=== PATIENT | male | born 1965 | race Caucasian/White ===

== ENCOUNTER 2016-12-03 12:11 | Emergency (ER) | payer OTHER ==
[2016-12-03 12:19] VITALS: BMI 34.5
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
[2016-12-03] MEDS ORDERED: OXYCODONE/APAP 5/325MG COMBO TABLET PO ONE (13:00)
[2016-12-03] MEDS ORDERED: DIPHTH,PERTUSS(ACELL),TET 0.5 ML DISP.SYRIN IM ONE (13:00)
[2016-12-03] MEDS ORDERED: METOCLOPRAMIDE HCL 10 MG TABLET (FP) PO ONE ×2 (13:00→13:34)
[2016-12-03] MEDS ORDERED: OXYCODONE/APAP 5/325MG COMBO TABLET ONE (13:35)
[2016-12-03 16:15] VITALS: BP 142/79; PULSE 65; TEMP 97.3
== END 2016-12-03 16:15 | disposition home or self-care (01) ==
LOC: JER 12:11
PROC: 3E0234Z Introduction of Serum, Toxoid and Vaccine into Muscle, Percutaneous Approach (ICD-10-PCS; principal; 2016-12-03)
DX: S06.0X9A Concussion with loss of consciousness of unspecified duration, initial encounter (principal); M79.1 Myalgia; I10 Essential (primary) hypertension; R00.0 Tachycardia, unspecified; F31.9 Bipolar disorder, unspecified; W18.39XA Other fall on same level, initial encounter; Y93.89 Activity, other specified; Y92.481 Parking lot as the place of occurrence of the external cause
CPT/HCPCS: 70450-TC; 71111-TC; 72125-TC; 73130-TC-RT; 73560-TC-RT; 90471; 90715; 99282-25

== ENCOUNTER 2017-08-10 22:03 | Emergency (ER) | payer OTHER ==
[2017-08-10 22:29] VITALS: BP 141/93; PULSE 73; TEMP 98; BMI 39.0
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
[2017-08-11] MEDS ORDERED: LOPERAMIDE HCL 2 MG CAPSULE ONE (01:58)
[2017-08-11] MEDS ORDERED: LOPERAMIDE HCL 2 MG CAPSULE PO ONE (02:17)
== END 2017-08-11 02:33 | disposition home or self-care (01) ==
LOC: JER 22:03
DX: R51 Headache (principal); G43.909 Migraine, unspecified, not intractable, without status migrainosus; F31.9 Bipolar disorder, unspecified; I10 Essential (primary) hypertension; M48.00 Spinal stenosis, site unspecified
CPT/HCPCS: 70450-TC; 99281-25; 99282-25

== ENCOUNTER 2018-03-17 19:49 | Inpatient (IN) | payer OTHER ==
[2018-03-17] MEDS ORDERED: ASPIRIN 81 MG CHEWABLE TABLETS PO ONE (19:55)
--- NOTE | 2018-03-17 19:56 | PDOC ---
Rapid Medical Evaluation Time Seen by Provider: 03/17/18 19:51 Medical Evaluation: Allergies Allergy/AdvReac Type Severity Reaction Status Date / Time morphine Allergy Rash Verified 08/10/17 22:25 meperidine HCl [From Demerol] AdvReac Verified 08/10/17 22:25 03/17/18 19:51 I have performed a brief in-person evaluation of this patient. The patient presents with a chief complaint of: SOB Pertinent physical exam findings: crackles to b/l bases, 3+ pedal edema I have ordered the following: CBC, CMP, BNP, UA, CXR, Cardiac profile, EKG, coags The patient will proceed to the ED for further evaluation. Discharge Disposition - Diagnosis SOB (shortness of breath) - Referrals - Patient Instructions - Post Discharge Activity
[2018-03-17 20:05] VITALS: BMI 36.9
[2018-03-17] MEDS ORDERED: ASPIRIN 81 MG CHEWABLE TABLETS ONE (20:14)
[2018-03-17 20:44] LABS: BASO % 0.3 % (0-2.0); EOS % 5.1 % (0-4.5); HEMATOCRIT 40.9 % (35.4-49); HEMOGLOBIN 13.8 GM/dL (11.7-16.9); LYMPH % 36.4 % (8-40); MCH 29.9 pg (25.7-33.7); MCHC 33.7 g/dl (32.0-35.9); MEAN CELL VOLUME 88.7 fl (80-96); MEAN PLT VOLUME 8.7 fl (7.5-11.1); MONO % 10.5 % (3.8-10.2); NEUT % 47.7 % (42.8-82.8); PLATELET COUNT 237 K/MM3 (134-434); RBC 4.61 M/mm3 (4.00-5.60); RDW 15.6 % (11.9-15.9); WHITE BLOOD COUNT 7.2 K/mm3 (4.0-10.0)
[2018-03-17 21:27] LABS: ALBUMIN 3.8 g/dl (3.4-5.0); ANION GAP 7 (8-16); BILIRUBIN,TOTAL 0.3 mg/dL (0.2-1.0); BLOOD UREA NITROGEN 22 mg/dL (7-18); CALCIUM 8.6 mg/dL (8.5-10.1); CHLORIDE 99 mmol/L (98-107); CO2 35 mmol/L (21-32); CREATININE 1.3 mg/dL (0.7-1.3); GLUCOSE,RANDOM 120 mg/dL (74-106); SGPT/ALT 39 U/L (12-78); SODIUM 141 mmol/L (136-145); TOT PROT 6.9 g/dl (6.4-8.2)
[2018-03-17 21:30] LABS: ALK PHOS 123 U/L (45-117); N-TERMINAL BNP 455.64 pg/ml (5-125)
[2018-03-17 21:55] LABS: POTASSIUM 4.4 mmol/L (3.5-5.1); SGOT/AST 42 U/L (15-37)
--- NOTE | 2018-03-17 22:56 | PDOC ---
Attending Attestation - HPI HPI: 03/17/18 23:01 The patient is a 53 year old male with a significant PMH of DVT (2008), CAD (s/ p catheterization), recent left knee surgery, HTN, and GERD who presents to the emergency department with left leg pain, bilateral leg swelling, and chest pain. He describes his chest pain as a pressure-like sensation localized on the left side, which is aggravated by exercise and alleviated by rest. THe patient denies fever or chills. He denies weakness or numbness. Allergies: Morphine, Meperidine HCl. <Zeke Sunshine - Last Filed: 03/17/18 23:01> - Resident Resident Name: Patel Hood - ED Attending Attestation I have performed the following: I have examined & evaluated the patient, The case was reviewed & discussed with the resident, I agree w/resident's findings & plan, Exceptions are as noted - Physicial Exam PE: 03/18/18 19:27 *Physical Exam General Appearance: Yes: Appropriately Dressed. No: Apparent Distress, Intoxicated HEENT: positive: EOMI, SIVAN, Normal ENT Inspection, Normal Voice, TMs Normal, Pharynx Normal. negative: Pale Conjunctivae, Photophobia, Scleral Icterus (R), Scleral Icterus (L) Neck: positive: Trachea midline, Normal Thyroid, Supple. negative: Tender, Rigid, Carotid bruit, Stridor, Lymphadenopathy (R), Lymphadenopathy (L), Thyromegaly Respiratory/Chest: positive: Lungs Clear, Normal Breath Sounds. negative: Chest Tender, Respiratory Distress, Accessory Muscle Use, Labored Respiration, RES, Crackles, Rales, Rhonchi, Stridor, Wheezing, Dullness Cardiovascular: positive: Regular Rhythm, Regular Rate, S1, S2. negative: Edema , JVD, Murmur, Bradycardia, Tachycardia Vascular Pulses: Dorsalis-Pedis (R): 2+, Doralis-Pedis (L): 2+ Gastrointestinal/Abdominal: positive: Normal Bowel Sounds, Flat, Soft. negative : Tender, Organomegaly, Pulsatile Mass, Increased Bowel Sounds, Decreased BS, Distended, Guarding, Rebound, Hernia, Hepatomegaly, Spleenomegaly Lymphatic: negative: Adenopathy, Tenderness Musculoskeletal: positive: Normal Inspection. negative: CVA Tenderness, Decreased Range of Motion Extremity: positive: Normal Capillary Refill, Normal Inspection, Normal Range of Motion, Pelvis Stable. negative: Tender, Pedal Edema, Swelling, Erythema Integumentary: positive: Normal Color, Dry, Warm. negative: Cyanotic, Erythema , Jaundice, Rash Neurologic: positive: production lead II-XII NML intact, Fully Oriented, Alert, Normal Mood/ Affect, Motor Strength 5/5. negative: EOM Palsy, Facial Droop, Sensory Deficit - Medical Decision Making 03/18/18 19:31 Pt admitted for further treatment <Sami Penn - Last Filed: 03/18/18 19:32> Heart Score/ECG Review #1 03/17/18 23:01 EKG done at 20:33 Vent rate 71 bpm Normal sinus rhythm Normal ECG <Zeke Sunshine - Last Filed: 03/17/18 23:01>
--- NOTE | 2018-03-17 23:02 | PDOC ---
History of Present Illness - General Chief Complaint: Pain Stated Complaint: PAIN Time Seen by Provider: 03/17/18 19:51 History Source: Patient Exam Limitations: No Limitations - History of Present Illness Initial Comments: 03/17/18 22:32 Patient is a 53M with history of blood clot in 2007 (not on blood thinners), CAD s/p cath showing unknown abnormality in LAD, ?CHF (on lasix), bipolar disease and migraines coming in today complaining of chest pain and lower extremity swelling/pain for the past week. He describes the chest pain as a pressure on the left side of his chest that worsens with exercise and improves with rest. Patient states that he had surgery on his left knee in mid-January that was unsuccessful. He endorses headache. He denies fevers, chills, nausea, vomiting. He states that he has increased his lasix recently to 80mg. Past History - Past Medical History Allergies/Adverse Reactions: Allergies Allergy/AdvReac Type Severity Reaction Status Date / Time morphine Allergy Rash Verified 03/17/18 19:56 meperidine HCl [From Demerol] AdvReac Verified 03/17/18 19:56 Home Medications: Ambulatory Orders Atenolol [Tenormin] 50 mg PO DAILY 05/19/13 Diazepam [Valium] 10 mg PO TID PRN 05/19/13 Sumatriptan [Imitrex] 100 mg PO DAILY PRN 05/19/13 Amlodipine Besylate [Norvasc -] 5 mg PO DAILY 08/14/17 Atorvastatin Ca [Lipitor] 80 mg PO DAILY 08/14/17 Benazepril HCl [Lotensin (Nf)] 10 mg PO DAILY 08/14/17 Ergocalciferol [Vitamin D2] 50,000 unit PO Q7D 08/14/17 Fluticasone Prop 0.05% Nasal [Flonase -] 3 spray NS DAILY 08/14/17 Ketotifen Fumarate [Allergy Eye Drops] 5 ml OU BID 08/14/17 Metoclopramide HCl [Reglan] 5 mg PO TID 08/14/17 Omeprazole 40 mg PO DAILY 08/14/17 Oxycodone HCl/Acetaminophen [Percocet 10-325 mg Tablet] 1 each PO BID PRN Quetiapine Fumarate [Seroquel] 100 mg PO TID 08/14/17 Zolpidem Tartrate [Ambien] 10 mg PO HS PRN 08/14/17 Cardiac Disorders: Yes (RAPID HEARTBEAT) COPD: No GI Disorders: Yes (GERD) HTN: Yes Seizures: Yes (BIPOLAR) Other medical history: DVT @ 2008 - Surgical History Abdominal Surgery: Yes (bilat hernia) Appendectomy: Yes - Suicide/Smoking/Psychosocial Hx Smoking Status: No Smoking History: Never smoked Have you smoked in the past 12 months: No Number of Cigarettes Smoked Daily: 0 Hx Alcohol Use: No Drug/Substance Use Hx: No Substance Use Type: None Review of Systems - Review of Systems Able to Perform ROS?: Yes Comments:: 03/17/18 23:03 GENERAL/CONSTITUTIONAL: No fever or chills. No weakness. HEAD, EYES, EARS, NOSE AND THROAT: No change in vision. No sore throat. CARDIOVASCULAR: No chest pain or shortness of breath RESPIRATORY: No cough, wheezing, or hemoptysis. GASTROINTESTINAL: No nausea, vomiting, diarrhea or constipation. GENITOURINARY: No dysuria, frequency, or change in urination. MUSCULOSKELETAL: Positive for left knee pain.. No neck or back pain. SKIN: No rash NEUROLOGIC: Positive for headache. Negative for vertigo, loss of consciousness, or change in strength/sensation. ENDOCRINE: No increased thirst. No abnormal weight change HEMATOLOGIC/LYMPHATIC: No anemia. Positive for history of blood clots. ALLERGIC/IMMUNOLOGIC: No hives or skin allergy. *Physical Exam - Vital Signs Last Vital Signs Temp Pulse Resp BP Pulse Ox 98.6 F 81 18 107/60 97 03/17/18 19:57 03/17/18 19:57 03/17/18 19:57 03/17/18 19:57 03/17/18 19:57 - Physical Exam Comments: 03/17/18 23:04 GENERAL: Awake, alert, and fully oriented, in no acute distress HEAD: No signs of trauma, normocephalic, atraumatic EYES: PERRLA, EOMI, sclera anicteric, conjunctiva clear ENT: Auricles normal inspection, hearing grossly normal, nares patent, oropharynx clear without exudates. Moist mucosa NECK: Normal ROM, supple, no lymphadenopathy, JVD, or masses LUNGS: No distress, speaks full sentences, clear to auscultation bilaterally HEART: Regular rate and rhythm, normal S1 and S2, no murmurs, rubs or gallops, peripheral pulses normal and equal bilaterally. ABDOMEN: Soft, nontender, normoactive bowel sounds. No guarding, no rebound. No masses EXTREMITIES: Normal inspection, Normal range of motion, no pitting edema, left leg slightly bigger than right. NEUROLOGICAL: Cranial nerves II through XII grossly intact. Normal speech, normal gait, no focal sensorimotor deficits SKIN: Warm, Dry, normal turgor, no rashes or lesions noted. Heart Score/ECG Review - History History: Moderately suspicious - Electrocardiogram EKG: Normal - Age Age: 45-65 - Risk Factors Risk Factors Heart Score: Yes Hx Obesity Based on the list above the patient has:: 1-2 risk factors - Troponin Troponin: </= normal limit - Score Heart Score - Total: 3 ED Treatment Course - LABORATORY CBC & Chemistry Diagram: 03/17/18 20:34 03/17/18 20:34 - ADDITIONAL ORDERS Additional order review: Laboratory Results 03/17/18 03/17/18 20:34 20:34 PT with INR Cancelled INR Cancelled Sodium 141 Potassium 4.4 Chloride 99 Carbon Dioxide 35 H D Anion Gap 7 L BUN 22 H D Creatinine 1.3 D Creat Clearance w eGFR 57.53 Random Glucose 120 H D Calcium 8.6 Magnesium 2.0 Total Bilirubin 0.3 D AST 42 H D ALT 39 Alkaline Phosphatase 123 H Troponin I < 0.02 B-Natriuretic Peptide 455.64 H Total Protein 6.9 Albumin 3.8 03/17/18 20:34 RBC 4.61 MCV 88.7 MCHC 33.7 RDW 15.6 D MPV 8.7 Neutrophils % 47.7 D Lymphocytes % 36.4 D Monocytes % 10.5 H Eosinophils % 5.1 H D Basophils % 0.3 - RADIOLOGY Radiology Studies Ordered: Category Date Time Status CHEST CTA [CT] Stat CT Scan 03/17/18 22:17 Ordered CXRPORT [CHEST X-RAY PORTABLE*] [RAD] Stat Radiology 03/17/18 22:19 Ordered - Medications Given in the ED: ED Medications Discontinued Medications Generic Name Dose Route Start Last Admin Trade Name Freq PRN Reason Stop Dose Admin Aspirin 162 mg 03/17/18 19:55 03/17/18 20:35 Asa - PO 03/17/18 19:56 162 mg ONCE ONE Administration Medical Decision Making - Medical Decision Making 03/17/18 23:04 Patient is a 53M with history of bipolar, ?CHF, DVT, CAD here today complaining of chest pain. Vital signs stable and normal. Patient does not seem to be a reliable historian. States that his blood pressure was 190/110 before coming home, is unsure of what medications he takes, and is difficult to redirect to questioned ask. Chest pain not very typical. Patient has multiple risk factors for DVT and PE with suspicious history. DDx includes, but is not limited to: CHF exacerbation, ACS, PE, DVT. EKG shows normal sinus rhythm with rate of 71. No st elevations/depressions. No significant t wave inversions. Normal QRS/AL/QTc intervals. Labs show: Laboratory Tests 03/17/18 20:34 Troponin I < 0.02 B-Natriuretic Peptide 455.64 H CBC reassuring. Trop undetectable, BNP mildly elevated. CXR pending. Will evaluate further with CTA and DVT US. HEART score 3. Will do second trop and discharge if negative. 03/18/18 03:14 DVT negative. CTA positive for LLL clot. INR cancelled earlier, redrawn before starting anticoagulation. Patient started on 120mg enoxaparin. Will admit to tele via hospitalist. 03/18/18 03:19 Dr Baig accepted admission. *DC/Admit/Observation/Transfer Diagnosis at time of Disposition: Pulmonary embolism - Discharge Dispostion Condition at time of disposition: Stable Decision to Admit order: Yes - Referrals - Patient Instructions - Post Discharge Activity
[2018-03-18] MEDS ORDERED: diazePAM 5 MG TABLET PO ONE (00:15)
[2018-03-18] MEDS ORDERED: diazePAM 5 MG TABLET ONE (00:31)
[2018-03-18] MEDS ORDERED: ENOXAPARIN NA (PORCINE) 120 MG/0.8 ML DISP.SYRIN SQ ONE (03:15)
[2018-03-18] MEDS ORDERED: ENOXAPARIN NA (PORCINE) 120 MG/0.8 ML DISP.SYRIN SQ SCH (03:15)
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
[2018-03-18] MEDS ORDERED: ENOXAPARIN NA (PORCINE) 60 MG/0.6 ML DISP.SYRIN SQ ONE (03:26)
[2018-03-18 03:52] LABS: INR 1.11 (0.82-1.09); PROTHROMBIN TIME (PATIENT) 12.5 SEC (9.7-13.0)
--- NOTE | 2018-03-18 06:02 | PN ---
Teaching Attending Note Name of Resident: Eliecer Fernandez ATTENDING PHYSICIAN STATEMENT I saw and evaluated the patient. Chart, data, imaging reviewed. I reviewed the resident's note and discussed the case with the resident. I agree with the resident's findings and plan as documented. SUBJECTIVE: 53 year old male with a significant PMH of DVT (2007), CAD (s/p catheterization) , recent left knee surgery, HTN, and GERD who presents to the emergency department with left knee pain, bilateral leg swelling, and sharp left sided lower chest pain since 03/17. Worsened with breathing. No recent trauma. CTA of chest showed small left lung PE. Saturating well on room air. No tachycardia. OBJECTIVE: Last Vital Signs Temp Pulse Resp BP Pulse Ox 98.2 F 68 20 110/68 99 03/18/18 01:27 03/18/18 01:27 03/18/18 01:27 03/18/18 01:27 03/18/18 01:27 general -nad, comfortable, obese heent- at, nc, no sinus tenderness cv-s1+s2+rrr chest clear to ausculation abdomen- obese, nontender ext- trace pedal edema, no cynaosis skin- no rashes Abnormal Lab Results 03/17/18 03/17/18 20:34 20:34 Monocytes % 10.5 H Eosinophils % 5.1 H D Carbon Dioxide 35 H D Anion Gap 7 L BUN 22 H D Random Glucose 120 H D AST 42 H D Alkaline Phosphatase 123 H B-Natriuretic Peptide 455.64 H ASSESSMENT AND PLAN: #Pulm embolism, unprovoked - LLL perfusion defect, likely cause of the chest pain, hemodynamicaly stable. (ACS unlikely as trop x2 negative and no acute ischemic changes on EKG) -lovenox 120mg sc q12hrs -consider to switch to oral anticoagulant for discharge -heme/onc eval for unprovoked pe for duration of anticoagulation #LE swelling, might be due to CHF or venous stasis, dvt was r/o -transthoracic echo #HTN - continue atenolol 50mg po daily - lasix 40mg po daily, norvasc 5, atenolol 50mg po dialy #DVT- on lovenox -see resident note for details
[2018-03-18] MEDS ORDERED: QUEtiapine FUMARATE 100 MG TABLET (FP) ONE (06:14)
[2018-03-18] MEDS: QUEtiapine FUMARATE 100 MG TABLET (FP) PO SCH ×3 (06:32→21:56)
--- NOTE | 2018-03-18 10:02 | PN ---
Teaching Attending Note Name of Resident: Ariadne Patricia ATTENDING PHYSICIAN STATEMENT I saw and evaluated the patient. I reviewed the resident's note and discussed the case with the resident. I agree with the resident's findings and plan as documented. SUBJECTIVE: Patient is concerned about swelling of his feet. He denies SOB but still reports discomfort in his lower left anterior chest. OBJECTIVE: Vital Signs Period Temp Pulse Resp BP Sys/[place]illo Pulse Ox Last 24 Hr 98.2 F-98.6 F 68-81 18-20 107-122/60-75 95-99 HEART: S1S2, RRR LUNGS: Clear ABDOMEN: Obese, soft, non-tender, non-distended, normal BS EXTREMITIES: Trace bilateral pedal edema Laboratory Results - last 24 hr 03/17/18 03/17/18 03/17/18 20:34 20:34 20:34 WBC 7.2 RBC 4.61 Hgb 13.8 Hct 40.9 MCV 88.7 MCH 29.9 MCHC 33.7 RDW 15.6 D Plt Count 237 MPV 8.7 Neutrophils % 47.7 D Lymphocytes % 36.4 D Monocytes % 10.5 H Eosinophils % 5.1 H D Basophils % 0.3 PT with INR Cancelled INR Cancelled Sodium 141 Potassium 4.4 Chloride 99 Carbon Dioxide 35 H D Anion Gap 7 L BUN 22 H D Creatinine 1.3 D Creat Clearance w eGFR 57.53 Random Glucose 120 H D Calcium 8.6 Magnesium 2.0 Total Bilirubin 0.3 D AST 42 H D ALT 39 Alkaline Phosphatase 123 H Creatine Kinase 274 Creatine Kinase Index 0.6 CK-MB (CK-2) 1.77 Troponin I < 0.02 B-Natriuretic Peptide 455.64 H Total Protein 6.9 Albumin 3.8 03/18/18 03/18/18 00:37 03:35 WBC RBC Hgb Hct MCV MCH MCHC RDW Plt Count MPV Neutrophils % Lymphocytes % Monocytes % Eosinophils % Basophils % PT with INR 12.50 INR 1.11 Sodium Potassium Chloride Carbon Dioxide Anion Gap BUN Creatinine Creat Clearance w eGFR Random Glucose Calcium Magnesium Total Bilirubin AST ALT Alkaline Phosphatase Creatine Kinase 284 Creatine Kinase Index 0.6 CK-MB (CK-2) 1.857 Troponin I < 0.02 B-Natriuretic Peptide Total Protein Albumin Current Medications Generic Name Dose Route Start Last Admin Trade Name Freq PRN Reason Stop Dose Admin Amlodipine Besylate 5 mg 03/18/18 10:00 Norvasc - PO DAILY [facility] Atenolol 50 mg 03/18/18 10:00 Tenormin - PO DAILY [facility] Furosemide 40 mg 03/18/18 10:00 Lasix - PO DAILY [facility] Quetiapine Fumarate 100 mg 03/18/18 06:00 03/18/18 06:32 Seroquel - PO 100 mg TID [facility] Administration ASSESSMENT AND PLAN: This is a 53 year old man with a history of HTN, CAD, DVT, bipolar disorder, migraines, chronic pain who presented to the ED with chest pain and SOB. 1. Acute pulmonary embolus - Continue Lovenox - Hematology, pulmonary consults 2. Bilateral leg edema - Clinically, no evidence of CHF - Venous dopplers negative for DVT - Echo ordered - Continue Lasix 3. CAD 4. HTN - Continue atenolol, Lasix, Norvasc 5. Bipolar disorder - Continue Seroquel 6. Migraine headaches 7. Chronic pain
[2018-03-18] MEDS: FUROSEMIDE 40 MG TABLET (FP) PO SCH (10:08)
[2018-03-18] MEDS: amLODIPine BESYLATE 5 MG TABLET (FP) PO SCH (10:08)
[2018-03-18] MEDS: ATENOLOL 50 MG TABLET (FP) PO SCH (10:09)
[2018-03-18] MEDS ORDERED: ENOXAPARIN NA (PORCINE) 100 MG/1 ML DISP.SYRIN SQ ONE (10:14)
[2018-03-18] MEDS ORDERED: PNEUMOC 13-VAL CONJ-DIP CRM/PF 0.5 ML DISP.SYRIN IM ONE (10:56)
[2018-03-18] MEDS ORDERED: PNEUMOCOCCAL 23 VACCINE 0.5 ML VIAL IM ONE (11:15)
[2018-03-18] MEDS ORDERED: QUEtiapine FUMARATE 50 MG TABLET ONE ×2 (11:31→21:32)
--- NOTE | 2018-03-18 11:44 | EKG ---
Test Reason : Blood Pressure : / mmHG Vent. Rate : 071 BPM Atrial Rate : 071 BPM P-R Int : 172 ms QRS Dur : 086 ms QT Int : 380 ms P-R-T Axes : 016 -16 029 degrees QTc Int : 412 ms NORMAL SINUS RHYTHM NORMAL ECG WHEN COMPARED WITH ECG OF 19-MAY-2013 15:58, NO SIGNIFICANT CHANGE WAS FOUND Confirmed by OLIVIER WOOD MD ([id number]) on 03/18/2018 11:44:20 AM Referred By: Confirmed By:OLIVIER WOOD MD
--- NOTE | 2018-03-18 13:04 | PN ---
Physical Exam: SUBJECTIVE: Patient seen and examined. The patient is complaining of pain on left side of his chest and fatigue. He denies SOB, palpitations, OBJECTIVE: Vital Signs Period Temp Pulse Resp BP Sys/Portillo Pulse Ox Last 24 Hr 98.2 F-98.6 F 68-81 18-20 107-122/60-75 95-99 GENERAL: The patient is awake, alert, and fully oriented, in no acute distress. HEAD: Normal with no signs of trauma. EYES: PERRL, extraocular movements intact, sclera anicteric, conjunctiva clear. No ptosis. ENT: Ears normal, nares patent, oropharynx clear without exudates, moist mucous membranes. NECK: Trachea midline, full range of motion, supple. LUNGS: Breath sounds equal, clear to auscultation bilaterally, no wheezes, no crackles, no accessory muscle use. HEART: Regular rate and rhythm, S1, S2 without murmur, rub or gallop. ABDOMEN: Soft, nontender, nondistended, normoactive bowel sounds, no guarding, no rebound, no hepatosplenomegaly, no masses. EXTREMITIES: 2+ pulses, warm, well-perfused, no edema. NEUROLOGICAL: Cranial nerves II through XII grossly intact. Normal speech, gait not observed. PSYCH: Normal mood, normal affect. SKIN: Warm, dry, normal turgor, no rashes or lesions noted Laboratory Results - last 24 hr 03/17/18 03/17/18 03/17/18 20:34 20:34 20:34 WBC 7.2 RBC 4.61 Hgb 13.8 Hct 40.9 MCV 88.7 MCH 29.9 MCHC 33.7 RDW 15.6 D Plt Count 237 MPV 8.7 Neutrophils % 47.7 D Lymphocytes % 36.4 D Monocytes % 10.5 H Eosinophils % 5.1 H D Basophils % 0.3 PT with INR Cancelled INR Cancelled Sodium 141 Potassium 4.4 Chloride 99 Carbon Dioxide 35 H D Anion Gap 7 L BUN 22 H D Creatinine 1.3 D Creat Clearance w eGFR 57.53 Random Glucose 120 H D Calcium 8.6 Magnesium 2.0 Total Bilirubin 0.3 D AST 42 H D ALT 39 Alkaline Phosphatase 123 H Creatine Kinase 274 Creatine Kinase Index 0.6 CK-MB (CK-2) 1.77 Troponin I < 0.02 B-Natriuretic Peptide 455.64 H Total Protein 6.9 Albumin 3.8 03/18/18 03/18/18 00:37 03:35 WBC RBC Hgb Hct MCV MCH MCHC RDW Plt Count MPV Neutrophils % Lymphocytes % Monocytes % Eosinophils % Basophils % PT with INR 12.50 INR 1.11 Sodium Potassium Chloride Carbon Dioxide Anion Gap BUN Creatinine Creat Clearance w eGFR Random Glucose Calcium Magnesium Total Bilirubin AST ALT Alkaline Phosphatase Creatine Kinase 284 Creatine Kinase Index 0.6 CK-MB (CK-2) 1.857 Troponin I < 0.02 B-Natriuretic Peptide Total Protein Albumin Active Medications Generic Name Dose Route Start Last Admin Trade Name Freq PRN Reason Stop Dose Admin Amlodipine Besylate 5 mg 03/18/18 10:00 03/18/18 10:08 Norvasc - PO 5 mg DAILY CHELSEY Administration Atenolol 50 mg 03/18/18 10:00 03/18/18 10:09 Tenormin - PO 50 mg DAILY CHELSEY Administration Enoxaparin Sodium 120 mg 03/18/18 22:00 Lovenox - SQ BID CHELSEY Furosemide 40 mg 03/18/18 10:00 03/18/18 10:08 Lasix - PO 40 mg DAILY CHELSEY Administration Quetiapine Fumarate 100 mg 03/18/18 06:00 03/18/18 06:32 Seroquel - PO 100 mg TID CHELSEY Administration ASSESSMENT/PLAN: 53 year r old man with HTN, hx of DVT, presents with left lower chest pain and SOB found to have left lung pe. Pulmonary embolism: -LLL, hemodynamically stable, no tachycardia, BP controlled, likely cause of the chest pain -continue Lovenox 120 mg IV BID -hematology consulted for duration of AC -Pulmonary consulted LE swelling, -might be due to CHF -echo ordered for evaluation, r/o right heart strain from PE -continue lasix 40mg po daily -Dupplex of lower extremities no acute pathology HTN: - continue atenolol 50mg po daily - cont lasix 40mg po daily, - cont norvasc 5 daily Chronic migranes: -continue Sumatriptan Hyperlipidemia: -continue Atorvastatin GERD: -cont Omeprazole Bipolar disorder: -cont Seroquel DVT: on lovenox F/E/N:no/no changes/low sodium Disposition: telemetry monitoring Problem List - Problems (1) Pulmonary embolism Code(s): I26.99 - OTHER PULMONARY EMBOLISM WITHOUT ACUTE COR PULMONALE (2) Hyperlipidemia Code(s): E78.5 - HYPERLIPIDEMIA, UNSPECIFIED (3) Hypertension Code(s): I10 - ESSENTIAL (PRIMARY) HYPERTENSION Visit type - Emergency Visit Emergency Visit: Yes ED Registration Date: 03/18/18 Care time: The patient presented to the Emergency Department on the above date and was hospitalized for further evaluation of their emergent condition. - New Patient This patient is new to me today: Yes Date on this admission: 03/18/18 - Critical Care Critical Care patient: No
--- NOTE | 2018-03-18 15:48 | CONSULT ---
Consult Consult Specialty:: Hematology - History of Present Illness History of Present Illness: 53 yr old man with hx of CAD(s/p cath), HTN, bipolar d.o with depression, migraines, chronic pain, s/p multiple joint surgeries presented to ED c/o left lower chest, nonradiating, intermittent, nonpositional, non-reproducible, a/w exertional dyspnea for one day. a/w with left hand tingling and swelling. No family hx of blood clots No family hx of cancer Hematology consulted for diagnosis of PE - History Source History Provided By: Patient, Medical Record - Alcohol/Substance Use Hx Alcohol Use: No - Smoking History Smoking history: Never smoked Have you smoked in the past 12 months: No Aproximately how many cigarettes per day: 0 Home Medications - Allergies Allergies/Adverse Reactions: Allergies Allergy/AdvReac Type Severity Reaction Status Date / Time morphine Allergy Rash Verified 03/17/18 19:56 meperidine HCl [From Demerol] AdvReac Verified 03/17/18 19:56 - Home Medications Home Medications: Ambulatory Orders Atenolol [Tenormin] 50 mg PO DAILY 05/19/13 Diazepam [Valium] 10 mg PO TID PRN 05/19/13 Sumatriptan [Imitrex] 100 mg PO DAILY PRN 05/19/13 Amlodipine Besylate [Norvasc -] 5 mg PO DAILY 08/14/17 Atorvastatin Ca [Lipitor] 80 mg PO DAILY 08/14/17 Benazepril HCl [Lotensin (Nf)] 10 mg PO DAILY 08/14/17 Ergocalciferol [Vitamin D2] 50,000 unit PO Q7D 08/14/17 Fluticasone Prop 0.05% Nasal [Flonase -] 3 spray NS DAILY 08/14/17 Ketotifen Fumarate [Allergy Eye Drops] 5 ml OU BID 08/14/17 Metoclopramide HCl [Reglan] 5 mg PO TID 08/14/17 Omeprazole 40 mg PO DAILY 08/14/17 Oxycodone HCl/Acetaminophen [Percocet 10-325 mg Tablet] 1 each PO BID PRN Quetiapine Fumarate [Seroquel] 100 mg PO TID 08/14/17 Zolpidem Tartrate [Ambien] 10 mg PO HS PRN 08/14/17 Physical Exam Vital Signs: Vital Signs Temperature 98.2 F 03/18/18 01:27 Pulse Rate 74 03/18/18 06:55 Respiratory Rate 18 03/18/18 10:00 Blood Pressure 122/75 03/18/18 06:55 O2 Sat by Pulse Oximetry (%) 95 03/18/18 06:55 Constitutional: Yes: No Distress, Calm Eyes: Yes: Conjunctiva Clear HENT: Yes: Atraumatic, Normocephalic Neck: Yes: Supple, Trachea Midline Cardiovascular: Yes: Regular Rate and Rhythm Respiratory: Yes: Regular, CTA Bilaterally Gastrointestinal: Yes: Normal Bowel Sounds, Abdomen, Obese, Other (mass-like soft tissue present below the left nipple). No: Ascites Musculoskeletal: Yes: WNL Edema: No Wound/Incision: Yes: Clean/Dry Labs: CBC, BMP 03/17/18 20:34 03/17/18 20:34 Imaging - Results Cat Scan: Report Reviewed, Image Reviewed Problem List - Problems (1) Pulmonary embolism Code(s): I26.99 - OTHER PULMONARY EMBOLISM WITHOUT ACUTE COR PULMONALE (2) Musculoskeletal pain Code(s): M79.1 - MYALGIA (3) Accidental fall Code(s): W19.XXXA - UNSPECIFIED FALL, INITIAL ENCOUNTER Qualifiers: Encounter type: initial encounter Qualified Code(s): W19.XXXA - Unspecified fall, initial encounter (4) Chest pain Code(s): R07.9 - CHEST PAIN, UNSPECIFIED Assessment/Plan New PE: Etiology: Likely multi-factorial- obesity, recent surgery, immobilization, but strongly advised the pt that he needs age appropriate cancer screening, he never had colonoscopy. May have had a DVT progressed. Alk phos slightly elevated--monitor , for US liver/spleen On physical exam: has a palpable soft tissue mass-like below his left nipple area, will order soft tissue US , to characterize further. treatment: presently lovenox, can start NOACs ( either xarelto 15 mg twice daily with food for 21 days followed by 20 mg once daily with food. or eliquis 10 mg twice daily for 7 days followed by 5 mg twice daily ). dw with him about NOACs. Please ensure insurance coverage. duration:for at least a period of 3-6m for now. for OP f/u
[2018-03-18] MEDS: ENOXAPARIN NA (PORCINE) 120 MG/0.8 ML DISP.SYRIN SQ SCH (21:55)
[2018-03-18] MEDS: diazePAM 5 MG TABLET PO PRN (21:56)
[2018-03-18] MEDS: ZOLPIDEM TARTRATE 5 MG TABLET PO PRN (21:56)
[2018-03-18] MEDS: GABAPENTIN 300 MG CAPSULE (FP) PO SCH (21:56)
[2018-03-18] MEDS: oxyCODONE HCL 5 MG TABLET PO PRN (21:56)
[2018-03-18] MEDS: ACETAMINOPHEN 325 MG TABLET (FP) PO PRN (21:57)
[2018-03-19] MEDS ORDERED: QUEtiapine FUMARATE 50 MG TABLET ONE ×2 (05:23→13:02)
[2018-03-19] MEDS: GABAPENTIN 300 MG CAPSULE (FP) PO SCH ×3 (06:08→21:55)
[2018-03-19] MEDS: QUEtiapine FUMARATE 100 MG TABLET (FP) PO SCH ×3 (06:08→21:55)
[2018-03-19] MEDS ORDERED: PT OWN MED DRAWER 7, Y5N ONE ×2 (06:17→16:15)
[2018-03-19 08:00] LABS: CHLORIDE 103 mmol/L (98-107); POTASSIUM 4.2 mmol/L (3.5-5.1); SODIUM 140 mmol/L (136-145)
[2018-03-19 08:27] LABS: ALBUMIN 3.6 g/dl (3.4-5.0); ALK PHOS 99 U/L (45-117); ANION GAP 6 (8-16); BILIRUBIN,TOTAL 0.4 mg/dL (0.2-1.0); BLOOD UREA NITROGEN 13 mg/dL (7-18); CALCIUM 8.8 mg/dL (8.5-10.1); CO2 31 mmol/L (21-32); CREATININE 0.9 mg/dL (0.7-1.3); GLUCOSE,RANDOM 100 mg/dL (74-106); SGOT/AST 28 U/L (15-37); SGPT/ALT 33 U/L (12-78); TOT PROT 6.5 g/dl (6.4-8.2)
[2018-03-19] MEDS: FLUTICASONE PROP 0.05% 16 GM NASAL SPRAY NS SCH ×2 (09:53→23:00)
[2018-03-19] MEDS: oxyCODONE HCL 5 MG TABLET PO PRN ×2 (09:54→17:28)
[2018-03-19] MEDS: ENOXAPARIN NA (PORCINE) 120 MG/0.8 ML DISP.SYRIN SQ SCH ×2 (09:55→21:55)
[2018-03-19] MEDS: ACETAMINOPHEN 325 MG TABLET (FP) PO PRN ×2 (09:55→17:27)
[2018-03-19] MEDS ORDERED: SUMAtriptan SUCCINATE 50 MG TABLET PO PRN (10:00)
--- NOTE | 2018-03-19 11:33 | PN ---
Progress Note (short form) - Note Progress Note: PULMONARY CONSULTATION DICTATED 03/19/18 IMP LLL PULMONARY EMBOLISM ? UNPROVOKED LLL NODULAR OPACITIES ?INFECTIOUS,? INFLAMMATORY? MALIGNANT CHEST PAIN ? H/O DVT 2007 HTN BIPOLAR OBESITY PLAN AC W/U FOR HYPERCOAGULABLE STATE ABX F/U CHEST CT 4-6 WKS TO DOCUMENT RESOLUTION OF LLL NODULAR OPACITIES,IF NO CHANGE PET AND POSSIBLE TISSUE DX DR SHAFER Problem List - Problems (1) Pulmonary nodule, left Code(s): R91.1 - SOLITARY PULMONARY NODULE (2) Chest pain Code(s): R07.9 - CHEST PAIN, UNSPECIFIED (3) Pulmonary embolism Code(s): I26.99 - OTHER PULMONARY EMBOLISM WITHOUT ACUTE COR PULMONALE (4) Hypertension Code(s): I10 - ESSENTIAL (PRIMARY) HYPERTENSION
[2018-03-19] MEDS: ATORVASTATIN CA 80 MG TABLET (FP) PO SCH (11:40)
[2018-03-19] MEDS: FUROSEMIDE 40 MG TABLET (FP) PO SCH (11:40)
[2018-03-19] MEDS: amLODIPine BESYLATE 5 MG TABLET (FP) PO SCH (11:40)
[2018-03-19] MEDS: PANTOPRAZOLE 40 MG TABLET (FP) PO SCH (11:40)
[2018-03-19] MEDS: ATENOLOL 50 MG TABLET (FP) PO SCH (11:40)
--- NOTE | 2018-03-19 12:03 | CONS ---
DATE OF CONSULTATION: 03/19/2018 REFERRING PHYSICIAN: Konrad Alicea MD The patient is a 53-year-old white male with a past medical history of ASHD status post CAB, hypertension, bipolar disorder, depression, migraines, chronic pain, status post multiple joint surgeries, last shoulder surgery 6 months ago, admitted to [facility] with complaint of 3- to 4-day history of increasing shortness of breath, dyspnea on exertion, left lower chest pain, nonradiating, intermittent. Patient states that about a week or so prior to admission he started noticing increasing shortness of breath on dyspnea on exertion which he normally does not have. Of note is he presented to the emergency room with the above. In the ER he underwent a CTA of the chest which revealed a left lower lobe pulmonary embolism and also small patchy nodular infiltrate in the left mid lung field. He was admitted to the floor. He was started on anticoagulation. Of note is also the patient states approximately 2 weeks prior to admission he started developing a cough productive of yellow sputum. He denied any fevers, chills, nausea, vomiting, diaphoresis at the time. He did not take any medication. He also states that approximately 4 days prior to admission he was spitting up some blood. He states that he thought it may be he cut his tongue, but he denied any pain in the tongue or recalled biting his tongue or any injury to his tongue. Patient is a nonsmoker. 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 There is no history of recent travel. He denies any history of DVT or PE in the past. He states that his mother of a stroke. Denies any other family history of DVT or PE in the past. PAST MEDICAL HISTORY: Includes ASHD status post CAB, hypertension, bipolar disorder with depression, migraines, chronic pain, status post multiple joint surgeries. Questionable DVT in the past in 2007 status post left knee surgery. This is from the chart. Patient did not discuss this with me when I asked him if he had a prior. REVIEW OF SYSTEMS: No orthopnea, no PND. Positive mild chest discomfort. No cough, no shortness of breath, no abdominal pain, no lower extremity edema. CURRENT MEDICATIONS: Include Tylenol, Lovenox, Neurontin, Seroquel, Ambien, Valium, Tenormin, Flonase, Norvasc, Lipitor, Lasix, Roxicodone, Protonix, and Imitrex. PHYSICAL EXAMINATION: General: The patient is a well-developed, obese male but awake, alert, in no acute distress. Vital Signs: He is afebrile. Blood pressure 102/56. Respiratory rate is 20. O2 saturation is 98% on room air. HEENT: His head is normocephalic, atraumatic. Neck: Supple. Heart: Regular. S1, S2. Chest: Clear. Abdomen: Soft. Bowel sounds are positive. Extremities: No cyanosis or edema. LABORATORY: WBC is 7.2, hemoglobin 13.8, hematocrit 40.9, with a platelet count of 237,000. INR is 1.11. BUN 22, creatinine 1.3. BNP is 455. Duplex lower extremities no DVT or PE. Chest CT is a left lower lobe pulmonary artery defect. There are patchy nodular opacities in the left lower lobe. IMPRESSION: 1. Left lower lobe pulmonary emboli, question provoked versus unprovoked. 2. Patchy nodular opacities in the left lower lobe, possibly inflammatory, possibly infection. Patient gives a history of cough and sputum production 2 weeks ago. Cannot exclude possible other etiology, possible malignant etiologies. 3. Bipolar. 4. Hypertension. PLAN: Continue anticoagulation. Workup for hypercoagulable state as outpatient. Antibiotic therapy. Obtain followup chest CT in approximately 4-6 weeks to document resolution of left lower lobe nodular opacities. If no change, pursue further workup, possible PET scan as well as possible biopsy to rule out possible malignant etiology. SAUL SHAFER M.D. PERFECTO/[id number]
--- NOTE | 2018-03-19 12:34 | PN ---
Physical Exam: SUBJECTIVE: Patient seen and examined OBJECTIVE: Vital Signs Period Temp Pulse Resp BP Sys/Portillo Pulse Ox Last 24 Hr 97.6 F-98.0 F 64-79 20-20 99-112/56-70 98-98 GENERAL: The patient is awake, alert, and fully oriented, in no acute distress. HEAD: Normal with no signs of trauma. EYES: PERRL, extraocular movements intact, sclera anicteric, conjunctiva clear. No ptosis. ENT: Ears normal, nares patent, oropharynx clear without exudates, moist mucous membranes. NECK: Trachea midline, full range of motion, supple. LUNGS: Breath sounds equal, clear to auscultation bilaterally, no wheezes, no crackles, no accessory muscle use. HEART: Regular rate and rhythm, S1, S2 without murmur, rub or gallop. ABDOMEN: Soft, nontender, nondistended, normoactive bowel sounds, no guarding, no rebound, no hepatosplenomegaly, no masses. EXTREMITIES: 2+ pulses, warm, well-perfused, no edema. NEUROLOGICAL: Cranial nerves II through XII grossly intact. Normal speech, gait not observed. PSYCH: Normal mood, normal affect. SKIN: Warm, dry, normal turgor, no rashes or lesions noted Laboratory Results - last 24 hr 03/19/18 07:40 Sodium 140 Potassium 4.2 Chloride 103 Carbon Dioxide 31 Anion Gap 6 L BUN 13 D Creatinine 0.9 D Creat Clearance w eGFR > 60 Random Glucose 100 Calcium 8.8 Total Bilirubin 0.4 D AST 28 D ALT 33 Alkaline Phosphatase 99 Total Protein 6.5 Albumin 3.6 Active Medications Generic Name Dose Route Start Last Admin Trade Name Freq PRN Reason Stop Dose Admin Acetaminophen 325 mg 03/18/18 20:16 03/19/18 09:55 Tylenol - PO 325 mg Q8H PRN Administration PAIN 7-10 Amlodipine Besylate 5 mg 03/18/18 10:00 03/19/18 11:40 Norvasc - PO Not Given DAILY [facility] Amoxicillin/Clavulanate Potassium 1 tab 03/19/18 17:30 Augmentin - 875mg Tablet PO BID@0800,1730 [facility] Atenolol 50 mg 03/18/18 10:00 03/19/18 11:40 Tenormin - PO Not Given DAILY [facility] Atorvastatin Calcium 80 mg 03/19/18 10:00 03/19/18 11:40 Lipitor - PO Not Given DAILY CHELSEY Diazepam 10 mg 03/18/18 20:48 03/18/18 21:56 Valium - PO 10 mg TID PRN Administration MUSCLE SPASMS Enoxaparin Sodium 120 mg 03/18/18 22:00 03/19/18 09:55 Lovenox - SQ 120 mg BID CHELSEY Administration Fluticasone Propionate 2 spray 03/19/18 10:00 03/19/18 09:53 Flonase - NS 2 sprays DAILY CHELSEY Administration Furosemide 40 mg 03/18/18 10:00 03/19/18 11:40 Lasix - PO Not Given DAILY CHELSEY Gabapentin 600 mg 03/18/18 22:00 03/19/18 06:08 Neurontin - PO 600 mg TID CHELSEY Administration Oxycodone HCl 10 mg 03/18/18 20:16 03/19/18 09:54 Roxicodone - PO 10 mg Q8H PRN Administration PAIN 7-10 Pantoprazole Sodium 40 mg 03/19/18 10:00 03/19/18 11:40 Protonix - PO Not Given DAILY CHELSEY Quetiapine Fumarate 100 mg 03/18/18 06:00 03/19/18 06:08 Seroquel - PO 100 mg TID CHELSEY Administration Sumatriptan Succinate 100 mg 03/19/18 10:00 Imitrex - PO DAILY PRN HEADACHE Zolpidem Tartrate 10 mg 03/18/18 20:10 03/18/18 21:56 Ambien - PO 10 mg HS PRN Administration INSOMNIA ASSESSMENT/PLAN: 53 year r old man with HTN, hx of DVT, presents with left lower chest pain and SOB found to have left lung pe. Pulmonary embolism: -LLL, stable, no tachycardia, BP controlled, likely cause of the chest pain -started complaining of more pain today. We will obtain EKG, troponins to r/o ACS. -continue Lovenox 120 mg IV BID -We will follow up Hematology recommendations. The patient has a history of DVT in 2007. At that time he was hospitalized in [facility]. He will need indefinite AC after the discharge from the hospital. -Pulmonary consulted. The patient was found to have left sided nodules, possibly infectious, but need to r/o malignancy. Recommendation is to start antibiotics ( Augumentin) and follow up with CT chest in 4-6 weeks as outpatient. LE swelling: -might be due to CHF -echo: normal LV function, RV function, trace pulm regurg. -continue lasix 40mg po daily -Dupplex of lower extremities no acute pathology HTN: - continue atenolol 50mg po daily - cont lasix 40mg po daily, - cont norvasc 5 daily Chronic migranes: -continue Sumatriptan Hyperlipidemia: -continue Atorvastatin GERD: -cont Omeprazole Bipolar disorder: -cont Seroquel DVT: on lovenox BID F/E/N:no/no changes/low sodium Disposition: telemetry monitoring Problem List - Problems (1) Pulmonary embolism Code(s): I26.99 - OTHER PULMONARY EMBOLISM WITHOUT ACUTE COR PULMONALE (2) Hyperlipidemia Code(s): E78.5 - HYPERLIPIDEMIA, UNSPECIFIED (3) Hypertension Code(s): I10 - ESSENTIAL (PRIMARY) HYPERTENSION Visit type - Emergency Visit Emergency Visit: Yes ED Registration Date: 03/18/18 Care time: The patient presented to the Emergency Department on the above date and was hospitalized for further evaluation of their emergent condition. - New Patient This patient is new to me today: No - Critical Care Critical Care patient: No - Discharge Referral Referred to [facility] No
[2018-03-19] MEDS: diazePAM 5 MG TABLET PO PRN ×2 (13:03→21:55)
--- NOTE | 2018-03-19 15:54 | PN ---
Teaching Attending Note Name of Resident: Ariadne Patricia ATTENDING PHYSICIAN STATEMENT I saw and evaluated the patient. I reviewed the resident's note and discussed the case with the resident. I agree with the resident's findings and plan as documented. SUBJECTIVE: Patient continues to have left-sided chest pain. OBJECTIVE: Vital Signs Period Temp Pulse Resp BP Sys/Portillo Pulse Ox Last 24 Hr 97.6 F-98.0 F 64-82 20-22 99-127/56-74 96-98 HEART: S1S2, RRR LUNGS: Clear ABDOMEN: Obese, soft, non-tender, non-distended, normal BS EXTREMITIES: Trace bilateral pedal edema Laboratory Results - last 24 hr 03/19/18 03/19/18 07:40 12:53 Sodium 140 Potassium 4.2 Chloride 103 Carbon Dioxide 31 Anion Gap 6 L BUN 13 D Creatinine 0.9 D Creat Clearance w eGFR > 60 Random Glucose 100 Calcium 8.8 Total Bilirubin 0.4 D AST 28 D ALT 33 Alkaline Phosphatase 99 Troponin I < 0.02 Total Protein 6.5 Albumin 3.6 Current Medications Generic Name Dose Route Start Last Admin Trade Name Freq PRN Reason Stop Dose Admin Acetaminophen 325 mg 03/18/18 20:16 03/19/18 09:55 Tylenol - PO 325 mg Q8H PRN Administration PAIN 7-10 Amlodipine Besylate 5 mg 03/18/18 10:00 03/19/18 11:40 Norvasc - PO Not Given DAILY [facility] Amoxicillin/Clavulanate Potassium 1 tab 03/19/18 17:30 Augmentin - 875mg Tablet PO BID@0800,1730 [facility] Atenolol 50 mg 03/18/18 10:00 03/19/18 11:40 Tenormin - PO Not Given DAILY CHELSEY Atorvastatin Calcium 80 mg 03/19/18 10:00 03/19/18 11:40 Lipitor - PO Not Given DAILY CHELSEY Diazepam 10 mg 03/18/18 20:48 03/19/18 13:03 Valium - PO 10 mg TID PRN Administration MUSCLE SPASMS Enoxaparin Sodium 120 mg 03/18/18 22:00 03/19/18 09:55 Lovenox - SQ 120 mg BID CHELSEY Administration Fluticasone Propionate 2 spray 03/19/18 10:00 03/19/18 09:53 Flonase - NS 2 sprays DAILY CHELSEY Administration Furosemide 40 mg 03/18/18 10:00 03/19/18 11:40 Lasix - PO Not Given DAILY CHELSEY Gabapentin 600 mg 03/18/18 22:00 03/19/18 14:23 Neurontin - PO 600 mg TID CHELSEY Administration Oxycodone HCl 10 mg 03/18/18 20:16 03/19/18 09:54 Roxicodone - PO 10 mg Q8H PRN Administration PAIN 7-10 Pantoprazole Sodium 40 mg 03/19/18 10:00 03/19/18 11:40 Protonix - PO Not Given DAILY CHELSEY Quetiapine Fumarate 100 mg 03/18/18 06:00 03/19/18 13:02 Seroquel - PO 100 mg TID CHELSEY Administration Sumatriptan Succinate 100 mg 03/19/18 10:00 Imitrex - PO DAILY PRN HEADACHE Zolpidem Tartrate 10 mg 03/18/18 20:10 03/18/18 21:56 Ambien - PO 10 mg HS PRN Administration INSOMNIA ASSESSMENT AND PLAN: This is a 53 year old man with a history of HTN, CAD, DVT, bipolar disorder, migraines, chronic pain who presented to the ED with chest pain and SOB. 1. Acute pulmonary embolus - Continue Lovenox - plan for discharge on Eliquis or Xarelto 2. LLL lung nodues - Pulmonary consult appreciated - Augmentin started, and plan for repeat CT in 4-6 weeks 3. Bilateral leg edema - Clinically, no evidence of CHF - Venous dopplers negative for DVT - Echo shows normal LV, normal LVEF, normal LV filling, normal RV, trace NV - Continue Lasix 3. CAD - Continue atenolol, Lipitor 4. HTN - Continue atenolol, Lasix, Norvasc 5. Bipolar disorder - Continue Seroquel 6. Migraine headaches - Continue Imitrex as needed 7. Chronic pain - Continue Neurontin, oxycodone as needed
[2018-03-19] MEDS: AMOX TR/POT CLAV 875MG/125MG TABLETS (FP) PO SCH (16:57)
[2018-03-19] MEDS: ZOLPIDEM TARTRATE 5 MG TABLET PO PRN (23:00)
--- NOTE | 2018-03-19 23:19 | PN ---
Progress Note (short form) - Note Progress Note: PAtient seen and examined Still with some left chest pain Last Vital Signs Temp Pulse Resp BP Pulse Ox 97.4 F L 77 18 123/50 98 03/20/18 06:00 03/20/18 06:00 03/20/18 06:00 03/20/18 06:00 03/19/18 21:00 Cor: RSR, No murmurs, No gallops Lungs: Clear to P&A Abd: Soft, Normal bowel sounds, No organomegaly Ext:No significant edema Labs/Meds reviewed A/P 53 y/o patient with new PE: Etiology: Likely multi-factorial- obesity, recent surgery, immobilization, but strongly advised the pt that he needs age appropriate cancer screening, he never had colonoscopy. Alk phos slightly elevated--monitor , u/s liver/spleen --fatty liver. chest u/s --no discrete mass treatment: presently lovenox, can start NOACs ( either xarelto 15 mg twice daily with food for 21 days followed by 20 mg once daily with food. or eliquis 10 mg twice daily for 7 days followed by 5 mg twice daily ). dw with him about NOACs. Please ensure insurance coverage.
[2018-03-20] MEDS: ACETAMINOPHEN 325 MG TABLET (FP) PO PRN (06:33)
[2018-03-20] MEDS: GABAPENTIN 300 MG CAPSULE (FP) PO SCH (06:33)
[2018-03-20] MEDS: QUEtiapine FUMARATE 100 MG TABLET (FP) PO SCH ×2 (06:33→08:56)
[2018-03-20] MEDS: oxyCODONE HCL 5 MG TABLET PO PRN (06:35)
[2018-03-20 07:47] LABS: CHLORIDE 105 mmol/L (98-107); POTASSIUM 4.3 mmol/L (3.5-5.1); SODIUM 141 mmol/L (136-145)
[2018-03-20 07:55] LABS: ALBUMIN 3.6 g/dl (3.4-5.0); ALK PHOS 93 U/L (45-117); ANION GAP 7 (8-16); BILIRUBIN,TOTAL 0.7 mg/dL (0.2-1.0); BLOOD UREA NITROGEN 12 mg/dL (7-18); CALCIUM 9.1 mg/dL (8.5-10.1); CO2 29 mmol/L (21-32); CREATININE 0.9 mg/dL (0.7-1.3); GLUCOSE,RANDOM 112 mg/dL (74-106); SGOT/AST 35 U/L (15-37); SGPT/ALT 37 U/L (12-78); TOT PROT 6.6 g/dl (6.4-8.2)
[2018-03-20] MEDS: AMOX TR/POT CLAV 875MG/125MG TABLETS (FP) PO SCH (08:15)
--- NOTE | 2018-03-20 08:21 | EKG ---
Test Reason : Blood Pressure : / mmHG Vent. Rate : 064 BPM Atrial Rate : 064 BPM P-R Int : 180 ms QRS Dur : 084 ms QT Int : 402 ms P-R-T Axes : 025 -03 021 degrees QTc Int : 414 ms NORMAL SINUS RHYTHM NORMAL ECG WHEN COMPARED WITH ECG OF 17-MAR-2018 20:33, NO SIGNIFICANT CHANGE WAS FOUND Confirmed by JOE ELLSWORTH MD ([id number]) on 03/20/2018 8:21:04 AM Referred By: Confirmed By:JOE ELLSWORTH MD
[2018-03-20 08:48] VITALS: BP 122/74; PULSE 75; TEMP 98
--- NOTE | 2018-03-20 08:54 | DS ---
Physical Exam: SUBJECTIVE: Patient seen and examined. having pin point L sided chest pain. states has persisted since yesterday and is worse when he rubs the area. denies SOB, fever, chills, cough, hemoptysis, N/V/C/D OBJECTIVE: Vital Signs Period Temp Pulse Resp BP Sys/Portillo Pulse Ox Last 24 Hr 97.4 F-98.0 F 64-84 18-22 98-127/48-74 96-99 PHYSICAL EXAM GENERAL: The patient is awake, alert, and fully oriented,mildly anxious HEAD: Normal with no signs of trauma. EYES: PERRL, extraocular movements intact, sclera anicteric, conjunctiva clear. ENT: Ears normal, nares patent, oropharynx clear without exudates, moist mucous membranes. NECK: Trachea midline, full range of motion, supple. LUNGS: Breath sounds equal, clear to auscultation bilaterally, no wheezes, no crackles, no accessory muscle use. HEART: Regular rate and rhythm, S1, S2 without murmur, rub or gallop. point tenderness L of sternal border ABDOMEN: Soft, nontender, nondistended, normoactive bowel sounds, no guarding, no rebound, no hepatosplenomegaly, no masses. EXTREMITIES: 2+ pulses, warm, well-perfused, no edema. NEUROLOGICAL: Cranial nerves II through XII grossly intact. Normal speech, gait not observed. PSYCH: Normal mood, normal affect. SKIN: Warm, dry, normal turgor, no rashes or lesions noted. LABS Laboratory Results - last 24 hr 03/19/18 03/19/18 03/20/18 12:53 19:00 06:33 Sodium 141 Potassium 4.3 Chloride 105 Carbon Dioxide 29 Anion Gap 7 L BUN 12 Creatinine 0.9 Creat Clearance w eGFR > 60 Random Glucose 112 H Calcium 9.1 Total Bilirubin 0.7 D AST 35 D ALT 37 Alkaline Phosphatase 93 Troponin I < 0.02 < 0.02 Total Protein 6.6 Albumin 3.6 HOSPITAL COURSE: Date of Admission:03/18/18 Date of Discharge: 03/20/18 ADmitting diagnosis: PE, LLL nodule Pre hospital course 53 yr old man with hx of CAD(s/p cath), HTN, bipolar d.o with depression, migraines, chronic pain, s/p multiple joint surgeries presented to ED c/o left lower chest, nonradiating, intermittent, nonpositional, non-reproducible, a/w exertional dyspnea for one day. a/w with left hand tingling and swelling. Chest pain improved with rest and hand swelling and tingling improves with massage. Also a/w increased lower extremity swelling, worse on the left leg for the past 7 days. He self increased his lasix to 40mg po BID for past few days, even though his PCP did not think he needed it, he felt he did but the swelling did not improve with the increased dose. says an echo about [address] Mcfarlane's office was normal. stress test about 4 yrs ago was normal. denies prolonged immobility in the last week. Subsequent hospital course Admitted to tele. CTA showed PE and LLL nodules. echo done not showing any heart strain. started on lovenox. seen by hematology and pulmonary. switched to Xarelto. continued to c/o of CP. cardiac enzymes neg x2 with no events noted on the monitor. area was tender and slightly red from patient constantly rubbing the area. pt appeared anxious given his PE and further workup. educated him on diagnosis and further workup. pt appeared more relax with counselling. stressed importance of compliance and follow up. verbalized understanding. d/c home. ( confirmed with pharmacy that Xarelto was covered) Minutes to complete discharge: 40 Discharge Summary Reason For Visit: PULMONARY EMBOLISM Current Active Problems Chest pain (Acute) Pulmonary embolism (Acute) Pulmonary nodule, left (Acute) Hypertension (Chronic) Condition: Good - Instructions Diet, Activity, Other Instructions: You were admitted to the hospital for pulmonary embolism and treated with Lovenox. After consulting with chopping machine operator, we would like you to continue taking Xarelto for 6 months. You took your first dose this AM. you will need to picker/puller the prescription (which is ready for pickup already) for your dose tonight. Start with 15 mg twice a day for 21 days. Then Continue 20 mg for 5 months and 1 week to complete full course. Please take your medications with food. Please follow up with your primary care physician in a week. You should have a repeat CT scan of your lungs in 6 weeks to follow up nodules seen here in the hospital. Follow up with the chopping machine operator in 1 month. You will need to be evaluated to see why you developed a clot. Continue taking all other medications that you were taking before coming to the hospital. For the swelling in your legs, elevate your feet after standing for long periods of time. If you experience severe chest pain, shortness of breath, palpitations, dizziness, leg swelling, pain, or worsening of any of your symptoms, come back to emergency room as soon as possible. Referrals: Amy Martinez MD [Staff Physician] - Max Mcfarlane [Non Staff, Medical] - Disposition: HOME - Home Medications Comprehensive Discharge Medication List: Ambulatory Orders Atenolol [Tenormin -] 25 mg PO BID 05/19/13 Diazepam [Valium -] 10 mg PO TID PRN 05/19/13 Sumatriptan [Imitrex] 100 mg PO DAILY PRN 05/19/13 Amlodipine Besylate [Norvasc -] 5 mg PO DAILY 08/14/17 Atorvastatin Ca [Lipitor] 80 mg PO DAILY 08/14/17 Fluticasone Prop 0.05% Nasal [Flonase -] 3 spray NS DAILY 08/14/17 Omeprazole 40 mg PO DAILY 08/14/17 Oxycodone HCl/Acetaminophen [Percocet 10-325 mg Tablet] 1 each PO TID PRN Quetiapine Fumarate [Seroquel] 100 mg PO TID 08/14/17 Zolpidem Tartrate [Ambien] 10 mg PO HS PRN 08/14/17 Gabapentin 600 mg PO TID 03/18/18 Furosemide [Lasix -] 40 mg PO DAILY tablet 03/19/18 Rivaroxaban [Xarelto -] 15 mg PO BID 21 Days #42 tab 03/19/18 Rivaroxaban [Xarelto -] 20 mg PO DAILY 157 Days #157 tablet 03/19/18 This patient is new to me today: Yes Date on this admission: 03/20/18 Emergency Visit: Yes ED Registration Date: 03/18/18 Care time: The patient presented to the Emergency Department on the above date and was hospitalized for further evaluation of their emergent condition. Critical Care patient: No - Discharge Referral Referred to [facility] No
[2018-03-20] MEDS: FLUTICASONE PROP 0.05% 16 GM NASAL SPRAY NS SCH (08:59)
[2018-03-20] MEDS: FUROSEMIDE 40 MG TABLET (FP) PO SCH (08:59)
[2018-03-20] MEDS: amLODIPine BESYLATE 5 MG TABLET (FP) PO SCH (09:00)
[2018-03-20] MEDS: ATORVASTATIN CA 80 MG TABLET (FP) PO SCH (09:00)
[2018-03-20] MEDS: ATENOLOL 50 MG TABLET (FP) PO SCH (09:00)
[2018-03-20] MEDS: PANTOPRAZOLE 40 MG TABLET (FP) PO SCH (09:00)
[2018-03-20] MEDS ORDERED: RIVAROXABAN 15 MG TABLET PO SCH (10:00)
== END 2018-03-20 13:01 | disposition home or self-care (01) | DRG 176 ==
LOC: JER 19:49 → JERBED 03-18 03:19 → UNDOADMIN 03-18 03:22 → JERBED 03-18 03:22 → J4W 03-18 08:46
PROVIDERS: ADMIT Internal Medicine; ATTEND Internal Medicine
DX: I26.99 Other pulmonary embolism without acute cor pulmonale (principal); I25.10 Atherosclerotic heart disease of native coronary artery without angina pectoris; F31.9 Bipolar disorder, unspecified; G43.909 Migraine, unspecified, not intractable, without status migrainosus; K21.9 Gastro-esophageal reflux disease without esophagitis; Z86.718 Personal history of other venous thrombosis and embolism; E66.9 Obesity, unspecified; Z68.37 Body mass index [BMI] 37.0-37.9, adult; I10 Essential (primary) hypertension; R60.9 Edema, unspecified; R74.8 Abnormal levels of other serum enzymes; R91.1 Solitary pulmonary nodule
CPT/HCPCS: 36415; 71045-TC-FY; 71275-TC; 76604; 76700-TC; 80053; 82550; 82553; 83735; 83880; 84484; 85025; 85610; 90732; 93005; 93010; 93306-TC; 93970-TC; 99283-25; G0009

== ENCOUNTER 2018-03-23 03:27 | Emergency (ER) | payer OTHER ==
[2018-03-23 04:22] VITALS: BMI 36.2
[2018-03-23] MEDS ORDERED: ASPIRIN 81 MG CHEWABLE TABLETS PO ONE (04:40)
[2018-03-23] MEDS ORDERED: ACETAMINOPHEN 1000 MG/100 ML VIAL (NON FORMULARY) IVPB ONE (04:41)
--- NOTE | 2018-03-23 04:51 | PDOC ---
History of Present Illness - General Chief Complaint: Shortness of Breath Stated Complaint: SHORTNESS OF BREATH Time Seen by Provider: 03/23/18 04:11 History Source: Patient Exam Limitations: No Limitations - History of Present Illness Initial Comments: This is a 53 YOM with h/o recently diagnosed PE, CAD (s/p cath), HTN, bipolar disorder, depression, chronic pain, multiple joint injuries and surgeries, and migraines, who p/w worsened left lower chest pain, nausea, NBNB vomiting, and inability to sleep for the past several days since recent discharge from [facility]. He was admitted to [facility] from our ED from 03/18/18-03/20/18 for acute PE without right heart strain on echo, and LLL pulmonary nodule. He was started on Lovenox and then switched to longer-term Xarelto at that time. Since discharge home he has had worsening and migrating sharp 10/10 left lower chest pain radiating to his left shoulder. He has not taken any medications for the pain. He additionally notes generalized malaise, nausea, several episodes of NBNB vomiting, inability to sleep, bilateral hand and feet cramping and tingling, and burning on urination. He additionally notes worsened anxiety. His discharge medication list from 03/20/18 discharge is below and he notes adherence to this. Atenolol [Tenormin -] 25 mg PO BID 05/19/13 Diazepam [Valium -] 10 mg PO TID PRN 05/19/13 Sumatriptan [Imitrex] 100 mg PO DAILY PRN 05/19/13 Amlodipine Besylate [Norvasc -] 5 mg PO DAILY 08/14/17 Atorvastatin Ca [Lipitor] 80 mg PO DAILY 08/14/17 Fluticasone Prop 0.05% Nasal [Flonase -] 3 spray NS DAILY 08/14/17 Omeprazole 40 mg PO DAILY 08/14/17 Oxycodone HCl/Acetaminophen [Percocet 10-325 mg Tablet] 1 each PO TID PRN Quetiapine Fumarate [Seroquel] 100 mg PO TID 08/14/17 Zolpidem Tartrate [Ambien] 10 mg PO HS PRN 08/14/17 Gabapentin 600 mg PO TID 03/18/18 Furosemide [Lasix -] 40 mg PO DAILY tablet 03/19/18 Rivaroxaban [Xarelto -] 15 mg PO BID 21 Days #42 tab 03/19/18 Rivaroxaban [Xarelto -] 20 mg PO DAILY 157 Days #157 tablet 03/19/18 Past History - Past Medical History Allergies/Adverse Reactions: Allergies Allergy/AdvReac Type Severity Reaction Status Date / Time morphine Allergy Rash Verified 03/23/18 04:10 meperidine HCl [From Demerol] AdvReac Verified 03/23/18 04:10 Home Medications: Ambulatory Orders Atenolol [Tenormin -] 25 mg PO BID 05/19/13 Diazepam [Valium -] 10 mg PO TID PRN 05/19/13 Sumatriptan [Imitrex] 100 mg PO DAILY PRN 05/19/13 Amlodipine Besylate [Norvasc -] 5 mg PO DAILY 08/14/17 Atorvastatin Ca [Lipitor] 80 mg PO DAILY 08/14/17 Fluticasone Prop 0.05% Nasal [Flonase -] 3 spray NS DAILY 08/14/17 Omeprazole 40 mg PO DAILY 08/14/17 Oxycodone HCl/Acetaminophen [Percocet 10-325 mg Tablet] 1 each PO TID PRN Quetiapine Fumarate [Seroquel] 100 mg PO TID 08/14/17 Zolpidem Tartrate [Ambien] 10 mg PO HS PRN 08/14/17 Gabapentin 600 mg PO TID 03/18/18 Furosemide [Lasix -] 40 mg PO DAILY tablet 03/19/18 Rivaroxaban [Xarelto -] 15 mg PO BID 21 Days #42 tab 03/19/18 Rivaroxaban [Xarelto -] 20 mg PO DAILY 157 Days #157 tablet 03/19/18 Cardiac Disorders: Yes (RAPID HEARTBEAT) COPD: No GI Disorders: Yes (GERD) HTN: Yes Hypercholesterolemia: Yes Seizures: Yes (BIPOLAR) Other medical history: Sleep apnea - Surgical History Abdominal Surgery: Yes (bilat hernia) Appendectomy: Yes - Suicide/Smoking/Psychosocial Hx Smoking Status: No Smoking History: Never smoked Have you smoked in the past 12 months: No Number of Cigarettes Smoked Daily: 0 Information on smoking cessation initiated: No Hx Alcohol Use: No Drug/Substance Use Hx: No Substance Use Type: None Review of Systems - Review of Systems Able to Perform ROS?: Yes Constitutional: Yes: Chills, Malaise. No: Unexplained wgt Loss HEENTM: No: Nose Congestion, Throat Pain Respiratory: Yes: Shortness of Breath (BARRIENTOS). No: Cough Cardiac (ROS): Yes: Chest Pain, Palpitations (resolved) ABD/GI: Yes: Nausea, Vomiting. No: Constipated, Diarrhea : Yes: Dysuria. No: Discharge, Hematuria Musculoskeletal: No: Back Pain, Neck Pain Integumentary: No: Bruising, Rash Neurological: Yes: Tingling. No: Headache, Numbness, Weakness, Dizziness Endocrine: No: Unexplained Weight Gain, Unexplained Weight Loss *Physical Exam - Vital Signs Last Vital Signs Temp Pulse Resp BP Pulse Ox 98.0 F 91 H 19 114/70 100 03/23/18 04:05 03/23/18 04:05 03/23/18 04:05 03/23/18 04:05 03/23/18 04:05 - Physical Exam General Appearance: Yes: Nourished, Obese, Other (pleasant adult male who appears anxious, very conversive, answering questions appropriately). No: Apparent Distress HEENT: positive: EOMI, SIVAN, Normal ENT Inspection, Normal Voice, Hearing Grossly Normal. negative: Scleral Icterus (R), Scleral Icterus (L), Nasal Congestion Neck: positive: Trachea midline, Supple. negative: Tender, Rigid Respiratory/Chest: positive: Lungs Clear, Normal Breath Sounds. negative: Respiratory Distress, Crackles, Rhonchi, Stridor, Wheezing Cardiovascular: positive: Regular Rhythm, Regular Rate, S1, S2. negative: Edema , JVD, Murmur Gastrointestinal/Abdominal: positive: Normal Bowel Sounds, Soft, Protuberent. negative: Tender, Organomegaly, Pulsatile Mass, Guarding Musculoskeletal: positive: Normal Inspection. negative: Decreased Range of Motion, Vertebral Tenderness Extremity: positive: Normal Capillary Refill, Normal Inspection, Normal Range of Motion. negative: Tender, Cyanosis Integumentary: positive: Normal Color, Dry, Warm. negative: Erythema, Rash, Bruising Neurologic: positive: demurrage man II-XII NML intact (grossly), Fully Oriented, Alert, Normal Mood/Affect, Normal Response, Motor Strength 5/5 Heart Score/ECG Review - History History: Slightly suspicious - Age Age: 45-65 - Risk Factors Risk Factors Heart Score: Yes Hx Hypercholesterolemia, Yes Hx Hypertension, Yes Smoking History, Yes Hx Obesity Based on the list above the patient has:: >/=3 risk factors or Hx atherosclerotic disease - Troponin Troponin: </= normal limit ED Treatment Course - LABORATORY CBC & Chemistry Diagram: 03/23/18 05:09 03/23/18 05:09 - ADDITIONAL ORDERS Additional order review: Laboratory Results 03/23/18 03/23/18 05:09 05:09 PT with INR 21.50 H INR 1.90 H D Sodium 139 Potassium 3.8 Chloride 102 Carbon Dioxide 31 Anion Gap 6 L BUN 14 Creatinine 1.1 D Creat Clearance w eGFR > 60 Random Glucose 92 Calcium 8.8 Magnesium 2.1 Total Bilirubin 0.4 D AST 46 H D ALT 81 H D Alkaline Phosphatase 103 Creatine Kinase 170 Troponin I < 0.02 Total Protein 7.6 Albumin 4.1 03/23/18 05:09 RBC 5.34 MCV 89.1 MCHC 32.2 RDW 15.4 MPV 8.6 Neutrophils % 64.0 D Lymphocytes % 26.4 D Monocytes % 8.0 Eosinophils % 0.7 D Basophils % 0.9 - RADIOLOGY Radiology Studies Ordered: Category Date Time Status CHEST X-RAY PORTABLE* [RAD] Stat Radiology 03/23/18 04:41 Taken - Medications Given in the ED: ED Medications Discontinued Medications Generic Name Dose Route Start Last Admin Trade Name Freq PRN Reason Stop Dose Admin Acetaminophen 1,000 mg 03/23/18 04:41 03/23/18 05:24 Ofirmev Injection - IVPB 03/23/18 04:42 1,000 mg ONCE ONE Administration Aspirin 162 mg 03/23/18 04:40 03/23/18 05:24 Asa - PO 03/23/18 04:41 Not Given ONCE ONE Quetiapine Fumarate 100 mg 03/23/18 05:32 03/23/18 05:40 Seroquel - PO 03/23/18 05:33 100 mg ONCE ONE Administration Medical Decision Making - Medical Decision Making Adult patient p/w left lower chest pain several days after diagnosis of PE and starting on Xarelto. Also with nausea, vomiting, dysuria, chills, muscle cramps, difficulty sleeping , anxiety. Initial Vital Signs Temp Pulse Resp BP Pulse Ox 98.0 F 91 H 19 114/70 100 03/23/18 04:05 03/23/18 04:05 03/23/18 04:05 03/23/18 04:05 03/23/18 04:05 Exam: Anxious, A/Ox4, DDX IBNLT: ACS, pericarditis, tamponade, aortic dissection, AAA, PTX, PE, esophageal tear, esophagitis (e.g. pill, infectious), esophageal stricture, esophageal FB, gastritis, PUD, pancreatitis, cholecystitis, cholangitis, colitis , bowel perforation, PNA/bronchitis, musculoskeletal, etc. W/U ordered: CBCD CMP Mg Phos Lipase Troponin CK CKMB Coags T&S UA UCx EKG CXR. TX ordered: monitor, ASA 324, NTG, Morphine, O2 via NC. Unlikely ACS as patient has few risk factors, no associated SOB or typical arm/ neck radiation. Unlikely pericarditis as pain is not relieved sitting forward, patient afebrile , no friction rub. Unlikely tamponade as patient has no triad of hypotension/JVD/muffled heart sounds. Unlikely AD as no ripping/tearing sensation, BP not concerningly elevated, radial pulses equal bilaterally. Unlikely AAA as pt has no midline pulsatile mass or h/o AAA/AD, denies HTN or connective tissue d/o. Unlikely pneumothorax as VS are wnl, patient has no recent h/o trauma or falls, not SOB. Unlikely PE as patient is low-risk according to Wells and Perc tools, no hypoxia or tachycardia or SOB. Unlikely esophageal tear (Lisbeth-Linares/Boerhaave) as pt denies recent EtOH or heavy vomiting/wretching. Unlikely esophagitis as pt denies heavy NSAIDs or pills soon before onset, no immunocompromise/steroids. Unlikely esophageal stricture as the patient is still able to keep down solids per usual, no prior hx. Unlikely esophageal FB as patient denies having eaten just prior to onset, no stuck sensation. Unlikely gastritis as pt denies h/o significant GERD, no overuse of EtOH. Unlikely PUD as pt does not report relief of pain ~2 hours postprandially or with antacids. Unlikely pancreatitis as pt denies EtOH use, h/o gallstones, no known hypercalcemia. Unlikely cholecystitis as no postprandial worsening. Unlikely cholangitis as pt has no fever, clinical jaundice, RUQ pain; also no hypotension or AMS. Unlikely colitis as clinically pts abdomen is not distended/no ascites, no fever, other VS wnl. Unlikely bowel perforation as patient does not appear to have acute abdomen, no peritoneal signs. Unlikely PNA/bronchitis as patient has no SOB, cough, fever, known exposures, h/ o recurrent PNA, etc. EKG: CXR: Labs: HEART score: Repeat VS: Reassessment: ADMIT Repeat cardiac enzymes ordered. HEART score indicated patient is higher risk and should be managed in hospital with cardiology consult. The patient is unsafe for discharge at this time. They require further hospital observation, workup, and treatment. Microblog sent to [facility] for admission. Spoke with [facility], in agreement patient to be admitted to: Telemetry, XXXX Decision to Admit order placed to [facility] covering attending. Consult order placed to cardiology on-call provider. DISCHARGE Repeat cardiac enzymes are negative. No new abnormal rhythms have been observed on the museum informatics specialist. On last reassessment VS are stable, patients pain is resolved, and exam is benign. The patients HEART score indicates they are low risk and do not require admission currently. The patient is appropriate for discharge with close outpatient follow up. They are comfortable with this plan and will follow up with their PCP in 1-3 days. They will follow up with their regular doctor in the next 1-3 days. Return precautions are discussed and they will come back to the ER if necessary. *DC/Admit/Observation/Transfer - Discharge Dispostion Condition at time of disposition: Fair - Referrals Referrals: ON STAFF,NOT [Primary Care Provider] - - Patient Instructions - Post Discharge Activity
--- NOTE | 2018-03-23 04:53 | PDOC ---
Attending Attestation - Resident Resident Name: Katelyn Henriquez - ED Attending Attestation I have performed the following: I have examined & evaluated the patient, The case was reviewed & discussed with the resident, I agree w/resident's findings & plan, Exceptions are as noted - HPI HPI: 03/23/18 04:51 53y M hx of PE dx on 03/18, w/o signs of heart strain, on xeralto, anxiety, bipolar dissorder was dc 3 days ago and has been having increased anxiety, palipitations and pain associated with nausea and a few episodes nbnb vomiting. pt has been having palpitations, lightheadedness, and mild L sided cp that is worse when he pushes onhis chest - these symptoms have been going on since prior to discharge. pt notes that the symptoms come and go and can occur when he is in bed and also when he is ambulating. pt notes that he feels beter after taking his anxiety meds typically. he has largely spent his time in his small room thinking about his disease and worried about what could happen. dnies any leg swleling, hemoptysis, consistent BARRIENTOS or CP on exertion. GENERAL: The patient is awake, alert, and fully oriented, Nontoxic - in no acute distress. HEAD: Normocephalic, atraumatic. EYES: extraocular movements intact, sclera anicteric, conjunctiva clear. ENT: Normal voice, Moist mucous membranes. NECK: Normal range of motion, supple LUNGS: Breath sounds equal, clear to auscultation bilaterally. No wheezes, no rhonchi, no rales. HEART: Regular rate and rhythm, normal S1 and S2 without murmur, rub or gallop. ABDOMEN: Soft, nontender, normoactive bowel sounds. No guarding, no rebound. . No CVA tenderness EXTREMITIES: Normal range of motion, no edema. No clubbing or cyanosis. No cords, erythema, or tenderness. NEUROLOGICAL: No facial assymetry, Normal speech, PSYCH: Normal mood, normal affect. SKIN: Warm, Dry, normal turgor, focal reducible tenderness to the left chest approx 4th ICS Suspect that the patient's symptoms is secondary to anxiety, will obtain troponin x 2, BMP to r/o heart strain Will obtain EKG to screen for changes - Physicial Exam PE: 03/27/18 20:07 see above - Medical Decision Making 03/23/18 07:21 pt feeling improved after quetiapine trop neg x 1 bnp pending will ck repeat trop at 9am if neg will dc with pmd fu no ekg changes suggestive of right heart strain Heart Score/ECG Review - ECG Impressions Comment:: 03/23/18 07:01 Twelve-lead EKG was performed and reviewed by me. There is normal sinus rhythm with a rate of 57 The axis is normal. The intervals are normal. There is normal R wave progression There are no ST or T wave abnormalities. Impression: Sinus bradycardia
[2018-03-23] MEDS ORDERED: ACETAMINOPHEN INJECTION 100 ML IVPB ONE (05:16)
[2018-03-23 05:26] LABS: BASO % 0.9 % (0-2.0); EOS % 0.7 % (0-4.5); HEMATOCRIT 47.6 % (35.4-49); HEMOGLOBIN 15.3 GM/dL (11.7-16.9); LYMPH % 26.4 % (8-40); MCH 28.7 pg (25.7-33.7); MCHC 32.2 g/dl (32.0-35.9); MEAN CELL VOLUME 89.1 fl (80-96); MEAN PLT VOLUME 8.6 fl (7.5-11.1); PLATELET COUNT 272 K/MM3 (134-434); RBC 5.34 M/mm3 (4.00-5.60); RDW 15.4 % (11.9-15.9); WHITE BLOOD COUNT 13.8 K/mm3 (4.0-10.0)
[2018-03-23] MEDS ORDERED: QUEtiapine FUMARATE 100 MG TABLET (FP) PO ONE (05:32)
[2018-03-23] MEDS ORDERED: QUEtiapine FUMARATE 100 MG TABLET (FP) ONE (05:37)
[2018-03-23 05:43] LABS: INR 1.9 (0.82-1.09); PROTHROMBIN TIME (PATIENT) 21.5 SEC (9.7-13.0)
[2018-03-23 05:55] LABS: ALBUMIN 4.1 g/dl (3.4-5.0); ANION GAP 6 (8-16); BILIRUBIN,TOTAL 0.4 mg/dL (0.2-1.0); BLOOD UREA NITROGEN 14 mg/dL (7-18); CALCIUM 8.8 mg/dL (8.5-10.1); CHLORIDE 102 mmol/L (98-107); CO2 31 mmol/L (21-32); CREATININE 1.1 mg/dL (0.7-1.3); GLUCOSE,RANDOM 92 mg/dL (74-106); MAGNESIUM 2.1 mg/dL (1.8-2.4); POTASSIUM 3.8 mmol/L (3.5-5.1); SGOT/AST 46 U/L (15-37); SGPT/ALT 81 U/L (12-78); SODIUM 139 mmol/L (136-145); TOT PROT 7.6 g/dl (6.4-8.2)
[2018-03-23 05:58] LABS: ALK PHOS 103 U/L (45-117)
[2018-03-23 06:42] LABS: URINE APPEARANCE CLEAR; URINE BILIRUBIN NEGATIVE (<2.0 mg/dL); URINE COLOR YELLOW; URINE GLUCOSE (UA) NEGATIVE (NEGATIVE); URINE KETONE NEGATIVE (NEGATIVE); URINE LEUK ESTERASE NEGATIVE (NEGATIVE); URINE NITRITE NEGATIVE (NEGATIVE); URINE PROTEIN NEGATIVE (NEGATIVE); URINE UROBILINOGEN NEGATIVE mg/dL (0.2-1.0)
--- NOTE | 2018-03-23 07:23 | PDOC ---
*Physical Exam - Vital Signs Last Vital Signs Temp Pulse Resp BP Pulse Ox 98.0 F 91 H 19 114/70 100 03/23/18 04:05 03/23/18 04:05 03/23/18 04:05 03/23/18 04:05 03/23/18 04:05 ED Treatment Course - LABORATORY CBC & Chemistry Diagram: 03/23/18 05:09 03/23/18 05:09 - ADDITIONAL ORDERS Additional order review: Laboratory Results 03/23/18 03/23/18 03/23/18 06:10 05:09 05:09 PT with INR 21.50 H INR 1.90 H D Sodium 139 Potassium 3.8 Chloride 102 Carbon Dioxide 31 Anion Gap 6 L BUN 14 Creatinine 1.1 D Creat Clearance w eGFR > 60 Random Glucose 92 Calcium 8.8 Magnesium 2.1 Total Bilirubin 0.4 D AST 46 H D ALT 81 H D Alkaline Phosphatase 103 Creatine Kinase 170 Troponin I < 0.02 Total Protein 7.6 Albumin 4.1 Urine Color Yellow Urine Appearance Clear Urine pH 6.0 Ur Specific [place] 1.025 Urine Protein Negative Urine Glucose (UA) Negative Urine Ketones Negative Urine Blood Negative Urine Nitrite Negative Urine Bilirubin Negative Urine Urobilinogen Negative Ur Leukocyte Esterase Negative 03/23/18 05:09 RBC 5.34 MCV 89.1 MCHC 32.2 RDW 15.4 MPV 8.6 Neutrophils % 64.0 D Lymphocytes % 26.4 D Monocytes % 8.0 Eosinophils % 0.7 D Basophils % 0.9 - Medications Given in the ED: ED Medications Discontinued Medications Generic Name Dose Route Start Last Admin Trade Name Freq PRN Reason Stop Dose Admin Acetaminophen 1,000 mg 03/23/18 04:41 03/23/18 05:24 Ofirmev Injection - IVPB 03/23/18 04:42 1,000 mg ONCE ONE Administration Aspirin 162 mg 03/23/18 04:40 03/23/18 05:24 Asa - PO 03/23/18 04:41 Not Given ONCE ONE Quetiapine Fumarate 100 mg 03/23/18 05:32 03/23/18 05:40 Seroquel - PO 03/23/18 05:33 100 mg ONCE ONE Administration Medical Decision Making - Medical Decision Making 53 yo man recently admitted for LLL subsegmental PE presenting with L lower chest pain. Sign out provided by Dr. Henriquez. Will follow-up 2nd trop, with likely d/c home. 03/23/18 07:22 *DC/Admit/Observation/Transfer Diagnosis at time of Disposition: Pleuritic pain - Discharge Dispostion Disposition: HOME Condition at time of disposition: Fair Decision to Admit order: No - Prescriptions Prescriptions: Amlodipine Besylate [Norvasc -] 5 mg PO DAILY #30 tablet Atenolol [Tenormin -] 25 mg PO BID #60 tablet Furosemide [Lasix -] 40 mg PO DAILY #30 tablet Gabapentin 600 mg PO TID #90 tablet Oxycodone HCl/Acetaminophen [Percocet 10-325 mg Tablet] 1 each PO TID #21 tablet MDD 3 tabs Rivaroxaban [Xarelto -] 15 mg PO BID 21 Days #42 tab - Referrals Referrals: ON STAFF,NOT [Non Staff, Medical] - - Patient Instructions Printed Discharge Instructions: DI for Pleurisy Additional Instructions: During your visit to the [facility] ED, you were evaluated for pain in your chest. You received an EKG and standard lab tests, which were all unremarkable. Your pain is likely secondary to the natural resolution of your prior pulmonary embolism. As the clot in your lungs breaks up, it disperses into the periphery of your lungs, causing irritation to the lining of your lung and resulting in chest pain. You are being discharged home with outpatient follow-up with your primary care provider. Please follow-up with your cereal supervisor, Dr Lee, at your earliest convenience regarding the pulmonary nodules that were noted on your xray. Please take tylenol 650mg every four hours if you experience pain/aches until your symptoms resolve. If you experience any of the following symptoms, please return to the ED: - Persistent, worsening chest pain - Pain in your neck, back, left arm or jaw - Worsening shortness of breath, abdominal pain or swelling in your legs - persistent palpitations or sensation of irregular heart beat - Any new or concerning symptoms - Post Discharge Activity
[2018-03-23 08:51] VITALS: TEMP 98.1
[2018-03-23 09:38] LABS: N-TERMINAL BNP 46.78 pg/ml (5-125)
[2018-03-23 10:35] VITALS: BP 128/83; PULSE 79
--- NOTE | 2018-03-23 11:52 | EKG ---
Test Reason : Blood Pressure : / mmHG Vent. Rate : 057 BPM Atrial Rate : 057 BPM P-R Int : 178 ms QRS Dur : 088 ms QT Int : 426 ms P-R-T Axes : 016 -10 034 degrees QTc Int : 414 ms POOR DATA QUALITY, INTERPRETATION MAY BE ADVERSELY AFFECTED SINUS BRADYCARDIA OTHERWISE NORMAL ECG WHEN COMPARED WITH ECG OF 19-MAR-2018 12:39, NO SIGNIFICANT CHANGE WAS FOUND Confirmed by MD THAD, RADHA ([id number]) on 03/23/2018 11:52:03 AM Referred By: Confirmed By:RADHA ONEIL MD
== END 2018-03-23 11:38 | disposition home or self-care (01) ==
LOC: SUPCPDRO 03:27 → JER 03:27
PROC: 3E033NZ Introduction of Analgesics, Hypnotics, Sedatives into Peripheral Vein, Percutaneous Approach (ICD-10-PCS; principal; 2018-03-23)
DX: R07.89 Other chest pain (principal); I25.10 Atherosclerotic heart disease of native coronary artery without angina pectoris; I10 Essential (primary) hypertension; Z95.5 Presence of coronary angioplasty implant and graft; F31.9 Bipolar disorder, unspecified; K21.9 Gastro-esophageal reflux disease without esophagitis; G89.29 Other chronic pain; Z86.711 Personal history of pulmonary embolism; Z79.01 Long term (current) use of anticoagulants
CPT/HCPCS: 36415; 71045-TC-FY; 80053; 81003; 82550; 82553; 83690; 83735; 83880; 84484; 85025; 85610; 87086; 93005; 93010; 96374; 99284-25; J0131

== ENCOUNTER 2018-03-31 10:51 | Observation (INO) | payer OTHER ==
[2018-03-31 10:57] VITALS: BMI 36.9
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
[2018-03-31] MEDS ORDERED: SODIUM CHLORIDE 1,000 ML IV STA ×2 (12:06→16:38)
[2018-03-31 12:39] LABS: BASO % 0.8 % (0-2.0); EOS % 1.4 % (0-4.5); HEMATOCRIT 42.4 % (35.4-49); LYMPH % 24.9 % (8-40); MCH 29.2 pg (25.7-33.7); MEAN CELL VOLUME 88.4 fl (80-96); MEAN PLT VOLUME 8.9 fl (7.5-11.1); MONO % 7.4 % (3.8-10.2); NEUT % 65.5 % (42.8-82.8); PLATELET COUNT 277 K/MM3 (134-434); RDW 15.5 % (11.9-15.9); WHITE BLOOD COUNT 11.3 K/mm3 (4.0-10.0)
[2018-03-31 12:44] LABS: INR 2.12 (0.82-1.09); PROTHROMBIN TIME (PATIENT) 23.9 SEC (9.7-13.0)
[2018-03-31 12:47] LABS: ACTIVATED PTT 34.8 SECONDS (26.9-34.4)
[2018-03-31 12:56] LABS: ALBUMIN 3.7 g/dl (3.4-5.0); ANION GAP 9 (8-16); BLOOD UREA NITROGEN 17 mg/dL (7-18); CALCIUM 8.5 mg/dL (8.5-10.1); CHLORIDE 107 mmol/L (98-107); CO2 28 mmol/L (21-32); GLUCOSE,RANDOM 113 mg/dL (74-106); POTASSIUM 3.9 mmol/L (3.5-5.1); SGOT/AST 23 U/L (15-37); SGPT/ALT 37 U/L (12-78); SODIUM 144 mmol/L (136-145)
[2018-03-31 13:01] LABS: ALK PHOS 115 U/L (45-117); BILIRUBIN,TOTAL 0.4 mg/dL (0.2-1.0); TOT PROT 6.9 g/dl (6.4-8.2)
--- NOTE | 2018-03-31 16:31 | EKG ---
Test Reason : Blood Pressure : / mmHG Vent. Rate : 069 BPM Atrial Rate : 069 BPM P-R Int : 158 ms QRS Dur : 084 ms QT Int : 394 ms P-R-T Axes : 012 -11 023 degrees QTc Int : 422 ms NORMAL SINUS RHYTHM NORMAL ECG WHEN COMPARED WITH ECG OF 31-MAR-2018 11:02, NO SIGNIFICANT CHANGE WAS FOUND Confirmed by JOE ELLSWORTH MD ([id number]) on 03/31/2018 4:31:17 PM Referred By: Confirmed By:JOE ELLSWORTH MD
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
[2018-03-31] MEDS ORDERED: ATENOLOL 50 MG TABLET (FP) PO SCH (22:00)
[2018-03-31] MEDS: ATORVASTATIN CA 80 MG TABLET (FP) PO SCH (22:53)
[2018-03-31] MEDS: diazePAM 5 MG TABLET PO PRN (22:53)
[2018-03-31] MEDS: GABAPENTIN 300 MG CAPSULE (FP) PO SCH (22:53)
[2018-03-31] MEDS: QUEtiapine FUMARATE 100 MG TABLET (FP) PO SCH (22:53)
[2018-04-01] MEDS: GABAPENTIN 300 MG CAPSULE (FP) PO SCH ×3 (06:49→21:12)
[2018-04-01] MEDS: QUEtiapine FUMARATE 100 MG TABLET (FP) PO SCH ×3 (06:49→21:13)
[2018-04-01 08:04] LABS: BASO % 0.6 % (0-2.0); EOS % 2.2 % (0-4.5); HEMATOCRIT 41.7 % (35.4-49); HEMOGLOBIN 13.8 GM/dL (11.7-16.9); LYMPH % 34.1 % (8-40); MCH 29.3 pg (25.7-33.7); MCHC 33.1 g/dl (32.0-35.9); MEAN CELL VOLUME 88.5 fl (80-96); MEAN PLT VOLUME 8.7 fl (7.5-11.1); NEUT % 55.1 % (42.8-82.8); PLATELET COUNT 257 K/MM3 (134-434); RBC 4.71 M/mm3 (4.00-5.60); RDW 15.8 % (11.9-15.9); WHITE BLOOD COUNT 9.5 K/mm3 (4.0-10.0)
[2018-04-01 08:30] LABS: CHLORIDE 106 mmol/L (98-107); POTASSIUM 3.8 mmol/L (3.5-5.1); SODIUM 142 mmol/L (136-145)
[2018-04-01 08:54] LABS: ALBUMIN 3.4 g/dl (3.4-5.0); ALK PHOS 124 U/L (45-117); ANION GAP 9 (8-16); BILIRUBIN,TOTAL 0.3 mg/dL (0.2-1.0); BLOOD UREA NITROGEN 17 mg/dL (7-18); CALCIUM 8.4 mg/dL (8.5-10.1); CO2 27 mmol/L (21-32); CREATININE 0.9 mg/dL (0.7-1.3); GLUCOSE,RANDOM 102 mg/dL (74-106); SGOT/AST 19 U/L (15-37); SGPT/ALT 35 U/L (12-78); TOT PROT 6.3 g/dl (6.4-8.2)
[2018-04-01] MEDS: RIVAROXABAN 15 MG TABLET PO SCH ×3 (09:10→21:14)
[2018-04-01] MEDS: FUROSEMIDE 40 MG TABLET (FP) PO SCH (09:11)
[2018-04-01] MEDS: PANTOPRAZOLE 40 MG TABLET (FP) PO SCH (09:11)
[2018-04-01] MEDS: amLODIPine BESYLATE 5 MG TABLET (FP) PO SCH (09:11)
[2018-04-01] MEDS: ATENOLOL 25 MG TABLET (FP) PO SCH ×2 (09:11→21:13)
[2018-04-01] MEDS ORDERED: oxyCODONE HCL 5 MG TABLET ONE (12:53)
[2018-04-01] MEDS ORDERED: ACETAMINOPHEN 325 MG TABLET (FP) ONE (12:53)
[2018-04-01] MEDS: oxyCODONE HCL 5 MG TABLET PO PRN ×2 (12:56→21:15)
[2018-04-01] MEDS: ACETAMINOPHEN 325 MG TABLET (FP) PO PRN ×2 (13:01→21:16)
--- NOTE | 2018-04-01 16:20 | PN ---
Progress Note, Physician - Current Medication List Current Medications: Active Medications Acetaminophen (Tylenol -) 325 mg PO Q6H PRN PRN Reason: PAIN LEVEL (5-10) Last Admin: 04/01/18 13:01 Dose: 325 mg Amlodipine Besylate (Norvasc -) 5 mg PO DAILY [facility] Last Admin: 04/01/18 09:11 Dose: 5 mg Atenolol (Tenormin -) 25 mg PO BID [facility] Last Admin: 04/01/18 09:11 Dose: 25 mg Atorvastatin Calcium (Lipitor -) 80 mg PO HS [facility] Last Admin: 03/31/18 22:53 Dose: 80 mg Diazepam (Valium -) 10 mg PO Q8H PRN PRN Reason: MUSCLE SPASMS Last Admin: 03/31/18 22:53 Dose: 10 mg Furosemide (Lasix -) 40 mg PO DAILY [facility] Last Admin: 04/01/18 09:11 Dose: 40 mg Gabapentin (Neurontin -) 600 mg PO TID [facility] Last Admin: 04/01/18 14:27 Dose: 600 mg Oxycodone HCl (Roxicodone -) 10 mg PO Q6H PRN PRN Reason: PAIN LEVEL (5-10) Last Admin: 04/01/18 12:56 Dose: 10 mg Pantoprazole Sodium (Protonix -) 40 mg PO DAILY [facility] Last Admin: 04/01/18 09:11 Dose: 40 mg Quetiapine Fumarate (Seroquel -) 100 mg PO TID [facility] Last Admin: 04/01/18 14:27 Dose: 100 mg Rivaroxaban (Xarelto -) 15 mg PO BIDWM [facility] Last Admin: 04/01/18 09:10 Dose: Not Given - Objective Vital Signs: Vital Signs Temperature 98.1 F 04/01/18 08:45 Pulse Rate 66 04/01/18 08:45 Respiratory Rate 18 04/01/18 08:45 Blood Pressure 133/87 04/01/18 08:45 O2 Sat by Pulse Oximetry (%) 97 04/01/18 09:10 Labs: CBC, BMP 04/01/18 07:08 04/01/18 07:08 INR, PTT INR 2.12 (0.82-1.09) H 03/31/18 12:08 Problem List - Problems (1) Near syncope Code(s): R55 - SYNCOPE AND COLLAPSE (2) Pulmonary nodule, left Code(s): R91.1 - SOLITARY PULMONARY NODULE (3) Musculoskeletal pain Code(s): M79.1 - MYALGIA (4) Chest pain Code(s): R07.9 - CHEST PAIN, UNSPECIFIED (5) Pulmonary embolism Code(s): I26.99 - OTHER PULMONARY EMBOLISM WITHOUT ACUTE COR PULMONALE (6) Hyperlipidemia Code(s): E78.5 - HYPERLIPIDEMIA, UNSPECIFIED (7) Hypertension Code(s): I10 - ESSENTIAL (PRIMARY) HYPERTENSION
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
--- NOTE | 2018-04-01 17:34 | DS ---
Physical Examination Vital Signs: Vital Signs Temperature 98.1 F 04/01/18 08:45 Pulse Rate 66 04/01/18 08:45 Respiratory Rate 18 04/01/18 08:45 Blood Pressure 133/87 04/01/18 08:45 O2 Sat by Pulse Oximetry (%) 97 04/01/18 09:10 Constitutional: Yes: No Distress HENT: Yes: Atraumatic Neck: Yes: Supple Cardiovascular: Yes: Regular Rate and Rhythm Respiratory: Yes: CTA Bilaterally Gastrointestinal: Yes: Normal Bowel Sounds Extremities: Yes: WNL Edema: No Peripheral Pulses WNL: Yes Neurological: Yes: Alert, Oriented Labs: CBC, BMP 04/01/18 07:08 04/01/18 07:08 Discharge Summary Reason For Visit: CHEST PAIN Current Active Problems Near syncope (Acute) Pulmonary nodule, left (Acute) Musculoskeletal pain (Chronic) Condition: Stable - Instructions Referrals: ON STAFF,NOT [Primary Care Provider] - - Home Medications Comprehensive Discharge Medication List: Ambulatory Orders Diazepam [Valium -] 10 mg PO TID PRN 05/19/13 Sumatriptan [Imitrex] 100 mg PO DAILY PRN 05/19/13 Atorvastatin Ca [Lipitor] 80 mg PO DAILY 08/14/17 Fluticasone Prop 0.05% Nasal [Flonase -] 3 spray NS DAILY 08/14/17 Omeprazole 40 mg PO DAILY 08/14/17 Quetiapine Fumarate [Seroquel] 100 mg PO TID 08/14/17 Zolpidem Tartrate [Ambien] 10 mg PO HS PRN 08/14/17 Amlodipine Besylate [Norvasc -] 5 mg PO DAILY #30 tablet 03/23/18 Atenolol [Tenormin -] 25 mg PO BID #60 tablet 03/23/18 Furosemide [Lasix -] 40 mg PO DAILY #30 tablet 03/23/18 Gabapentin 600 mg PO TID #90 tablet 03/23/18 Oxycodone HCl/Acetaminophen [Percocet 10-325 mg Tablet] 1 each PO TID #21 tablet MDD 3 tabs 03/23/18 Rivaroxaban [Xarelto -] 15 mg PO BID 21 Days #42 tab 03/23/18 dc home if cleared by cardiology
--- NOTE | 2018-04-01 17:53 | CON.CARD ---
Consult Consult Specialty:: Cardiology Referred by:: Dr. Barraza Reason for Consultation:: Cardiac evaluation - History of Present Illness Chief Complaint: Chest pain History of Present Illness: Patient is a 53 year old male with underlying history of CAD (previous cardiac catheterization and followed by Max Mcfarlane MD at [facility]), hypertension, bipolar disorder, depression, multiple joint injuries and surgeries, migraines and recent diagnosis of PTE now on Xarelto who presents with left sided substernal chest pain. He has been compliant with Xarelto twice a day and had seen Dr. Mcfarlane recently. He was hospitalized a week and a half ago. He denies shortness of breath or palpitations. He denies paroxysmal nocturnal dyspnea or orthopnea. He denies fever or chills. He denies nausea, vomiting, diarrhea or abdominal pain. He denies headache or lightheadedness. He also has pulmonary nodules. 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 Cardio/Vascular: Yes: CAD, HTN Pulmonary: Yes: Pulmonary Embolus Musculoskeletal: Yes: Chronic low back pain - Past Surgical History Additional Surgical History: Knee surgery, shoulder surgery - Alcohol/Substance Use Hx Alcohol Use: No - Smoking History Smoking history: Never smoked Have you smoked in the past 12 months: No Aproximately how many cigarettes per day: 0 Home Medications - Allergies Allergies/Adverse Reactions: Allergies Allergy/AdvReac Type Severity Reaction Status Date / Time morphine Allergy Rash Verified 03/31/18 10:57 meperidine HCl [From Demerol] AdvReac Verified 03/31/18 10:57 - Home Medications Home Medications: Ambulatory Orders Diazepam [Valium -] 10 mg PO TID PRN 05/19/13 Sumatriptan [Imitrex] 100 mg PO DAILY PRN 05/19/13 Atorvastatin Ca [Lipitor] 80 mg PO DAILY 08/14/17 Fluticasone Prop 0.05% Nasal [Flonase -] 3 spray NS DAILY 08/14/17 Omeprazole 40 mg PO DAILY 08/14/17 Quetiapine Fumarate [Seroquel] 100 mg PO TID 08/14/17 Zolpidem Tartrate [Ambien] 10 mg PO HS PRN 08/14/17 Amlodipine Besylate [Norvasc -] 5 mg PO DAILY #30 tablet 03/23/18 Atenolol [Tenormin -] 25 mg PO BID #60 tablet 03/23/18 Furosemide [Lasix -] 40 mg PO DAILY #30 tablet 03/23/18 Gabapentin 600 mg PO TID #90 tablet 03/23/18 Oxycodone HCl/Acetaminophen [Percocet 10-325 mg Tablet] 1 each PO TID #21 tablet MDD 3 tabs 03/23/18 Rivaroxaban [Xarelto -] 15 mg PO BID 21 Days #42 tab 03/23/18 Family Disease History - Family Disease History Other Family History: Family history of malignancy Review of Systems - Review of Systems Constitutional: denies: Chills, Fever Cardiovascular: reports: Chest Pain. denies: Palpitations, Shortness of Breath Respiratory: denies: Cough, Hemoptysis, PND, SOB, SOB on Exertion Gastrointestinal: denies: Abdominal Pain, Constipation, Diarrhea, Melena, Nausea , Rectal Bleeding, Vomiting Musculoskeletal: reports: Extremity Pain, Joint Pain Neurological: denies: Dizziness, Headache, Seizure, Syncope Psychiatric: reports: Depression Vital Signs: Vital Signs Temperature 98.1 F 04/01/18 08:45 Pulse Rate 66 04/01/18 08:45 Respiratory Rate 18 04/01/18 08:45 Blood Pressure 133/87 04/01/18 08:45 O2 Sat by Pulse Oximetry (%) 97 04/01/18 09:10 Eyes: Yes: PERRL HENT: Yes: Atraumatic Neck: Yes: Supple Respiratory: Yes: CTA Bilaterally Gastrointestinal: Yes: Normal Bowel Sounds, Soft. No: Tenderness Cardiovascular: Yes: Regular Rate and Rhythm JVD: No Carotid Bruit: No PMI: Non-Displaced Heart Sounds: Yes: S1, S2. No: Gallop Edema: No - Other Data Labs, Other Data: CBC, BMP 04/01/18 07:08 04/01/18 07:08 INR, PTT INR 2.12 (0.82-1.09) H 03/31/18 12:08 Sinus rhythm Imaging - Results Chest X-ray: Report Reviewed (Unremarkable) Cat Scan: Report Reviewed (Chest CT: Resolution of PE) EKG: Report Reviewed Problem List - Problems (1) Pulmonary nodule, left Code(s): R91.1 - SOLITARY PULMONARY NODULE (2) Chest pain Code(s): R07.9 - CHEST PAIN, UNSPECIFIED (3) Pleuritic pain Code(s): R07.81 - PLEURODYNIA (4) Pulmonary embolism Code(s): I26.99 - OTHER PULMONARY EMBOLISM WITHOUT ACUTE COR PULMONALE (5) Hyperlipidemia Code(s): E78.5 - HYPERLIPIDEMIA, UNSPECIFIED (6) Hypertension Code(s): I10 - ESSENTIAL (PRIMARY) HYPERTENSION Assessment/Plan 1. Pulmonary embolism on NOAC 2. CAD, angina pectoris 3. Hypertension 4. Hypercholesterolemia 5. Bipolar/depression 6. Degenerative joint disease and injuries PLAN: 1. Continue with NOAC as he is taking it 2. Follow up with Pulmonary (Dr. Lee) as outpatient for further work up of pulmonary nodule 3. Malignancy screening 4. Follow with Dr. Mcfarlane (window maker) as outpatient 5. Continue current cardiac medications including Atenolol, Amlodipine, Atorvastatin and Furosemide Darren Pfeiffer MD
[2018-04-01] MEDS ORDERED: QUEtiapine FUMARATE 50 MG TABLET ONE (21:08)
[2018-04-01] MEDS: ATORVASTATIN CA 80 MG TABLET (FP) PO SCH (21:12)
[2018-04-01] MEDS: diazePAM 5 MG TABLET PO PRN (21:15)
[2018-04-02] MEDS ORDERED: QUEtiapine FUMARATE 50 MG TABLET ONE (06:19)
[2018-04-02] MEDS: GABAPENTIN 300 MG CAPSULE (FP) PO SCH (06:21)
[2018-04-02] MEDS: QUEtiapine FUMARATE 100 MG TABLET (FP) PO SCH (06:22)
[2018-04-02] MEDS: oxyCODONE HCL 5 MG TABLET PO PRN (06:43)
[2018-04-02] MEDS: ACETAMINOPHEN 325 MG TABLET (FP) PO PRN (06:44)
--- NOTE | 2018-04-02 08:16 | PN ---
Progress Note (short form) - Note Progress Note: Chief Complaint: Events noted, notes reviewed, denies any chest discomfort, reports dyspnea with moderate physical exertion History of Present Illness: Seen and examined on telemetry. Events noted, notes reviewed, denies any chest discomfort, reports dyspnea with moderate physical exertion Medications: Current Medications Acetaminophen (Tylenol -) 325 mg PO Q6H PRN PRN Reason: PAIN LEVEL (5-10) Last Admin: 04/02/18 06:44 Dose: 325 mg Amlodipine Besylate (Norvasc -) 5 mg PO DAILY [facility] Last Admin: 04/01/18 09:11 Dose: 5 mg Atenolol (Tenormin -) 25 mg PO BID [facility] Last Admin: 04/01/18 21:13 Dose: 25 mg Atorvastatin Calcium (Lipitor -) 80 mg PO HS [facility] Last Admin: 04/01/18 21:12 Dose: 80 mg Diazepam (Valium -) 10 mg PO Q8H PRN PRN Reason: MUSCLE SPASMS Last Admin: 04/01/18 21:15 Dose: 10 mg Furosemide (Lasix -) 40 mg PO DAILY [facility] Last Admin: 04/01/18 09:11 Dose: 40 mg Gabapentin (Neurontin -) 600 mg PO TID [facility] Last Admin: 04/02/18 06:21 Dose: 600 mg Oxycodone HCl (Roxicodone -) 10 mg PO Q6H PRN PRN Reason: PAIN LEVEL (5-10) Last Admin: 04/02/18 06:43 Dose: 10 mg Pantoprazole Sodium (Protonix -) 40 mg PO DAILY [facility] Last Admin: 04/01/18 09:11 Dose: 40 mg Quetiapine Fumarate (Seroquel -) 100 mg PO TID [facility] Last Admin: 04/02/18 06:22 Dose: 100 mg Rivaroxaban (Xarelto -) 15 mg PO BIDWM [facility] Last Admin: 04/01/18 21:14 Dose: 15 mg Review of Systems - Review of Systems Constitutional: denies: Chills or Fever Cardiovascular: As noted above Respiratory: denies: Cough or Sputum Production Gastrointestinal: denies: Abdominal Pain, Constipation, Diarrhea, Nausea or Vomiting Musculoskeletal: reports: Joint Pain Neurological: denies: Dizziness or Headache Psychiatric: reports: Depression Vital Signs: Last Vital Signs Temp Pulse Resp BP Pulse Ox 98.3 F 62 20 103/62 98 05/25/18 06:00 04/02/18 06:00 04/02/18 06:00 04/02/18 06:00 04/02/18 01:15 Intake & Output 03/30/18 03/31/18 04/01/18 04/02/18 23:59 23:59 23:59 23:59 Intake Total 500 500 Balance 500 500 Weight 265 lb Eyes: SHASHI HEENT: Atraumatic Neck: Supple Negative JVD Cardiovascular: S1 and S2 Regular Rate and Rhythm Respiratory: CTA Bilaterally Gastrointestinal: Soft Benign Normal Bowel Sounds Ext: No Edema Labs: CBC, BMP 04/01/18 07:08 04/01/18 07:08 Hepatic Panel Total Bilirubin 0.3 mg/dL (0.2-1.0) D 04/01/18 07:08 AST 19 U/L (15-37) 04/01/18 07:08 ALT 35 U/L (12-78) 04/01/18 07:08 Alkaline Phosphatase 124 U/L (45-117) H 04/01/18 07:08 Albumin 3.4 g/dl (3.4-5.0) 04/01/18 07:08 INR, PTT INR 2.12 (0.82-1.09) H 03/31/18 12:08 Assessment/Plan ASSESSMENT: 1. Pulmonary embolism on DOAC's/Xarelto, appropriate dosage 2. CAD angina pectoris, stable 3. Hypertension 4. Hypercholesterolemia 5. Bipolar disorder/depression 6. Degenerative joint disease PLAN: 1. Continue DOAC's/Xarelto with close monitoring of CBC 2. Continue Atenolol 3. Continue Amlodipine 4. Continue Atorvastatin 5. 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 Ivette Mcfarlane upon discharge Amanda Zambrano MD
[2018-04-02] MEDS: amLODIPine BESYLATE 5 MG TABLET (FP) PO SCH (10:43)
[2018-04-02] MEDS: RIVAROXABAN 15 MG TABLET PO SCH (10:43)
[2018-04-02] MEDS: ATENOLOL 25 MG TABLET (FP) PO SCH (10:43)
[2018-04-02] MEDS: FUROSEMIDE 40 MG TABLET (FP) PO SCH (10:43)
[2018-04-02 11:38] VITALS: BP 122/66; PULSE 84; TEMP 98.1
[2018-04-02] MEDS: PANTOPRAZOLE 40 MG TABLET (FP) PO SCH (12:31)
--- NOTE | 2018-04-02 12:54 | DS ---
Physical Examination Vital Signs: Vital Signs Temperature 98.1 F 04/02/18 10:00 Pulse Rate 84 04/02/18 10:00 Respiratory Rate 22 04/02/18 10:00 Blood Pressure 122/66 04/02/18 10:00 O2 Sat by Pulse Oximetry (%) 96 04/02/18 10:00 Constitutional: Yes: No Distress HENT: Yes: Atraumatic Neck: Yes: Supple Cardiovascular: Yes: Regular Rate and Rhythm Respiratory: Yes: CTA Bilaterally Gastrointestinal: Yes: Normal Bowel Sounds Extremities: Yes: WNL Edema: No Neurological: Yes: Alert, Oriented Labs: CBC, BMP 04/01/18 07:08 04/01/18 07:08 Discharge Summary Reason For Visit: CHEST PAIN Current Active Problems Near syncope (Acute) Pulmonary nodule, left (Acute) Musculoskeletal pain (Chronic) Condition: Stable - Instructions Referrals: ON STAFF,NOT [Primary Care Provider] - - Home Medications Comprehensive Discharge Medication List: Ambulatory Orders Diazepam [Valium -] 10 mg PO TID PRN 05/19/13 Sumatriptan [Imitrex] 100 mg PO DAILY PRN 05/19/13 Atorvastatin Ca [Lipitor] 80 mg PO DAILY 08/14/17 Fluticasone Prop 0.05% Nasal [Flonase -] 3 spray NS DAILY 08/14/17 Omeprazole 40 mg PO DAILY 08/14/17 Quetiapine Fumarate [Seroquel] 100 mg PO TID 08/14/17 Zolpidem Tartrate [Ambien] 10 mg PO HS PRN 08/14/17 Amlodipine Besylate [Norvasc -] 5 mg PO DAILY #30 tablet 03/23/18 Atenolol [Tenormin -] 25 mg PO BID #60 tablet 03/23/18 Furosemide [Lasix -] 40 mg PO DAILY #30 tablet 03/23/18 Gabapentin 600 mg PO TID #90 tablet 03/23/18 Oxycodone HCl/Acetaminophen [Percocet 10-325 mg Tablet] 1 each PO TID #21 tablet MDD 3 tabs 03/23/18 Rivaroxaban [Xarelto -] 15 mg PO BID 21 Days #42 tab 03/23/18 co home
== END 2018-04-02 13:35 | disposition home or self-care (01) ==
LOC: JER 10:51 → JERBED 19:47 → J4W 04-01 20:46
PROVIDERS: ADMIT Internal Medicine; ATTEND Internal Medicine
PROC: 3E0337Z Introduction of Electrolytic and Water Balance Substance into Peripheral Vein, Percutaneous Approach (ICD-10-PCS; principal; 2018-03-31)
DX: R07.9 Chest pain, unspecified (principal); R55 Syncope and collapse; R91.1 Solitary pulmonary nodule; M79.1 Myalgia; I10 Essential (primary) hypertension; I26.99 Other pulmonary embolism without acute cor pulmonale; I25.10 Atherosclerotic heart disease of native coronary artery without angina pectoris; E78.5 Hyperlipidemia, unspecified; F31.9 Bipolar disorder, unspecified; M54.5 Low back pain; G89.29 Other chronic pain; Z88.6 Allergy status to analgesic agent; Z79.01 Long term (current) use of anticoagulants; Z95.5 Presence of coronary angioplasty implant and graft
CPT/HCPCS: 36415; 71046-TC-FY; 71275-TC; 80053; 82550; 84484; 85025; 85610; 85730; 93005; 93010; 96360; 96361; 99285-25; G0378; J7030

== ENCOUNTER 2018-08-02 15:00 | Emergency (ER) | payer OTHER ==
[2018-08-02 15:07] VITALS: BP 142/82; PULSE 81; TEMP 98.9
== END 2018-08-02 16:46 | disposition left against medical advice (07) ==
LOC: JER 15:00
DX: Z53.21 Procedure and treatment not carried out due to patient leaving prior to being seen by health care provider (principal)
CPT/HCPCS: 99281-25

== ENCOUNTER 2018-08-08 20:12 | Emergency (ER) | payer OTHER ==
[2018-08-08 20:24] VITALS: BP 117/83; PULSE 77; TEMP 98.3; BMI 37.4
--- NOTE | 2018-08-08 21:57 | PDOC ---
History of Present Illness - General Chief Complaint: Edema Stated Complaint: CHEST PAIN Time Seen by Provider: 08/08/18 21:52 - History of Present Illness Initial Comments: 08/08/18 21:55 53 yo M with h/o HTN, CAD, PE (03/2018), DVT, HLD, Bipolar disorder, Depression , chronic pain who p/w diffuse chest tightness. Patient reports waking up this AM with diffuse, non radiating, non pleuritic, chest tightness, SOB, BL LE swelling, and pressure. SOB, and chest tightness worse with ambulation. Patient in normal state of health yesterday. Also, endorses nausea without vomiting, and lightheadedness this AM. Patient takes daily Fureosomide 40 mg, but took 80 mg today. Patient denies F/C, cough, wheezing, palpitations, urinary complaints, hematuria, abdominal pain, diarrhea, constipation, BPR, weakness, sensory changes. PMHx: as noted above. Denies h/o CO, stent placement, CABG ROS: as noted SHx: Denies Etoh, tobacco use, IVDA Past History - Past Medical History Allergies/Adverse Reactions: Allergies Allergy/AdvReac Type Severity Reaction Status Date / Time ketorolac [From Toradol] Allergy Severe Difficulty Verified 05/31/18 18:19 Breathing tramadol Allergy Severe Difficulty Verified 05/31/18 18:20 Breathing trazodone Allergy Severe Difficulty Verified 05/31/18 18:20 Breathing morphine Allergy Rash Verified 05/31/18 17:46 meperidine HCl [From Demerol] AdvReac Verified 05/31/18 17:46 Home Medications: Ambulatory Orders Diazepam [Valium -] 10 mg PO TID PRN 05/19/13 Sumatriptan [Imitrex] 100 mg PO DAILY PRN 05/19/13 Atorvastatin Ca [Lipitor] 80 mg PO DAILY 08/14/17 Omeprazole 40 mg PO DAILY 08/14/17 Quetiapine Fumarate [Seroquel] 100 mg PO TID 08/14/17 Zolpidem Tartrate [Ambien] 10 mg PO HS PRN 08/14/17 Amlodipine Besylate [Norvasc -] 5 mg PO DAILY #30 tablet 03/23/18 Atenolol [Tenormin -] 25 mg PO BID #60 tablet 05/15/18 Furosemide [Lasix -] 40 mg PO DAILY #30 tablet 03/23/18 Gabapentin 600 mg PO TID #90 tablet 03/23/18 Oxycodone HCl/Acetaminophen [Percocet 10-325 mg Tablet] 1 each PO TID #21 tablet MDD 3 tabs 03/23/18 Rivaroxaban [Xarelto -] 15 mg PO BID 21 Days #42 tab 03/23/18 Ergocalciferol (Vitamin D2) [Vitamin D2] 50,000 unit PO DAILY 05/31/18 Orphenadrine Citrate 100 mg PO BID 05/31/18 Oxycodone HCl/Acetaminophen [Percocet 10-325 mg Tablet] 1 each PO BID #10 tablet MDD 2 05/31/18 Topiramate [Topiramate ER] 50 mg PO BID 05/31/18 Topiramate [Trokendi Xr] 50 mg PO BID 05/31/18 Cardiac Disorders: Yes (RAPID HEARTBEAT) COPD: No GI Disorders: Yes (GERD) HTN: Yes Hypercholesterolemia: Yes Seizures: Yes (BIPOLAR) - Surgical History Abdominal Surgery: Yes (bilat hernia) Appendectomy: Yes - Immunization History Immunization Up to Date: No - Suicide/Smoking/Psychosocial Hx Smoking Status: No Smoking History: Never smoked Have you smoked in the past 12 months: No Number of Cigarettes Smoked Daily: 0 Hx Alcohol Use: No Drug/Substance Use Hx: No Substance Use Type: None Review of Systems - Review of Systems Comments:: 08/08/18 21:56 GENERAL/CONSTITUTIONAL: No fever or chills. No weakness. HEAD, EYES, EARS, NOSE AND THROAT: No change in vision. No ear pain or discharge. No sore throat. CARDIOVASCULAR: + chest pain and shortness of breath. RESPIRATORY: No cough, wheezing, or hemoptysis. GASTROINTESTINAL: No nausea, vomiting, diarrhea or constipation. GENITOURINARY: No dysuria, frequency, or change in urination. MUSCULOSKELETAL: No joint or muscle swelling or pain. No neck or back pain. SKIN: No rash NEUROLOGIC: No headache, vertigo, loss of consciousness, or change in strength/ sensation. ENDOCRINE: No increased thirst. No abnormal weight change HEMATOLOGIC/LYMPHATIC: No anemia, easy bleeding, or history of blood clots. ALLERGIC/IMMUNOLOGIC: No hives or skin allergy. *Physical Exam - Vital Signs Last Vital Signs Temp Pulse Resp BP Pulse Ox 98.3 F 77 18 117/83 96 08/08/18 20:22 08/08/18 20:22 08/08/18 20:22 08/08/18 20:22 08/08/18 20:22 - Physical Exam Comments: 08/08/18 21:56 GENERAL: Awake, alert, and fully oriented, in no acute distress HEAD: No signs of trauma, normocephalic, atraumatic EYES: PERRLA, EOMI, sclera anicteric, conjunctiva clear ENT: Hearing grossly normal, nares patent, oropharynx clear without exudates. Moist mucosa NECK: Normal ROM, supple, no lymphadenopathy, JVD, or masses LUNGS: No distress, speaks full sentences, clear to auscultation bilaterally HEART: Regular rate and rhythm, normal S1 and S2, no murmurs, rubs or gallops, peripheral pulses normal and equal bilaterally. EXTREMITIES : BL 1+ pitting edema. Normal inspection, Normal range of motion. No clubbing or cyanosis. NEUROLOGICAL: Cranial nerves II through XII grossly intact. Normal speech, no focal sensorimotor deficits SKIN: Warm, Dry, normal turgor, no rashes or lesions noted ED Treatment Course - LABORATORY CBC & Chemistry Diagram: 08/08/18 22:22 08/08/18 22:22 Medical Decision Making - Medical Decision Making 08/08/18 22:35 53 yo M with h/o HTN, CAD, PE (03/2018), DVT, HLD, Bipolar disorder, Depression , chronic pain who p/w diffuse chest tightness. VSS, AF. ACS/CO r/o. R/o PNA. PERC +. Low risk PE based on Weils Criteria. + BL LE 1 + edema. R/o DVT. Will evaluate for acute CHF. Low suspicion AAA, Ao dissection, asthma, COPD. ED Course: CBC,CMP, Cardiac Pr. BNP, UA EKG, CXR 08/08/18 22:41 EKG: NSR with absent FRANCES, STD, Q waves. Normal interval duration and axis. 08/09/18 01:01 Trop: Neg BNP: 219 CBC: Unremarkable 08/09/18 01:02 CXR: No acute change on initial preliminary read in ED. 08/09/18 01:33 DUPLEX LE: No DVT Patient stable for d/c with return precautions. Advised to f/u with PMD, and cardiology. *DC/Admit/Observation/Transfer Diagnosis at time of Disposition: Chest pain Qualifiers: Chest pain type: unspecified Qualified Code(s): R07.9 - Chest pain, unspecified - Discharge Dispostion Condition at time of disposition: Stable Decision to Admit order: No - Referrals - Patient Instructions Printed Discharge Instructions: DI for Atypical Chest Pain Additional Instructions: Please return to the emergency department with any new or worsening symptoms or concerns. Please follow up with your primary care physician within 72 hours. - Post Discharge Activity - Attestations Physician Attestion: 08/08/18 21:57 I attest to the information provided in this note.
--- NOTE | 2018-08-08 23:00 | PDOC ---
Attending Attestation - HPI HPI: 08/08/18 23:05 The patient is a 53 year old male with significant past medical history of HTN, CAD, PE (03/2018), DVT, HLD, Bipolar disorder, Depression, chronic pain who presents to the ED with complaint of diffuse chest tightness since the morning. He also reports associated SOB and swelling to his lower extremities. He reports his chest tightness and SOB is exacerbated with walking. Patient reportedly takes daily Furosemide 40 mg, but took 80 mg today. The patient denies headache and dizziness. The patient denies fever, chills, vomit, diarrhea and constipation. The patient denies dysuria, frequency, urgency and hematuria. Social Hx: Denies Etoh, tobacco use, IVDA Allergies: ketorolac, tramadol, trazadone, morphine, meperidine. - Physicial Exam PE: 08/08/18 23:06 GENERAL: Well-appearing, well-nourished. No apparent distress. HEENT: Normocephalic, atraumatic. PERRL, EOM intact. CARDIOVASCULAR: Normal S1, S2. Regular rate and rhythm. PULMONARY: Clear to auscultation bilaterally. ABDOMEN: Soft, non-distended, non-tender. EXTREMITIES: (+) bilateral 1+ pitting Edema to lower extremities. The right LE is larger than the left LE. Normal ROM in all four extremities. SKIN: (+) scattered areas of excoriation to the bilateral LE. No weeping or ulcerations. Warm, dry. No rash NEUROLOGICAL: No focal neurological deficits. - Medical Decision Making 08/08/18 23:06 Documentation prepared by Alap Wang, acting as medical staff director for Arlen Sweeney MD 08/08/18 23:07 I agree with Resident note and plan. 08/09/2018 01:07 EST EXAM: Ultrasound DUPLEX VASCULAR US-2 LEGS HISTORY: Concern for deep vein thrombosis COMPARISON: None. FINDINGS: Ultrasound of the left and right lower extremity veins demonstrates normal compression flow and augmentation IMPRESSION: No deep vein thrombosis THIS DOCUMENT HAS BEEN ELECTRONICALLY SIGNED Archie Rodriguez MD <Alpa Wang - Last Filed: 08/09/18 01:20> - Resident Resident Name: Louis Dixonson - ED Attending Attestation I have performed the following: I have examined & evaluated the patient, The case was reviewed & discussed with the resident, I agree w/resident's findings & plan, Exceptions are as noted - HPI HPI: 08/08/18 22:56 53 yo male presents with concern of left leg swelling. HE had been on lasix in the past. Roberto Carlos any trauma - Medical Decision Making labs reviewed duplex doppler 08/09/18 00:03 08/09/18 01:26 The duplex doppler is NEGATIVE for dvt in his lowr extremities lqabs reviews imp edema plan continue his regular medications and follow up with his PCP <Arlen Sweeney - Last Filed: 08/09/18 01:27>
[2018-08-08 23:05] LABS: BASO % 1.3 % (0-2.0); EOS % 2.9 % (0-4.5); HEMATOCRIT 42.9 % (35.4-49); HEMOGLOBIN 14.3 GM/dL (11.7-16.9); LYMPH % 33.6 % (8-40); MCH 30.3 pg (25.7-33.7); MCHC 33.4 g/dl (32.0-35.9); MEAN CELL VOLUME 90.7 fl (80-96); MEAN PLT VOLUME 8.7 fl (7.5-11.1); NEUT % 54.2 % (42.8-82.8); PLATELET COUNT 190 K/MM3 (134-434); RBC 4.73 M/mm3 (4.00-5.60); RDW 14.7 % (11.9-15.9); WHITE BLOOD COUNT 9.5 K/mm3 (4.0-10.0)
[2018-08-08 23:17] LABS: INR 1.07 (0.83-1.09); PROTHROMBIN TIME (PATIENT) 12.6 SEC (9.7-13.0)
[2018-08-08 23:46] LABS: ALBUMIN 3.9 g/dl (3.4-5.0); ALK PHOS 160 U/L (45-117); ANION GAP 10 MMOL/L (8-16); BILIRUBIN,TOTAL 0.3 mg/dL (0.2-1); BLOOD UREA NITROGEN 23 mg/dL (7-18); CALCIUM 8.4 mg/dL (8.5-10.1); CHLORIDE 102 mmol/L (98-107); CO2 29 mmol/L (21-32); CREATININE 1.2 mg/dL (0.55-1.3); GLUCOSE,RANDOM 120 mg/dL (74-106); POTASSIUM 3.7 mmol/L (3.5-5.1); SGOT/AST 41 U/L (15-37); SGPT/ALT 48 U/L (13-61); SODIUM 140 mmol/L (136-145); TOT PROT 7.2 g/dl (6.4-8.2)
--- NOTE | 2018-08-10 10:47 | EKG ---
Test Reason : Blood Pressure : / mmHG Vent. Rate : 073 BPM Atrial Rate : 073 BPM P-R Int : 164 ms QRS Dur : 082 ms QT Int : 398 ms P-R-T Axes : 028 -22 039 degrees QTc Int : 438 ms POOR DATA QUALITY, INTERPRETATION MAY BE ADVERSELY AFFECTED NORMAL SINUS RHYTHM NORMAL ECG WHEN COMPARED WITH ECG OF 02-AUG-2018 15:03, NO SIGNIFICANT CHANGE WAS FOUND Confirmed by Martin Huffman MD ([id number]) on 08/10/2018 10:46:39 AM Referred By: Confirmed By:Martin Huffman MD
== END 2018-08-09 01:30 | disposition home or self-care (01) ==
LOC: JER 20:12
DX: R07.9 Chest pain, unspecified (principal); I25.10 Atherosclerotic heart disease of native coronary artery without angina pectoris; I10 Essential (primary) hypertension; E78.5 Hyperlipidemia, unspecified; F31.9 Bipolar disorder, unspecified; F32.9 Major depressive disorder, single episode, unspecified; G89.29 Other chronic pain; Z86.711 Personal history of pulmonary embolism; Z86.718 Personal history of other venous thrombosis and embolism; Z79.01 Long term (current) use of anticoagulants; Z88.8 Allergy status to other drugs, medicaments and biological substances
CPT/HCPCS: 36415; 71045-TC-FY; 80053; 82550; 82553; 83880; 84484; 85025; 85610; 93005; 93010; 93970-TC; 99282-25

== ENCOUNTER 2018-08-10 04:57 | Emergency (ER) | payer OTHER ==
--- NOTE | 2018-08-10 05:28 | PDOC ---
History of Present Illness - General Chief Complaint: Shortness of Breath Stated Complaint: DIFFICULTY BREATHING Time Seen by Provider: 08/10/18 05:28 History Source: Patient Exam Limitations: No Limitations - History of Present Illness Initial Comments: 08/10/18 06:13 53 year old male with PMH PE (03/2018), DVT, HTN, HLD, CAD, bipolar disorder, chronic pain BIBA for SOB x4 days. He states that he has been feeling SOB when he walks up 10 steps, usually he would be able to walk further. He admits to left sided chest pain, described as chest tightness and heavy, 7/10, constant but waxing and waning, nonradiating, aggravated by exertion, relieved by rest and muscle relaxer. Pt admits to LUQ pain, bilateral lower extremity swelling. Denies fever, chills, nausea, vomiting, diarrhea, headache, weakness. He states he doubled his dose of Lasix yesterday to try to reduce his feet swelling, total of 80 mg, without relief of his symptoms. He states that last night he took an ambien and diazepam to go to sleep, had a dream that he was drowning, woke up and had a "panic attack". Pt states he is concerned that he has another PE. Pt was seen in ED for similar symptoms 08/08 - /L duplex of lower extremity was negative for DVT. PCP - Dr. Deanna Lee Allergies - ketorolac, tramadol, trazodone, morphine, meperidine Past History - Past Medical History Allergies/Adverse Reactions: Allergies Allergy/AdvReac Type Severity Reaction Status Date / Time ketorolac [From Toradol] Allergy Severe Difficulty Verified 08/10/18 06:22 Breathing tramadol Allergy Severe Difficulty Verified 08/10/18 06:22 Breathing trazodone Allergy Severe Difficulty Verified 08/10/18 06:22 Breathing morphine Allergy Rash Verified 08/10/18 06:22 meperidine HCl [From Demerol] AdvReac Verified 08/10/18 06:22 Home Medications: Ambulatory Orders Diazepam [Valium -] 10 mg PO TID PRN 05/19/13 Sumatriptan [Imitrex] 100 mg PO DAILY PRN 05/19/13 Atorvastatin Ca [Lipitor] 80 mg PO DAILY 08/14/17 Omeprazole 40 mg PO DAILY 08/14/17 Quetiapine Fumarate [Seroquel] 100 mg PO TID 08/14/17 Zolpidem Tartrate [Ambien] 10 mg PO HS PRN 08/14/17 Amlodipine Besylate [Norvasc -] 5 mg PO DAILY #30 tablet 03/23/18 Atenolol [Tenormin -] 25 mg PO BID #60 tablet 03/23/18 Furosemide [Lasix -] 40 mg PO DAILY #30 tablet 03/23/18 Gabapentin 600 mg PO TID #90 tablet 03/23/18 Rivaroxaban [Xarelto -] 15 mg PO BID 21 Days #42 tab 03/23/18 Orphenadrine Citrate 100 mg PO BID 05/31/18 Oxycodone HCl/Acetaminophen [Percocet 10-325 mg Tablet] 1 each PO BID #10 tablet MDD 2 05/31/18 Topiramate [Topiramate ER] 50 mg PO BID 05/31/18 Topiramate [Trokendi Xr] 50 mg PO BID 05/31/18 Cardiac Disorders: Yes (RAPID HEARTBEAT) COPD: No GI Disorders: Yes (GERD) HTN: Yes Hypercholesterolemia: Yes Seizures: Yes (BIPOLAR) - Surgical History Abdominal Surgery: Yes (bilat hernia) Appendectomy: Yes - Immunization History Immunization Up to Date: No - Suicide/Smoking/Psychosocial Hx Smoking Status: No Smoking History: Never smoked Have you smoked in the past 12 months: No Number of Cigarettes Smoked Daily: 0 Hx Alcohol Use: No Drug/Substance Use Hx: No Substance Use Type: None Review of Systems - Review of Systems Able to Perform ROS?: Yes Comments:: 08/10/18 06:22 General: denies fever, chills, night sweats, generalized weakness. HEENT: denies sore throat, rhinorrhea, ear pain. Heart: admits to chest tightness, chest pain, lower extremity swelling. denies palpitations, syncope, diaphoresis. Respiratory: admits to shortness of breath. denies cough, sputum production, hemoptysis. Abdomen: admits to abdominal pain. denies nausea, vomiting, diarrhea, constipation, blood in stool. : denies dysuria, increased urinary frequency, hematuria, urinary incontinence , flank pain. Back: denies back pain. Musculoskeletal: denies joint pain, muscle pain, joint swelling. Neurological: denies headache, dizziness, numbness, tingling, weakness. Skin: denies rash, laceration, abrasion. *Physical Exam - Physical Exam Comments: 08/10/18 06:23 Constitutional: Well-nourished, Well-developed, appearing stated age. morbidly obese. HEENT: head is normocephalic, atraumatic. EOMI. PERRLA. Neck: supple. Full ROM. Heart: regular rhythm. no murmurs, rubs or gallops. Lungs: clear to auscultation bilaterally. no crackles, rhonchi or wheezing. no stridor. Abdomen: soft. protuberant. mild tenderness to palpation of LUQ. normal bowel sounds. no rebound, guarding, masses. Extremities: Peripheral pulses intact and equal. No lower extremity edema. Neurological: CN 2-12 grossly intact. Moves all four extremities. Psych: awake, alert, oriented x3. Follows commands. Answers questions appropriately. Skin: linear healed surgical scar to left knee. ED Treatment Course - LABORATORY CBC & Chemistry Diagram: 08/10/18 05:59 08/10/18 05:59 Medical Decision Making - Medical Decision Making 08/10/18 06:24 53 year old male with PMH PE (03/2018), DVT, HTN, HLD, CAD, bipolar disorder, chronic pain BIBA for SOB x4 days. Last dose of Xarelto x4 days ago. Initial Vital Signs Temp Pulse Resp BP Pulse Ox 99.2 F 85 19 142/67 97 08/10/18 05:00 08/10/18 05:00 08/10/18 05:00 08/10/18 05:00 08/10/18 05:00 Afebrile. No tachycardia. No hypoxia on room air. Hypertension. Concern for CHF, lower extremity swelling, SOB. - Pending CXR - Pending BNP Concern for ACS/arrythmia - Pending EKG, cardiac enzymes Low concern for Pneumonia, afebrile, no cough - Pending CXR, CBC Low concern for PE, SOB but no hypoxia, no tachycardia, B/L LE US Duplex 08/08 negative for DVT - Pending d-dimer 08/10/18 06:39 Pt reassessed, sleeping. 08/10/18 07:17 CBC WBC 7.7 K/mm3 (4.0-10.0) 10/02/18 05:59 RBC 4.66 M/mm3 (4.00-5.60) 08/10/18 05:59 Hgb 13.8 GM/dL (11.7-16.9) 08/10/18 05:59 Hct 42.3 % (35.4-49) 08/10/18 05:59 MCV 90.9 fl (80-96) 08/10/18 05:59 MCH 29.7 pg (25.7-33.7) 08/10/18 05:59 MCHC 32.7 g/dl (32.0-35.9) 08/10/18 05:59 RDW 15.0 % (11.9-15.9) 08/10/18 05:59 Plt Count 195 K/MM3 (134-434) 08/10/18 05:59 MPV 8.6 fl (7.5-11.1) 08/10/18 05:59 Absolute Neuts (auto) 3.7 K/mm3 (1.5-8.0) 08/10/18 05:59 Neutrophils % 47.3 % (42.8-82.8) 08/10/18 05:59 Lymphocytes % 38.0 % (8-40) 08/10/18 05:59 Monocytes % 9.3 % (3.8-10.2) 08/10/18 05:59 Eosinophils % 4.1 % (0-4.5) 08/10/18 05:59 Basophils % 1.3 % (0-2.0) 08/10/18 05:59 Nucleated RBC % 0 % (0-0) 08/10/18 05:59 No leukocytosis. No anemia. CMP Sodium 139 mmol/L (136-145) 08/10/18 05:59 Potassium 3.9 mmol/L (3.5-5.1) 08/10/18 05:59 Chloride 103 mmol/L (98-107) 08/10/18 05:59 Carbon Dioxide 29 mmol/L (21-32) 08/10/18 05:59 Anion Gap 7 MMOL/L (8-16) L 08/10/18 05:59 BUN 20 mg/dL (7-18) H 08/10/18 05:59 Creatinine 1.0 mg/dL (0.55-1.3) 08/10/18 05:59 Creat Clearance w eGFR > 60 (>60) 08/10/18 05:59 Random Glucose 117 mg/dL (74-106) H 08/10/18 05:59 Calcium 8.3 mg/dL (8.5-10.1) L 08/10/18 05:59 Total Bilirubin 0.2 mg/dL (0.2-1) 08/10/18 05:59 AST 36 U/L (15-37) 08/10/18 05:59 ALT 44 U/L (13-61) 08/10/18 05:59 Alkaline Phosphatase 149 U/L (45-117) H 08/10/18 05:59 Creatine Kinase 432 IU/L (26-308) H 08/10/18 05:59 Troponin I < 0.02 ng/ml (0.00-0.05) 08/10/18 05:59 Total Protein 6.8 g/dl (6.4-8.2) 08/10/18 05:59 Albumin 3.7 g/dl (3.4-5.0) 08/10/18 05:59 No electrolyte abnormalities. No acute kidney injury. Elevated CK, similar to prior. Normal Troponin. D-dimer <200. PE unlikely. I signed the patient out to Dr. Lloyd, who will be assuming care for the patient while he is in the Emergency Department. *DC/Admit/Observation/Transfer Diagnosis at time of Disposition: Shortness of breath - Discharge Dispostion Disposition: HOME Condition at time of disposition: Good - Referrals Referrals: Jacqueline Sylvester MD [Primary Care Provider] - - Patient Instructions Printed Discharge Instructions: DI for Shortness of Breath Additional Instructions: Your blood work and EKG were normal today. It is unlikely that you have another P.E. As you mentioned, your story is suggestive for physical deconditioning. Please follow up with your primary care doctor within the next 2-3 days. You will need to call to make an appointment. I have attached the test results from today's visit to this packet. Take it with you to your appointment so your doctor can review them. Go to the nearest emergency department if your symptoms worsen or you feel as though you need an additional emergency evaluation. Print Language: GEORGIAN - Post Discharge Activity
[2018-08-10 05:31] VITALS: TEMP 99.2; BMI 40.6
[2018-08-10 06:39] LABS: BASO % 1.3 % (0-2.0); EOS % 4.1 % (0-4.5); HEMATOCRIT 42.3 % (35.4-49); HEMOGLOBIN 13.8 GM/dL (11.7-16.9); MCH 29.7 pg (25.7-33.7); MCHC 32.7 g/dl (32.0-35.9); MEAN CELL VOLUME 90.9 fl (80-96); MEAN PLT VOLUME 8.6 fl (7.5-11.1); MONO % 9.3 % (3.8-10.2); NEUT % 47.3 % (42.8-82.8); PLATELET COUNT 195 K/MM3 (134-434); RBC 4.66 M/mm3 (4.00-5.60); WHITE BLOOD COUNT 7.7 K/mm3 (4.0-10.0)
[2018-08-10 07:13] LABS: ALBUMIN 3.7 g/dl (3.4-5.0); ALK PHOS 149 U/L (45-117); ANION GAP 7 MMOL/L (8-16); BILIRUBIN,TOTAL 0.2 mg/dL (0.2-1); BLOOD UREA NITROGEN 20 mg/dL (7-18); CALCIUM 8.3 mg/dL (8.5-10.1); CHLORIDE 103 mmol/L (98-107); CO2 29 mmol/L (21-32); GLUCOSE,RANDOM 117 mg/dL (74-106); POTASSIUM 3.9 mmol/L (3.5-5.1); SGOT/AST 36 U/L (15-37); SGPT/ALT 44 U/L (13-61); SODIUM 139 mmol/L (136-145); TOT PROT 6.8 g/dl (6.4-8.2)
--- NOTE | 2018-08-10 07:18 | PDOC ---
Attending Attestation - Resident Resident Name: Sondra Segura - ED Attending Attestation I have performed the following: I have examined & evaluated the patient, The case was reviewed & discussed with the resident, I agree w/resident's findings & plan, Exceptions are as noted - HPI HPI: 53 yo M history PE (resolved on f/u CTA), bipolar, CAD, HL, HTN presents with SOB x4 days. Associated with dec exercise tolerance. +Chest tightness and heaviness. Also notes B/L leg swelling. - Physicial Exam PE: GENERAL: Awake, alert, and fully oriented, in no acute distress. Anxious. HEAD: No signs of trauma EYES: PERRLA, EOMI, sclera anicteric, conjunctiva clear ENT: Auricles normal inspection, hearing grossly normal, nares patent, oropharynx clear without exudates. Moist mucosa NECK: Normal ROM, supple, no lymphadenopathy, JVD, or masses LUNGS: Breath sounds equal, clear to auscultation bilaterally. No wheezes, and no crackles HEART: Regular rate and rhythm, normal S1 and S2, no murmurs, rubs or gallops ABDOMEN: Soft, nontender, normoactive bowel sounds. No guarding, no rebound. No masses EXTREMITIES: Normal range of motion, 1+ pitting edema BLE. No clubbing or cyanosis. No cords, erythema. No calf tenderness. NEUROLOGICAL: Cranial nerves II through XII grossly intact. Normal speech, normal gait SKIN: Warm, Dry, normal turgor, no rashes or lesions noted. - Medical Decision Making Pt with history of prior PE, however, based on clinical presentation, PE is lower on differential. Based on the symmetric leg swelling, would r/o CHF. D- dimer sent, as well as basic labs, cardiac panel, BNP. Endorsed to Dr. Braxton at shift change.
--- NOTE | 2018-08-10 07:21 | PDOC ---
*Physical Exam - Vital Signs Last Vital Signs Temp Pulse Resp BP Pulse Ox 99.2 F 85 19 142/67 97 08/10/18 05:00 08/10/18 05:00 08/10/18 05:00 08/10/18 05:00 08/10/18 05:00 - Physical Exam General Appearance: Yes: Appropriately Dressed. No: Apparent Distress HEENT: positive: Normal Voice Respiratory/Chest: positive: Lungs Clear, Normal Breath Sounds. negative: Respiratory Distress, Accessory Muscle Use, Labored Respiration, Rapid RR, Decreased Breath Sounds, Paradoxal Breathing, Crackles, Rales, Rhonchi, Stridor , Wheezing Cardiovascular: positive: Regular Rhythm, Regular Rate Gastrointestinal/Abdominal: positive: Soft. negative: Tender Extremity: positive: Pedal Edema (Trace, bilaterally. ). negative: Calf Tenderness ED Treatment Course - LABORATORY CBC & Chemistry Diagram: 08/10/18 05:59 08/10/18 05:59 - ADDITIONAL ORDERS Additional order review: Laboratory Results 08/10/18 08/10/18 05:59 05:59 D-Dimer < 200 Sodium 139 Potassium 3.9 Chloride 103 Carbon Dioxide 29 Anion Gap 7 L BUN 20 H Creatinine 1.0 Creat Clearance w eGFR > 60 Random Glucose 117 H Calcium 8.3 L Total Bilirubin 0.2 AST 36 ALT 44 Alkaline Phosphatase 149 H Creatine Kinase 432 H Troponin I < 0.02 Total Protein 6.8 Albumin 3.7 08/10/18 05:59 RBC 4.66 MCV 90.9 MCHC 32.7 RDW 15.0 MPV 8.6 Neutrophils % 47.3 Lymphocytes % 38.0 Monocytes % 9.3 Eosinophils % 4.1 Basophils % 1.3 Medical Decision Making - Medical Decision Making 08/10/18 07:19 Received sign out from resident Dr. Segura. In short, pt is a 53 y/o male complaining of shortness of breath, bilateral lower extremity edema, and orthopnea in setting of P.E. in March 2018. D-dimer was negative. Likely admission concerning for CECILIO vs CHF. HEART Score for Major Cardiac Events from [email or web address] on 08/10/2018 RESULT SUMMARY: 3 points Low Score (0-3 points) Risk of MACE of 0.9-1.7%. INPUTS: History > 0 = Slightly suspicious EKG > 0 = Normal Age > 1 = 45-64 Risk factors > 2 = ?3 risk factors or history of atherosclerotic disease Initial troponin > 0 = ?normal limit 08/10/18 07:45 Pt reports he took 80mg of Lasix last night after his noticed bilateral leg swelling after taking a long walk around his neighborhood. Reports he also experienced chest discomfort after he returned to rest; pain was not exertional. Reports continued concern about possibility of another P.E. Discussed the low likelihood of another P.E. as his d-dimer was not elevated and bilateral lower extremity vascular studies were unremarkable for evidence of DVT two days ago. Pt requested a CTA. Discussed why this was not indicated in this situation. Offered to repeat his EKG and troponin. Pt initially said he was in agreement with plan, but he subsequently flagged his nurse and said he would rather go home. Pt believed to be stable to discharge home with outpatient follow up. Suspect symptoms are likely secondary to deconditioning and morbidly obese body habitus. *DC/Admit/Observation/Transfer Diagnosis at time of Disposition: Shortness of breath - Discharge Dispostion Disposition: HOME Condition at time of disposition: Good Decision to Admit order: No - Referrals Referrals: Jacqueline Sylvester MD [Primary Care Provider] - - Patient Instructions Printed Discharge Instructions: DI for Shortness of Breath Additional Instructions: Your blood work and EKG were normal today. It is unlikely that you have another P.E. As you mentioned, your story is suggestive for physical deconditioning. Please follow up with your primary care doctor within the next 2-3 days. You will need to call to make an appointment. I have attached the test results from today's visit to this packet. Take it with you to your appointment so your doctor can review them. Go to the nearest emergency department if your symptoms worsen or you feel as though you need an additional emergency evaluation. Print Language: MONGOLIAN - Post Discharge Activity
[2018-08-10 07:32] VITALS: BP 110/80; PULSE 71
--- NOTE | 2018-08-10 13:05 | EKG ---
Test Reason : Blood Pressure : / mmHG Vent. Rate : 063 BPM Atrial Rate : 063 BPM P-R Int : 170 ms QRS Dur : 084 ms QT Int : 416 ms P-R-T Axes : 012 -12 030 degrees QTc Int : 425 ms NORMAL SINUS RHYTHM NORMAL ECG WHEN COMPARED WITH ECG OF 08-AUG-2018 20:24, NO SIGNIFICANT CHANGE WAS FOUND Confirmed by Martin Huffman MD ([id number]) on 08/10/2018 1:04:59 PM Referred By: Confirmed By:Martin Huffman MD
== END 2018-08-10 08:57 | disposition home or self-care (01) ==
LOC: JER 04:57
DX: R06.02 Shortness of breath (principal); I25.10 Atherosclerotic heart disease of native coronary artery without angina pectoris; I10 Essential (primary) hypertension; E78.5 Hyperlipidemia, unspecified; F31.9 Bipolar disorder, unspecified; Z86.711 Personal history of pulmonary embolism; Z86.718 Personal history of other venous thrombosis and embolism; Z79.01 Long term (current) use of anticoagulants; Z88.8 Allergy status to other drugs, medicaments and biological substances
CPT/HCPCS: 36415; 71045-TC-FY; 80053; 82550; 82553; 83880; 84484; 85025; 85379; 93005; 93010; 99284-25

== ENCOUNTER 2018-09-16 18:43 | Observation (INO) | payer OTHER ==
--- NOTE | 2018-09-16 18:59 | PDOC ---
History of Present Illness - General Stated Complaint: CHEST PAIN Past History - Past Medical History Allergies/Adverse Reactions: Allergies Allergy/AdvReac Type Severity Reaction Status Date / Time ketorolac [From Toradol] Allergy Severe Difficulty Verified 08/10/18 06:22 Breathing tramadol Allergy Severe Difficulty Verified 08/10/18 06:22 Breathing trazodone Allergy Severe Difficulty Verified 08/10/18 06:22 Breathing morphine Allergy Rash Verified 08/10/18 06:22 meperidine HCl [From Demerol] AdvReac Verified 08/10/18 06:22 Home Medications: Ambulatory Orders Diazepam [Valium -] 10 mg PO TID PRN 05/19/13 Sumatriptan [Imitrex] 100 mg PO DAILY PRN 05/19/13 Atorvastatin Ca [Lipitor] 80 mg PO DAILY 08/14/17 Omeprazole 40 mg PO DAILY 08/14/17 Quetiapine Fumarate [Seroquel] 100 mg PO TID 08/14/17 Zolpidem Tartrate [Ambien] 10 mg PO HS PRN 08/14/17 Amlodipine Besylate [Norvasc -] 5 mg PO DAILY #30 tablet 03/23/18 Atenolol [Tenormin -] 25 mg PO BID #60 tablet 03/23/18 Furosemide [Lasix -] 40 mg PO DAILY #30 tablet 03/23/18 Gabapentin 600 mg PO TID #90 tablet 03/23/18 Rivaroxaban [Xarelto -] 15 mg PO BID 21 Days #42 tab 03/23/18 Orphenadrine Citrate 100 mg PO BID 05/31/18 Oxycodone HCl/Acetaminophen [Percocet 10-325 mg Tablet] 1 each PO BID #10 tablet MDD 2 05/31/18 Topiramate [Topiramate ER] 50 mg PO BID 05/31/18 Topiramate [Trokendi Xr] 50 mg PO BID 05/31/18 Cardiac Disorders: Yes (RAPID HEARTBEAT) COPD: No GI Disorders: Yes (GERD) HTN: Yes Hypercholesterolemia: Yes Seizures: Yes (BIPOLAR) - Surgical History Abdominal Surgery: Yes (bilat hernia) Appendectomy: Yes - Immunization History Immunization Up to Date: No - Suicide/Smoking/Psychosocial Hx Smoking Status: No Smoking History: Never smoked Have you smoked in the past 12 months: No Number of Cigarettes Smoked Daily: 0 Hx Alcohol Use: No Drug/Substance Use Hx: No Substance Use Type: None
[2018-09-16] MEDS ORDERED: morphine CARPU-JECT 4 MG/1 ML DISP.SYRIN IVPUSH ONE (20:16)
[2018-09-16] MEDS ORDERED: ONDANSETRON 4 MG/2 ML VIAL IVPUSH ONE (20:16)
[2018-09-16 20:19] LABS: BASO % 0.2 % (0-2.0); EOS % 0.8 % (0-4.5); HEMATOCRIT 45.6 % (35.4-49); HEMOGLOBIN 15.2 GM/dL (11.7-16.9); LYMPH % 31.6 % (8-40); MCH 30.3 pg (25.7-33.7); MCHC 33.5 g/dl (32.0-35.9); MEAN CELL VOLUME 90.4 fl (80-96); MEAN PLT VOLUME 8.7 fl (7.5-11.1); MONO % 9.1 % (3.8-10.2); NEUT % 58.3 % (42.8-82.8); PLATELET COUNT 224 K/MM3 (134-434); RBC 5.04 M/mm3 (4.00-5.60); RDW 14.6 % (11.9-15.9); WHITE BLOOD COUNT 10.8 K/mm3 (4.0-10.0)
[2018-09-16 20:32] LABS: INR 1.52 (0.83-1.09)
[2018-09-16 20:34] LABS: ACTIVATED PTT 33.8 SECONDS (25.2-36.5)
[2018-09-16] MEDS ORDERED: ONDANSETRON 4 MG/2 ML VIAL ONE (20:54)
--- NOTE | 2018-09-16 21:08 | PDOC ---
Attending Attestation - Resident Resident Name: Linnea Catalan - ED Attending Attestation I have performed the following: I have examined & evaluated the patient, The case was reviewed & discussed with the resident, I agree w/resident's findings & plan - HPI HPI: 09/16/18 21:04 53-year-old male with history of multiple medical problems including obesity, hypertension, post-op PE diagnosed in March on xarelto, reportedly wnl cath 3.5y ago scheduled for nuclear stress next week with Dr. Bryan, presents now with two episodes (one last night, one today) of sharp L chest pain radiating to his L arm, associated with diaphoresis and shortness of breath. + new BARRIENTOS while walking with his brother today. noted b/l leg swelling last week resolved with lasix, reportedly baseline for him. reports compliance with his xarelto. - Physicial Exam PE: 09/16/18 21:06 Vital signs within normal limits including heart rate and O2 sat Obese male seated comfortably in stretcher, speaking full sentences Heart is regular, lungs are clear Right leg is larger than left, but nontender and baseline per patient - Medical Decision Making 09/16/18 21:06 53-year-old male with history of PE and several risk factors for ACS presents with concerning chest pain and dyspnea 2 episodes since last night, asymptomatic now with normal vital signs. Will need ACS workup as well as rule out of progression of prior PE or new PE. Labs, EKG, chest x-ray CTA chest to evaluate PE Telemetry Admission for further evaluation and management Heart Score/ECG Review - History History: Moderately suspicious - Electrocardiogram EKG: Normal - Age Age: 45-65 - Risk Factors Based on the list above the patient has:: >/=3 risk factors or Hx atherosclerotic disease - Troponin Troponin: </= normal limit - Score Heart Score - Total: 4 #1 ECG reviewed & interpreted by me at: 19:09 General ECG Interpretation: Sinus Rhythm, Normal Rate (60), Normal Intervals ( qtc 400), No acute ischemic changes Compared to previous ECG there are: No significant change
--- NOTE | 2018-09-16 21:23 | PDOC ---
History of Present Illness - General Chief Complaint: Shortness of Breath Stated Complaint: CHEST PAIN Time Seen by Provider: 09/16/18 19:39 - History of Present Illness Initial Comments: 53yo M with PMH of angina, PE, HTN, HLD, obesity, bipolar disorder presenting with chest pain and shortness of breath. Patient reports that he was under significant stress last night when he felt sudden chest pain rated 8/10 that he described as stabbing and getting punched in the chest. The pain radiates up his clavicle and down his arm which feels numb. He says he didnt feel good and took a nitroglycerin. Patient also endorses diaphoresis and nausea, but no vomiting. No personal history of NM or smoking. Father had an NM in his 80s. Patient also reports foot swelling for which he took furosemide with relief and dyspnea on exertion for the past three or four days. No history of heart failure , asthma, or COPD. 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 His PE was in March 2018 for which he reports taking Xarelto as instructed, however did not take it for five days in the past two weeks for a dental procedure. Patient reports that he has had a soft plaque in his LAD for over twenty years. No fevers, but endorses chills. Past History - Past Medical History Allergies/Adverse Reactions: Allergies Allergy/AdvReac Type Severity Reaction Status Date / Time ketorolac [From Toradol] Allergy Severe Difficulty Verified 09/16/18 19:03 Breathing tramadol Allergy Severe Difficulty Verified 09/16/18 19:03 Breathing trazodone Allergy Severe Difficulty Verified 09/16/18 19:03 Breathing morphine Allergy Rash Verified 09/16/18 19:03 meperidine HCl [From Demerol] AdvReac Verified 09/16/18 19:03 Home Medications: Ambulatory Orders Diazepam [Valium -] 10 mg PO TID PRN 05/19/13 Sumatriptan [Imitrex] 100 mg PO DAILY PRN 05/19/13 Atorvastatin Ca [Lipitor] 80 mg PO DAILY 08/14/17 Omeprazole 40 mg PO DAILY 08/14/17 Quetiapine Fumarate [Seroquel] 100 mg PO TID 08/14/17 Zolpidem Tartrate [Ambien] 10 mg PO HS PRN 08/14/17 Atenolol [Tenormin -] 25 mg PO BID #60 tablet 03/23/18 Furosemide [Lasix -] 40 mg PO DAILY #30 tablet 03/23/18 Gabapentin 600 mg PO TID #90 tablet 03/23/18 Orphenadrine Citrate [Orphenadrine Citrate ER] 100 mg PO BID 05/31/18 Topiramate [Topiramate ER] 50 mg PO TID 05/31/18 Oxycodone HCl/Acetaminophen [Percocet 10-325 mg Tablet] 1 each PO TID MDD 2 06/26 Rivaroxaban [Xarelto -] 20 mg PO DAILY 09/16/18 Cardiac Disorders: Yes (RAPID HEARTBEAT) COPD: No GI Disorders: Yes (GERD) HTN: Yes Hypercholesterolemia: Yes Seizures: Yes (BIPOLAR) - Surgical History Abdominal Surgery: Yes (bilat hernia) Appendectomy: Yes - Immunization History Immunization Up to Date: No - Suicide/Smoking/Psychosocial Hx Smoking Status: No Smoking History: Never smoked Have you smoked in the past 12 months: No Number of Cigarettes Smoked Daily: 0 Hx Alcohol Use: No Drug/Substance Use Hx: No Substance Use Type: None Review of Systems - Review of Systems Comments:: Constitutional: no fever, +chills HEENT: no throat pain, +dysphagia Cardiovascular: +chest pain, no palpitations Respiratory: +cough, +shortness of breath Gastrointestinal: no abdominal pain, +nausea, no vomiting, +diarrhea Genitourinary: no dysuria, no frequency Musculoskeletal: +myalgia, +arthralgia Skin: no rash, no itching Neurologic: +headache, no dizziness *Physical Exam - Vital Signs Last Vital Signs Temp Pulse Resp BP Pulse Ox 98.5 F 75 20 129/89 98 09/16/18 19:03 09/16/18 19:03 09/16/18 19:03 09/16/18 19:03 09/16/18 19:03 - Physical Exam Comments: General: Awake, alert, and fully oriented, in no acute distress Head: No signs of trauma Eyes: EOMI, sclera anicteric ENT: Moist mucus membranes Neck: Normal ROM, supple Lungs: Lungs clear, Normal breath sounds Cardio: Regular rhythm, S1 and S2 present Abdomen: Soft, nontender. No guarding, no rebound, no masses Extremities: Normal range of motion, Distal pulses present SKIN: Warm, Dry, normal turgor Neurologic: Cranial nerves II through XII grossly intact. Normal speech ED Treatment Course - LABORATORY CBC & Chemistry Diagram: 09/16/18 19:57 09/16/18 22:00 - ADDITIONAL ORDERS Additional order review: Laboratory Results 09/16/18 09/16/18 19:57 19:57 PT with INR 18.00 H INR 1.52 H PTT (Actin FS) 33.8 Sodium Cancelled Potassium Cancelled Chloride Cancelled Carbon Dioxide Cancelled Anion Gap Cancelled BUN Cancelled Creatinine Cancelled Creat Clearance w eGFR Cancelled Random Glucose Cancelled Calcium Cancelled Total Bilirubin Cancelled AST Cancelled ALT Cancelled Alkaline Phosphatase Cancelled Troponin I Cancelled B-Natriuretic Peptide Cancelled Total Protein Cancelled Albumin Cancelled 09/16/18 19:57 RBC 5.04 MCV 90.4 MCHC 33.5 RDW 14.6 MPV 8.7 Neutrophils % 58.3 D Lymphocytes % 31.6 Monocytes % 9.1 Eosinophils % 0.8 D Basophils % 0.2 - RADIOLOGY Radiology Studies Ordered: Category Date Time Status CHEST CTA [CT] Stat CT Scan 09/16/18 20:18 Ordered CHEST X-RAY PORTABLE* [RAD] Stat Radiology 09/16/18 19:52 Taken - Medications Given in the ED: ED Medications Discontinued Medications Generic Name Dose Route Start Last Admin Trade Name Glory PRN Reason Stop Dose Admin Fentanyl 75 mcg 09/16/18 20:37 09/16/18 21:04 Sublimaze Injection - IVPUSH 09/16/18 20:38 75 mcg ONCE ONE Administration Morphine Sulfate 4 mg 09/16/18 20:16 09/16/18 21:04 Morphine Injection - IVPUSH 09/16/18 20:17 Not Given ONCE ONE Ondansetron HCl 4 mg 09/16/18 20:16 09/16/18 21:04 Zofran Injection IVPUSH 09/16/18 20:17 4 mg ONCE ONE Administration Medical Decision Making - Medical Decision Making 53yo M with PMH of angina, PE, HTN, HLD, obesity, bipolar disorder presenting with chest pain and shortness of breath. 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 Russo who accepted patient for admission 09/17/18 00:10 CTA negative for PE 09/17/18 03:20 *DC/Admit/Observation/Transfer Diagnosis at time of Disposition: Chest pain - Discharge Dispostion Condition at time of disposition: Guarded Decision to Admit order: Yes - Referrals - Patient Instructions - Post Discharge Activity
[2018-09-16] MEDS ORDERED: TOPIRAMATE 25 MG TABLET (FP) PO ONE (22:06)
[2018-09-16] MEDS ORDERED: TOPIRAMATE 25 MG TABLET (FP) ONE (22:19)
[2018-09-16 22:33] LABS: ALBUMIN 4.6 g/dl (3.4-5.0); ALK PHOS 139 U/L (45-117); ANION GAP 9 MMOL/L (8-16); BILIRUBIN,TOTAL 0.5 mg/dL (0.2-1); BLOOD UREA NITROGEN 14 mg/dL (7-18); CALCIUM 8.6 mg/dL (8.5-10.1); CHLORIDE 105 mmol/L (98-107); CO2 25 mmol/L (21-32); CREATININE 0.9 mg/dL (0.55-1.3); GLUCOSE,RANDOM 94 mg/dL (74-106); N-TERMINAL BNP 85.1 pg/ml (5-125); POTASSIUM 4.2 mmol/L (3.5-5.1); SGOT/AST 34 U/L (15-37); SGPT/ALT 51 U/L (13-61); SODIUM 139 mmol/L (136-145); TOT PROT 8.1 g/dl (6.4-8.2)
[2018-09-17] MEDS ORDERED: ATORVASTATIN CA 40 MG TABLET (FP) PO ONE (03:25)
[2018-09-17] MEDS ORDERED: diazePAM 5 MG TABLET PO ONE (03:25)
[2018-09-17] MEDS ORDERED: diazePAM 5 MG TABLET ONE (03:57)
[2018-09-17] MEDS ORDERED: ATORVASTATIN CA 40 MG TABLET (FP) ONE (03:57)
[2018-09-17] MEDS ORDERED: ZOLPIDEM TARTRATE 5 MG TABLET PO PRN (06:16)
[2018-09-17] MEDS ORDERED: ACETAMINOPHEN 325 MG TABLET (FP) PO PRN (06:59)
--- NOTE | 2018-09-17 07:41 | EKG ---
Test Reason : Blood Pressure : / mmHG Vent. Rate : 060 BPM Atrial Rate : 060 BPM P-R Int : 166 ms QRS Dur : 080 ms QT Int : 400 ms P-R-T Axes : 013 -20 044 degrees QTc Int : 400 ms NORMAL SINUS RHYTHM NORMAL ECG WHEN COMPARED WITH ECG OF 10-AUG-2018 08:19, NO SIGNIFICANT CHANGE WAS FOUND Confirmed by BENSON MIDDLETON MD ([id number]) on 09/17/2018 7:40:38 AM Referred By: Confirmed By:BENSON MIDDLETON MD
--- NOTE | 2018-09-17 08:57 | HP ---
Admitting History and Physical - Primary Care Physician PCP: Juan Sylvester - Admission Chief Complaint: chest pain History of Present Illness: woke up with sharp stabbing retrosternal chest pain yesterday, resolved with sl NTG and went back to sleep. During the day got diaphoretic after walking a bit and pain recurred, so he came to er for further evaluation. exertional dyspnea is chronic, not in shape, obese. know soft plaque in LAD based on card.cath done 3.5 years ago as per pt, no stents. 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 2016 left meniscus [id number], left knee surgery with staph infection 2006, left knee meniscus tear repair with quad. sg - Smoking History Smoking history: Never smoked Have you smoked in the past 12 months: No Aproximately how many cigarettes per day: 0 - Alcohol/Substance Use Hx Alcohol Use: No History of Substance Use: reports: None - Social History ADL: Independent History of Recent Travel: No Home Medications - Allergies Allergies/Adverse Reactions: Allergies Allergy/AdvReac Type Severity Reaction Status Date / Time ketorolac [From Toradol] Allergy Severe Difficulty Verified 09/16/18 19:03 Breathing tramadol Allergy Severe Difficulty Verified 09/16/18 19:03 Breathing trazodone Allergy Severe Difficulty Verified 09/16/18 19:03 Breathing morphine Allergy Rash Verified 09/16/18 19:03 meperidine HCl [From Demerol] AdvReac Verified 09/16/18 19:03 - Home Medications Home Medications: Ambulatory Orders Diazepam [Valium -] 10 mg PO TID PRN 05/19/13 Sumatriptan [Imitrex] 100 mg PO DAILY PRN 05/19/13 Atorvastatin Ca [Lipitor] 80 mg PO DAILY 08/14/17 Omeprazole 40 mg PO DAILY 08/14/17 Quetiapine Fumarate [Seroquel] 100 mg PO TID 08/14/17 Zolpidem Tartrate [Ambien] 10 mg PO HS PRN 08/14/17 Atenolol [Tenormin -] 25 mg PO BID #60 tablet 03/23/18 Furosemide [Lasix -] 40 mg PO DAILY #30 tablet 03/23/18 Gabapentin 600 mg PO TID #90 tablet 03/23/18 Orphenadrine Citrate [Orphenadrine Citrate ER] 100 mg PO BID 05/31/18 Topiramate [Topiramate ER] 50 mg PO TID 05/31/18 Oxycodone HCl/Acetaminophen [Percocet 10-325 mg Tablet] 1 each PO TID MDD 2 06/26 Rivaroxaban [Xarelto -] 20 mg PO DAILY 09/16/18 Family Disease History - Family Disease History Family Disease History: Heart Disease: Father ( at 91), CA: Mother (ovarian) Review of Systems - Review of Systems Constitutional: reports: No Symptoms Eyes: reports: No Symptoms HENT: reports: No Symptoms Neck: reports: Other (chronic pain) Cardiovascular: reports: Chest Pain (as noted) Respiratory: reports: Exercise Intolerance, SOB on Exertion. denies: Cough, Hemoptysis, Orthopnea Gastrointestinal: reports: No Symptoms Genitourinary: reports: No Symptoms Musculoskeletal: reports: Back Pain, Joint Pain (chronic) Neurological: reports: No Symptoms Endocrine: reports: No Symptoms Hematology/Lymphatic: reports: No Symptoms Psychiatric: reports: No Symptoms (bipolar controlled, in good spirits) Physical Examination Vital Signs: Vital Signs Temperature 97.7 F 09/17/18 05:34 Pulse Rate 65 09/17/18 05:34 Respiratory Rate 17 09/17/18 05:34 Blood Pressure 111/60 09/17/18 05:34 O2 Sat by Pulse Oximetry (%) 97 09/17/18 05:34 Constitutional: Yes: No Distress, Obese Eyes: Yes: Conjunctiva Clear HENT: Yes: Atraumatic, Normocephalic Neck: Yes: Trachea Midline Cardiovascular: Yes: Regular Rate and Rhythm. No: Tachycardia, Murmur Respiratory: Yes: Regular, CTA Bilaterally Gastrointestinal: Yes: Normal Bowel Sounds, Soft, Abdomen, Obese Extremities: Yes: WNL Edema: No Peripheral Pulses WNL: Yes Neurological: Yes: WNL ...Motor Strength: WNL Psychiatric: Yes: WNL Labs: CBC, BMP 09/16/18 19:57 09/16/18 22:00 first set of troponin, cpk negative Imaging - Results Chest X-ray: Report Reviewed Cat Scan: Report Reviewed (CTA negative for pulmonary embolism) EKG: Report Reviewed (normal ekg) Problem List - Problems (1) Obesity (BMI 30-39.9) Code(s): E66.9 - OBESITY, UNSPECIFIED (2) Chest pain Code(s): R07.9 - CHEST PAIN, UNSPECIFIED Qualifiers: Chest pain type: unspecified Qualified Code(s): R07.9 - Chest pain, unspecified (3) Pulmonary embolism Code(s): I26.99 - OTHER PULMONARY EMBOLISM WITHOUT ACUTE COR PULMONALE Qualifiers: Chronicity: unspecified (4) Hyperlipidemia Code(s): E78.5 - HYPERLIPIDEMIA, UNSPECIFIED Qualifiers: Hyperlipidemia type: unspecified Qualified Code(s): E78.5 - Hyperlipidemia , unspecified (5) Hypertension Code(s): I10 - ESSENTIAL (PRIMARY) HYPERTENSION Qualifiers: Hypertension type: essential hypertension Qualified Code(s): I10 - Essential (primary) hypertension Assessment/Plan r/o CAD serial cardiac enzymes echo stress test cardiology follow up requested
[2018-09-17] MEDS ORDERED: TOPIRAMATE 50 MG PO SCH (10:00)
[2018-09-17] MEDS ORDERED: ORPHENADRINE CITRATE PO SCH (10:00)
[2018-09-17] MEDS ORDERED: QUEtiapine FUMARATE 100 MG TABLET (FP) PO SCH (10:00)
--- NOTE | 2018-09-17 10:21 | ECHO ---
Name: SOTO EZRA Exam:Adult Echocardiogram Study Date: 09/17/2018 08:26 AM Age: 53 yrs Reason For Study: LVSF Height: 71 in Weight: 280 lb BSA: 2.4 m2 MMode/2D Measurements & Calculations IVSd: 0.96 cm Ao root diam: 3.0 cm LVIDd: 4.8 cm LA dimension: 3.7 cm LVIDs: 3.4 cm LVPWd: 0.90 cm EDV(Teich): 109.2 ml ESV(Teich): 48.7 ml Doppler Measurements & Calculations MV E max humberto: 54.8 cm/sec TR max humberto: 210.4 cm/sec MV A max humberto: 67.1 cm/sec TR max P.7 mmHg MV E/A: 0.82 MV dec time: 0.23 sec Med Peak E' Humberto: 5.1 cm/sec Med E/e': 10.7 Lat Peak E' Humberto: 9.0 cm/sec Lat E/e': 6.1 Left Ventricle Ejection Fraction = 50-55%. The transmitral spectral Doppler flow pattern is suggestive of impaired L V relaxation. Right Ventricle The right ventricle is grossly normal size. The right ventricular systolic function is grossly normal . Atria Normal left and right atrial size and function. Mitral Valve The mitral valve is grossly normal. There is no mitral valve stenosis. There is trace to mild mitral regurgitation. Tricuspid Valve The tricuspid valve is normal in structure and function. There is mild tricuspid regurgitation. Aortic Valve The aortic valve opens well. No hemodynamically significant valvular aortic stenosis. No aortic regur gitation is present. Pulmonic Valve The pulmonic valve is not well seen, but is grossly normal. There is no pulmonic valvular stenosis. T here is no pulmonic valvular regurgitation. Great Vessels The aortic root is normal size. Pericardium/Pleura There is no pericardial effusion. Interpretation Summary Ejection Fraction = 50-55%. The transmitral spectral Doppler flow pattern is suggestive of impaired LV relaxation. There is trace to mild mitral regurgitation. There is mild tricuspid regurgitation. There is no pericardial effusion. MD Zuñiga *Timoteo 09/17/2018 10:21 AM
[2018-09-17] MEDS: FUROSEMIDE 40 MG TABLET (FP) PO SCH (11:32)
[2018-09-17] MEDS: PANTOPRAZOLE 40 MG TABLET (FP) PO SCH (11:32)
[2018-09-17] MEDS: ATENOLOL 25 MG TABLET (FP) PO SCH ×2 (11:32→23:07)
[2018-09-17] MEDS: GABAPENTIN 300 MG CAPSULE (FP) PO SCH ×2 (14:21→23:07)
[2018-09-17] MEDS: QUEtiapine FUMARATE 100 MG TABLET (FP) PO SCH ×2 (14:21→23:07)
[2018-09-17 15:42] VITALS: BMI 40.1
--- NOTE | 2018-09-17 16:34 | CON.CARD ---
Consult Consult Specialty:: Cardiology Referred by:: Jacqueline Martinez MD Reason for Consultation:: Chest pain - History of Present Illness Chief Complaint: Chest pain History of Present Illness: Patient is a 53 year old male with underlying history of CAD (previous cardiac catheterization and followed by Max Mcfarlane MD at [facility]), hypertension, bipolar disorder, depression, multiple joint injuries and surgeries, migraines and PTE on Xarelto who presents with sharp, stabbing atypical left sided chest pain, dyspnea and palpitations worse with increasing anxiety, denies worsening dyspnea on exertion, near or true syncope, orthopnea, PND or LE edema, ruled out for UT. 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 Cardio/Vascular: Yes: HTN, Hyperlipdemia Pulmonary: Yes: Pulmonary Embolus () Psych: Yes: Bipolar, Depression Musculoskeletal: Yes: Chronic low back pain, Osteoarthritis - Past Surgical History Past Surgical History: Yes: Appendectomy, Hernia Repair (bilateral) - Alcohol/Substance Use Hx Alcohol Use: No History of Substance Use: reports: None - Smoking History Smoking history: Never smoked Have you smoked in the past 12 months: No Aproximately how many cigarettes per day: 0 - Social History ADL: Independent History of Recent Travel: No Home Medications - Allergies Allergies/Adverse Reactions: Allergies Allergy/AdvReac Type Severity Reaction Status Date / Time ketorolac [From Toradol] Allergy Severe Difficulty Verified 09/16/18 19:03 Breathing tramadol Allergy Severe Difficulty Verified 09/16/18 19:03 Breathing trazodone Allergy Severe Difficulty Verified 09/16/18 19:03 Breathing morphine Allergy Rash Verified 09/16/18 19:03 meperidine HCl [From Demerol] AdvReac Verified 09/16/18 19:03 - Home Medications Home Medications: Ambulatory Orders Diazepam [Valium -] 10 mg PO TID PRN 05/19/13 Sumatriptan [Imitrex] 100 mg PO DAILY PRN 05/19/13 Atorvastatin Ca [Lipitor] 80 mg PO DAILY 08/14/17 Omeprazole 40 mg PO DAILY 08/14/17 Quetiapine Fumarate [Seroquel] 100 mg PO TID 08/14/17 Zolpidem Tartrate [Ambien] 10 mg PO HS PRN 08/14/17 Atenolol [Tenormin -] 25 mg PO BID #60 tablet 03/23/18 Furosemide [Lasix -] 40 mg PO DAILY #30 tablet 03/23/18 Gabapentin 600 mg PO TID #90 tablet 03/23/18 Orphenadrine Citrate [Orphenadrine Citrate ER] 100 mg PO BID 05/31/18 Topiramate [Topiramate ER] 50 mg PO TID 05/31/18 Oxycodone HCl/Acetaminophen [Percocet 10-325 mg Tablet] 1 each PO TID MDD 2 06/26 Rivaroxaban [Xarelto -] 20 mg PO DAILY 09/16/18 Family Disease History - Family Disease History Family Disease History: Heart Disease: Father ( at 91), [place]: Mother (ovarian) Review of Systems - Review of Systems Cardiovascular: reports: Chest Pain, Palpitations, Shortness of Breath Vital Signs: Vital Signs Temperature 98 F 09/17/18 15:37 Pulse Rate 72 09/17/18 15:37 Respiratory Rate 18 09/17/18 15:37 Blood Pressure 110/74 09/17/18 15:37 O2 Sat by Pulse Oximetry (%) 95 09/17/18 12:57 Constitutional: Yes: No Distress, Calm Neck: Yes: Supple Respiratory: Yes: Regular, CTA Bilaterally Gastrointestinal: Yes: Normal Bowel Sounds, Soft, Abdomen, Obese Cardiovascular: Yes: Regular Rate and Rhythm JVD: No Carotid Bruit: No Heart Sounds: Yes: S1, S2 Edema: No - Other Data Labs, Other Data: CBC, BMP 09/16/18 19:57 09/16/18 22:00 INR, PTT INR 1.52 (0.83-1.09) H 09/16/18 19:57 Troponin, BNP 09/16/18 09/16/18 09/16/18 19:57 20:52 20:52 Troponin I Cancelled Cancelled B-Natriuretic Peptide Cancelled Cancelled 09/16/18 09/17/18 22:00 09:05 Troponin I < 0.02 < 0.02 B-Natriuretic Peptide 85.1 Troponin, BNP 09/16/18 09/16/18 09/16/18 19:57 20:52 20:52 Troponin I Cancelled Cancelled B-Natriuretic Peptide Cancelled Cancelled 11/08/18 11/09/18 22:00 09:05 Troponin I < 0.02 < 0.02 B-Natriuretic Peptide 85.1 NSR @ [address]-T changes Ejection Fraction %: LVEF > or = 40 % Imaging - Results Chest X-ray: Report Reviewed (NAD) Cat Scan: Report Reviewed (Neg for PE) Problem List - Problems (1) Chest pain Code(s): R07.9 - CHEST PAIN, UNSPECIFIED Qualifiers: Chest pain type: unspecified Qualified Code(s): R07.9 - Chest pain, unspecified (2) Pulmonary embolism Code(s): I26.99 - OTHER PULMONARY EMBOLISM WITHOUT ACUTE COR PULMONALE Qualifiers: Chronicity: unspecified (3) Hyperlipidemia Code(s): E78.5 - HYPERLIPIDEMIA, UNSPECIFIED Qualifiers: Hyperlipidemia type: pure hypercholesterolemia Qualified Code(s): E78.00 - Pure hypercholesterolemia, unspecified; E78.0 - Pure hypercholesterolemia (4) Hypertension Code(s): I10 - ESSENTIAL (PRIMARY) HYPERTENSION Qualifiers: Hypertension type: essential hypertension Qualified Code(s): I10 - Essential (primary) hypertension (5) Coronary artery disease Code(s): I25.10 - ATHSCL HEART DISEASE OF [place] CORONARY ARTERY W/O ANG PCTRS Qualifiers: Coronary Disease-Associated Artery/Lesion type: [place] artery [employer] vs. transplanted heart: [place] heart Associated angina: without angina Qualified Code(s): I25.10 - Atherosclerotic heart disease of [place] coronary artery without angina pectoris (6) Diastolic dysfunction Code(s): I51.9 - HEART DISEASE, UNSPECIFIED Assessment/Plan 09/17/2018 Low normal LVEF 50-55%, abnormal LV compliance, mild TR, normal RV size and fxn 1. Atypical chest pain 2. Pulmonary embolism on NOAC 3. Non-obstructive CAD, angina pectoris 4. Hypertension 5. Hypercholesterolemia 6. Diastolic dysfunction 7. Bipolar/depression 8. Degenerative joint disease and injuries PLAN: 1. Ruled out for UT, patient has appointment for 2 day stress protocol next Thursday 2. Continue Lipitor 80 qd, Atenolol 25 bid, Xarelto 20 qd 3. March d/c with f/u in office [phone]
[2018-09-17] MEDS: RIVAROXABAN 20 MG TABLET PO SCH (17:26)
[2018-09-17] MEDS: oxyCODONE HCL 5 MG TABLET PO PRN (17:26)
[2018-09-17] MEDS ORDERED: ATORVASTATIN CA 80 MG TABLET (FP) PO SCH (22:00)
[2018-09-17] MEDS ORDERED: QUEtiapine FUMARATE 50 MG TABLET ONE (22:56)
[2018-09-17] MEDS ORDERED: PT OWN MED DRAWER 7, Y5N ONE (22:57)
[2018-09-17] MEDS: TOPIRAMATE 25 MG TABLET (FP) PO SCH (23:05)
[2018-09-17] MEDS: diazePAM 5 MG TABLET PO PRN (23:07)
[2018-09-18] MEDS ORDERED: QUEtiapine FUMARATE 50 MG TABLET ONE ×2 (05:35→13:50)
[2018-09-18] MEDS: QUEtiapine FUMARATE 100 MG TABLET (FP) PO SCH ×3 (05:47→14:28)
[2018-09-18] MEDS: TOPIRAMATE 25 MG TABLET (FP) PO SCH ×3 (05:47→14:27)
[2018-09-18] MEDS: GABAPENTIN 300 MG CAPSULE (FP) PO SCH ×2 (05:47→14:26)
--- NOTE | 2018-09-18 07:04 | DS ---
Physical Examination Vital Signs: Vital Signs Temperature 98.2 F 09/18/18 01:09 Pulse Rate 74 09/18/18 01:09 Respiratory Rate 18 09/18/18 01:09 Blood Pressure 115/75 09/18/18 01:09 O2 Sat by Pulse Oximetry (%) 98 09/17/18 21:00 Constitutional: Yes: No Distress, Obese Eyes: Yes: EOM Intact HENT: Yes: Normocephalic Neck: Yes: Trachea Midline Cardiovascular: Yes: Regular Rate and Rhythm Respiratory: Yes: CTA Bilaterally Gastrointestinal: Yes: Normal Bowel Sounds, Soft Edema: No Peripheral Pulses WNL: Yes Integumentary: Yes: WNL Neurological: Yes: WNL Labs: CBC, BMP 09/16/18 19:57 09/16/18 22:00 Discharge Summary Reason For Visit: SHORTNESS OF BREATH,CHEST PAIN Current Active Problems Chest pain (Acute) Coronary artery disease (Acute) Diastolic dysfunction (Acute) Obesity (BMI 30-39.9) (Acute) Hospital Course: admitted for chest pain, serial cardiac enzymes were negative, echo reviewed unremarkable. pain resolved, vitals and physical exam is normal. seen by cardiology. medically stable to nm home. pt has appointment for stress test next week as outpt. Condition: Fair - Instructions Referrals: Konrad Bryan MD [Staff Physician] - Disposition: HOME - Home Medications Comprehensive Discharge Medication List: Ambulatory Orders Diazepam [Valium -] 10 mg PO TID PRN 05/19/13 Sumatriptan [Imitrex] 100 mg PO DAILY PRN 05/19/13 Atorvastatin Ca [Lipitor] 80 mg PO DAILY 08/14/17 Omeprazole 40 mg PO DAILY 08/14/17 Quetiapine Fumarate [Seroquel] 100 mg PO TID 08/14/17 Zolpidem Tartrate [Ambien] 10 mg PO HS PRN 08/14/17 Atenolol [Tenormin -] 25 mg PO BID #60 tablet 03/23/18 Furosemide [Lasix -] 40 mg PO DAILY #30 tablet 03/23/18 Gabapentin 600 mg PO TID #90 tablet 03/23/18 Orphenadrine Citrate [Orphenadrine Citrate ER] 100 mg PO BID 05/31/18 Topiramate [Topiramate ER] 50 mg PO TID 05/31/18 Oxycodone HCl/Acetaminophen [Percocet 10-325 mg Tablet] 1 each PO TID MDD 2 06/26 Rivaroxaban [Xarelto -] 20 mg PO DAILY 09/16/18 Topiramate [Topamax -] 50 mg PO TID tablet 09/18/18
[2018-09-18 07:40] VITALS: TEMP 97.9
[2018-09-18] MEDS: oxyCODONE HCL 5 MG TABLET PO PRN (08:02)
[2018-09-18] MEDS: diazePAM 5 MG TABLET PO PRN (08:04)
--- NOTE | 2018-09-18 09:21 | PN ---
Progress Note, Physician Chief Complaint: Events noted Not in distress except for neck and back pain History of Present Illness: Patient was seen and examined. Awake and alert. Chart was reviewed Denies chest pain, SOB or palpitations - Current Medication List Current Medications: Active Medications Acetaminophen (Tylenol -) 325 mg PO Q8H PRN PRN Reason: PAIN LEVEL 7 - 10 Last Admin: 09/17/18 17:27 Dose: 325 mg Atenolol (Tenormin -) 25 mg PO BID [facility] Last Admin: 09/17/18 23:07 Dose: 25 mg Atorvastatin Calcium (Lipitor -) 80 mg PO HS [facility] Last Admin: 09/17/18 23:05 Dose: 80 mg Diazepam (Valium -) 10 mg PO TID PRN PRN Reason: MUSCLE SPASMS Last Admin: 09/18/18 08:04 Dose: 10 mg Furosemide (Lasix -) 40 mg PO DAILY [facility] Last Admin: 09/17/18 11:32 Dose: 40 mg Gabapentin (Neurontin -) 600 mg PO TID [facility] Last Admin: 09/18/18 05:47 Dose: 600 mg Non-Formulary Medication (Orphenadrine Citrate [Orphenadrine Citrate Er]) 100 mg PO BID [facility] Oxycodone HCl (Roxicodone -) 10 mg PO Q8H PRN PRN Reason: PAIN LEVEL 7 - 10 Last Admin: 09/18/18 08:02 Dose: 10 mg Pantoprazole Sodium (Protonix -) 40 mg PO DAILY [facility] Last Admin: 09/17/18 11:32 Dose: 40 mg Quetiapine Fumarate (Seroquel -) 100 mg PO TID [facility] Last Admin: 09/18/18 05:47 Dose: 100 mg Rivaroxaban (Xarelto -) 20 mg PO DAILY@1800 [facility] Last Admin: 09/17/18 17:26 Dose: 20 mg Topiramate (Topamax -) 50 mg PO TID [facility] Last Admin: 09/18/18 05:47 Dose: 50 mg Zolpidem Tartrate (Ambien -) 10 mg PO HS PRN PRN Reason: INSOMNIA Last Admin: 09/17/18 23:08 Dose: 10 mg - Objective Vital Signs: Vital Signs Temperature 97.9 F 09/18/18 06:00 Pulse Rate 84 09/18/18 06:00 Respiratory Rate 18 09/18/18 06:00 Blood Pressure 119/88 09/18/18 06:00 O2 Sat by Pulse Oximetry (%) 98 09/17/18 21:00 Eyes: Yes: PERRL HENT: Yes: Atraumatic Neck: Yes: Supple Cardiovascular: Yes: Regular Rate and Rhythm, S1, S2 Respiratory: Yes: CTA Bilaterally Gastrointestinal: Yes: Normal Bowel Sounds, Soft. No: Tenderness Edema: No Problem List - Problems (1) Chest pain Code(s): R07.9 - CHEST PAIN, UNSPECIFIED Qualifiers: Chest pain type: unspecified Qualified Code(s): R07.9 - Chest pain, unspecified (2) Coronary artery disease Code(s): I25.10 - ATHSCL HEART DISEASE OF [place] CORONARY ARTERY W/O ANG PCTRS Qualifiers: Coronary Disease-Associated Artery/Lesion type: [place] artery [place] vs. transplanted heart: [place] heart Associated angina: without angina Qualified Code(s): I25.10 - Atherosclerotic heart disease of [place] coronary artery without angina pectoris (3) Diastolic dysfunction Code(s): I51.9 - HEART DISEASE, UNSPECIFIED (4) Pulmonary embolism Code(s): I26.99 - OTHER PULMONARY EMBOLISM WITHOUT ACUTE COR PULMONALE Qualifiers: Chronicity: unspecified (5) Hyperlipidemia Code(s): E78.5 - HYPERLIPIDEMIA, UNSPECIFIED Qualifiers: Hyperlipidemia type: pure hypercholesterolemia Qualified Code(s): E78.00 - Pure hypercholesterolemia, unspecified; E78.0 - Pure hypercholesterolemia (6) Hypertension Code(s): I10 - ESSENTIAL (PRIMARY) HYPERTENSION Qualifiers: Hypertension type: essential hypertension Qualified Code(s): I10 - Essential (primary) hypertension Assessment/Plan 1. Atypical chest pain 2. Pulmonary embolism on NOAC 3. Non-obstructive CAD, angina pectoris 4. Hypertension 5. Hypercholesterolemia 6. Diastolic dysfunction 7. Bipolar/depression 8. Degenerative joint disease and injuries PLAN: 1. Patient has appointment for 2 day stress protocol next Thursday in our office 2. Continue Lipitor 80 QD, Atenolol 25 BID and Xarelto 20 QD 3. Discharge home and follow up with Dr. Konrad Bryan in the office Darren Pfeiffer MD
[2018-09-18] MEDS: FUROSEMIDE 40 MG TABLET (FP) PO SCH (11:09)
[2018-09-18] MEDS: ATENOLOL 25 MG TABLET (FP) PO SCH (11:09)
[2018-09-18] MEDS: PANTOPRAZOLE 40 MG TABLET (FP) PO SCH (11:09)
[2018-09-18] MEDS: RIVAROXABAN 20 MG TABLET PO SCH (17:38)
[2018-09-18 18:03] VITALS: BP 107/65; PULSE 67
== END 2018-09-18 18:06 | disposition home or self-care (01) ==
LOC: JER 18:43 → JERBED 09-17 01:37 → J4W 09-17 15:00
PROVIDERS: ADMIT Internal Medicine; ATTEND Internal Medicine
PROC: 3E033NZ Introduction of Analgesics, Hypnotics, Sedatives into Peripheral Vein, Percutaneous Approach (ICD-10-PCS; principal; 2018-09-17)
PROC: 3E033GC Introduction of Other Therapeutic Substance into Peripheral Vein, Percutaneous Approach (ICD-10-PCS; 2018-09-17)
DX: R07.9 Chest pain, unspecified (principal); E78.5 Hyperlipidemia, unspecified; I11.9 Hypertensive heart disease without heart failure; I25.10 Atherosclerotic heart disease of native coronary artery without angina pectoris; I26.99 Other pulmonary embolism without acute cor pulmonale; F31.9 Bipolar disorder, unspecified; K21.9 Gastro-esophageal reflux disease without esophagitis; E66.9 Obesity, unspecified; Z68.41 Body mass index [BMI] 40.0-44.9, adult; Z79.01 Long term (current) use of anticoagulants; Z88.6 Allergy status to analgesic agent; Z98.61 Coronary angioplasty status
CPT/HCPCS: 36415; 71045-TC-FY; 71275-TC; 80053; 82550; 82553; 83880; 84484; 85025; 85610; 85730; 93005; 93010; 93306-TC; 96374; 96375; 96376; 99285-25; G0378

== ENCOUNTER 2018-10-03 21:00 | Emergency (ER) | payer OTHER ==
[2018-10-03 21:20] VITALS: BP 113/62; PULSE 87; TEMP 98.7; BMI 39.3
--- NOTE | 2018-10-03 21:33 | PDOC ---
Attending Attestation - HPI HPI: 10/03/18 22:55 The patient is a 53 year old male with a past medical history of angina, PE, HTN , HLD, obesity, and bipolar disorder here today for evaluation of shortness of breath and chest pain. The patient was seen here on 09/16/18 for similar symptoms and was admitted. The patient reports feeling better after he was discharged but began to feel his shortness of breath and chest pain again yesterday. He reports that his shortness of breath is worse with exercise. The patient also reports lower extremity edema for which he called his bucket turner , Dr. Vega and was told to come to [place]. Patient denies headache, lightheadedness. Denies fever, chills. Denies nausea, vomiting, diarrhea, abdominal pain. Denies urinary symptoms. Denies neurologic symptoms. Allergies: Ketorolac, tramadol, trazodone, morphine, meperidine HCL Social history: denies tobacco use PCP: Juan Cruz Frame Table Operator Helper: Amanda Zambrano <Aguilar Iglesias - Last Filed: 10/03/18 23:23> - Resident Resident Name: Katelyn Henriquez - Physicial Exam PE: 10/04/18 00:23 Agree with resident exam. PAtient is alert and oriented and in no acute distress. Lungs are clear. + trace edema to mid calf bilaterally. - Medical Decision Making 10/04/18 00:24 PT presents to the ED complaining of increasing shortness of breath and leg swelling despite increasing his dose of lasix. Patient is well appearing in the ED and in no respiratory distress, with clear CXR and only minimal edema. BNP is only 23. Pt has outpatient follow up with cardiology. Will consider discharge home with close cardiology follow up. <Justine Hooker - Last Filed: 10/04/18 00:27>
--- NOTE | 2018-10-03 21:37 | PDOC ---
History of Present Illness - General Chief Complaint: Shortness of Breath Stated Complaint: SWELLING TO FEET, KNEE PAIN Time Seen by Provider: 10/03/18 21:16 History Source: Patient Exam Limitations: No Limitations - History of Present Illness Initial Comments: This is a 53 YOM with h/o PE (03/2018 now on Xarelto), LLE DVT (in 2007 after knee surgery), HTN, HLD, obesity, bipolar disorder, depression, chronic low back pain, and osteoarthritis who p/w increased leg swelling, SOB, cough productive of frothy sputum/saliva, and feeling of liquid in his lungs and heart whenever he lays down flat. He notes left sided non-radiating chest pressure ongoing for the past few weeks. Otherwise denies any recent f/c/n/v/d/c , dysuria, abdominal pain, or other symptoms. He went up on his Lasix dose yesterday per his trolley worker's request (from 40mg/day to 40 mg bid). Cardiologists Dr. Pfeiffer and Irvin here at [facility] (states he has seen both of them). PCP is Juan Sylvester. Past History - Past Medical History Allergies/Adverse Reactions: Allergies Allergy/AdvReac Type Severity Reaction Status Date / Time ketorolac [From Toradol] Allergy Severe Difficulty Verified 10/03/18 21:12 Breathing tramadol Allergy Severe Difficulty Verified 10/03/18 21:12 Breathing trazodone Allergy Severe Difficulty Verified 10/03/18 21:12 Breathing morphine Allergy Rash Verified 10/03/18 21:12 meperidine HCl [From Demerol] AdvReac Verified 10/03/18 21:12 Home Medications: Ambulatory Orders Diazepam [Valium -] 10 mg PO TID PRN 05/19/13 Sumatriptan [Imitrex] 100 mg PO DAILY PRN 05/19/13 Atorvastatin Ca [Lipitor] 80 mg PO DAILY 08/14/17 Omeprazole 40 mg PO DAILY 08/14/17 Quetiapine Fumarate [Seroquel] 100 mg PO TID 08/14/17 Zolpidem Tartrate [Ambien] 10 mg PO HS PRN 08/14/17 Atenolol [Tenormin -] 25 mg PO BID #60 tablet 03/23/18 Furosemide [Lasix -] 40 mg PO DAILY #30 tablet 03/23/18 Gabapentin 600 mg PO TID #90 tablet 03/23/18 Orphenadrine Citrate [Orphenadrine Citrate ER] 100 mg PO BID 05/31/18 Topiramate [Topiramate ER] 50 mg PO TID 05/31/18 Oxycodone HCl/Acetaminophen [Percocet 10-325 mg Tablet] 1 each PO TID MDD 2 06/26 Rivaroxaban [Xarelto -] 20 mg PO DAILY 09/16/18 Topiramate [Topamax -] 50 mg PO TID tablet 09/18/18 Cardiac Disorders: Yes (RAPID HEARTBEAT) COPD: No GI Disorders: Yes (GERD) HTN: Yes Hypercholesterolemia: Yes Seizures: Yes (BIPOLAR) - Surgical History Abdominal Surgery: Yes (bilat hernia) Appendectomy: Yes - Immunization History Immunization Up to Date: No - Suicide/Smoking/Psychosocial Hx Smoking Status: No Smoking History: Never smoked Have you smoked in the past 12 months: No Number of Cigarettes Smoked Daily: 0 Hx Alcohol Use: No Drug/Substance Use Hx: No Substance Use Type: None Hx Substance Use Treatment: No Review of Systems - Review of Systems Able to Perform ROS?: Yes Comments:: GEN: weight gain, no fever, chills, malaise, or generalized weakness HEENT: no ear pain, sore throat, vision change, or eye pain CV: edema, chest pain, no palpitations, lightheadedness, or syncope RESP: cough, SOB, no wheezing GI: no abdominal pain, nausea, vomiting, diarrhea, constipation, or white/black/ bloody stool : no dysuria, hematuria, incontinence, retention, bleeding, or discharge MSK: no neck/back pain, muscle weakness/pain, or joint swelling/pain NEURO: no headache, seizure, vertigo, numbness, tingling, or focal weakness PSYCH: no substance use, no behavior change SKIN: no jaundice, no rash ROS otherwise negative except as noted in HPI *Physical Exam - Vital Signs Last Vital Signs Temp Pulse Resp BP Pulse Ox 98.7 F 87 20 113/62 10/03/18 21:12 10/03/18 21:12 10/03/18 21:12 10/03/18 21:12 GENERAL: well-appearing, A/Ox4, no distress, answers questions appropriately, talkative, appears comfortable, speaking full sentences HEENT: PERRLA, EOMI, moist mucous membranes NECK/BACK: no midline ttp, no spinal stepoff or deformity, no hematoma, full ROM , neck supple CARDIOVASCULAR: regular rate/rhythm, normal S1S2, no MGR, strong peripheral pulses, capillary refill <2 seconds, extremities wwp, BLE 2+ pitting edema LUNGS/RESPIRATORY: no respiratory distress, CTAB GI/ABDOMEN: symmetric [id number], normoactive BS, soft, no ttp, no midline pulsatile masses : no CVA tenderness EXTREMITIES: no muscle atrophy, no acute deformity, pitting edema BLE as noted in cardiac section SKIN: warm and dry, no pallor, no jaundice, no rash, no bruising, no skin breakdown, no cuts, no lesions NEUROLOGICAL: GCS 15, CN II-XII grossly intact, 5/5 strength proximally and distally, no facial droop ED Treatment Course - LABORATORY CBC & Chemistry Diagram: 10/03/18 22:47 10/03/18 22:47 Medical Decision Making - Medical Decision Making Pt with h/o CHF who p/w SOB, cough, orthopnea same as their prior CHF. Initial Vital Signs Temp Pulse Resp BP 98.7 F 87 20 113/62 10/03/18 21:12 10/03/18 21:12 10/03/18 21:12 10/03/18 21:12 Exam: As noted in Physical Exam section. DDX IBNLT: CHF, pulmonary edema, COPD, asthma, other lung disease, PNA/ bronchitis, anemia, ACS, pericarditis, tamponade, AD, PE, PTX, allergic reaction , malignancy (e.g. causing pericardial effusion or vascular shunt), other infection, pulmonary HTN, etc. W/U ordered: CBCD CMP Mg Phos Troponin CK CKMB BNP EKG CXR TX ordered: None initially EKG: Reviewed; results as noted in ECG Review section. CXR: No acute cardiopulmonary processes Laboratory Tests 10/03/18 10/03/18 10/03/18 22:47 22:47 22:47 WBC 7.5 RBC 4.75 Hgb 14.9 Hct 42.6 MCV 89.7 MCH 31.3 MCHC 35.0 RDW 14.5 Plt Count 208 MPV 9.0 Absolute Neuts (auto) 4.0 Neutrophils % 53.9 Lymphocytes % 31.7 Monocytes % 10.0 Eosinophils % 3.1 D Basophils % 1.3 D Nucleated RBC % 0 PT with INR 26.80 H INR 2.25 H Sodium 138 Potassium 3.3 L Chloride 94 L Carbon Dioxide 36 H Anion Gap 8 BUN 18 Creatinine 1.3 Creat Clearance w eGFR 57.53 Random Glucose 141 H Calcium 8.1 L Phosphorus 3.7 Magnesium 2.2 Total Bilirubin 0.4 AST 54 H ALT 45 Alkaline Phosphatase 128 H Creatine Kinase 464 H Creatine Kinase Index 0.4 CK-MB (CK-2) 2.0 Troponin I < 0.02 B-Natriuretic Peptide 23.1 Total Protein 7.0 Albumin 3.8 Reassessment: Patient states feels well, comfortable going home. I offer him Motrin before going home and he obliges. 10/04/18 00:31 Workup is not concerning for emergency-level pathology at this time. The Pt is appropriate for discharge with close outpatient follow up. He is comfortable with this plan and will follow up with his primary care provider in 1-3 days. He will call both his PCP and his trolley worker in the morning (Thursday, today). He will speak with his trolley worker about having an appointment before his previously scheduled 09/14/18 appointment. Specific return precautions are discussed and they will come back to the ER if necessary. *DC/Admit/Observation/Transfer Diagnosis at time of Disposition: Leg swelling - Discharge Dispostion Disposition: HOME Condition at time of disposition: Stable Decision to Admit order: No - Referrals Referrals: Juan Sylvester MD [Primary Care Provider] - - Patient Instructions Additional Instructions: You were seen in the ER for leg swelling and unchanged chronic chest pain. We did lab work, an electrocardiogram, and a chest x-ray, and we did not find any concerning abnormalities. Your lab work and exam suggest that you are not having heart failure exacerbation right now. After our assessment, we do not believe you are having a medical emergency at this time, and we believe you are safe to go home. Take all of your regular medicines at home, including the 40 mg or Lasix twice a day as instructed by your trolley worker. Take over the counter pain medications for your pain, as instructed on the medication label. Please follow up with your primary care provider on Thursday. Call their clinic as soon as possible, tell them you were seen in the ER, and tell them you need an appointment. Call your trolley worker on Thursday morning too and inform them that you were seen in the ER and need a follow up appointment BANDAR. If you have any new or worsening symptoms, especially worsening chest pain, jaw pain, shoulder/arm pain, shortness of breath, sweats, nausea, loss of consciousness, palpitations, or other symptoms, please come back to the ER at any time (24 hours a day). If you are having severe or life threatening symptoms, or symptoms that make it unsafe to drive or have someone drive you, please call 911. - Post Discharge Activity
[2018-10-03 22:57] LABS: BASO % 1.3 % (0-2.0); EOS % 3.1 % (0-4.5); HEMATOCRIT 42.6 % (35.4-49); HEMOGLOBIN 14.9 GM/dL (11.7-16.9); LYMPH % 31.7 % (8-40); MCH 31.3 pg (25.7-33.7); MEAN CELL VOLUME 89.7 fl (80-96); NEUT % 53.9 % (42.8-82.8); PLATELET COUNT 208 K/MM3 (134-434); RBC 4.75 M/mm3 (4.00-5.60); RDW 14.5 % (11.9-15.9); WHITE BLOOD COUNT 7.5 K/mm3 (4.0-10.0)
[2018-10-03 23:27] LABS: ALBUMIN 3.8 g/dl (3.4-5.0); ALK PHOS 128 U/L (45-117); ANION GAP 8 MMOL/L (8-16); BILIRUBIN,TOTAL 0.4 mg/dL (0.2-1); BLOOD UREA NITROGEN 18 mg/dL (7-18); CALCIUM 8.1 mg/dL (8.5-10.1); CHLORIDE 94 mmol/L (98-107); CO2 36 mmol/L (21-32); CREATININE 1.3 mg/dL (0.55-1.3); GLUCOSE,RANDOM 141 mg/dL (74-106); MAGNESIUM 2.2 mg/dL (1.8-2.4); N-TERMINAL BNP 23.1 pg/ml (5-125); PHOSPHOROUS 3.7 mg/dL (2.5-4.9); POTASSIUM 3.3 mmol/L (3.5-5.1); SGOT/AST 54 U/L (15-37); SGPT/ALT 45 U/L (13-61); SODIUM 138 mmol/L (136-145)
[2018-10-03 23:32] LABS: INR 2.25 (0.83-1.09); PROTHROMBIN TIME (PATIENT) 26.8 SEC (9.7-13.0)
[2018-10-03] MEDS ORDERED: POTASSIUM CHLORIDE TABS 20 MEQ TABLET.ER (FP) PO ONE (23:44)
[2018-10-04] MEDS ORDERED: POTASSIUM CHLORIDE TABS 20 MEQ TABLET.ER (FP) PO ONE (00:17)
[2018-10-04] MEDS ORDERED: IBUPROFEN 400 MG TABLET (FP) PO ONE ×2 (00:29→00:42)
--- NOTE | 2018-10-04 10:55 | EKG ---
Test Reason : Blood Pressure : / mmHG Vent. Rate : 077 BPM Atrial Rate : 077 BPM P-R Int : 182 ms QRS Dur : 090 ms QT Int : 404 ms P-R-T Axes : 050 -11 027 degrees QTc Int : 457 ms NORMAL SINUS RHYTHM NORMAL ECG WHEN COMPARED WITH ECG OF 16-SEP-2018 19:09, NO SIGNIFICANT CHANGE WAS FOUND Confirmed by ALENA WILSON MD ([id number]) on 10/04/2018 10:55:34 AM Referred By: Confirmed By:ALENA WILSON MD
== END 2018-10-04 00:55 | disposition home or self-care (01) ==
LOC: JER 21:00
DX: R60.0 Localized edema (principal); I11.0 Hypertensive heart disease with heart failure; I50.9 Heart failure, unspecified; E78.5 Hyperlipidemia, unspecified; F31.9 Bipolar disorder, unspecified; M54.5 Low back pain; G89.29 Other chronic pain; M19.90 Unspecified osteoarthritis, unspecified site; E66.9 Obesity, unspecified; Z68.39 Body mass index [BMI] 39.0-39.9, adult; Z86.718 Personal history of other venous thrombosis and embolism; Z86.711 Personal history of pulmonary embolism; Z79.01 Long term (current) use of anticoagulants; Z88.8 Allergy status to other drugs, medicaments and biological substances
CPT/HCPCS: 36415; 71046-TC-FY; 80053; 82550; 82553; 83735; 83880; 84100; 84484; 85025; 85610; 86850; 86900; 86901; 93005; 93010; 99282-25

== ENCOUNTER 2018-10-06 12:32 | Emergency (ER) | payer OTHER ==
[2018-10-06 12:46] VITALS: BMI 39.3
--- NOTE | 2018-10-06 14:22 | PDOC ---
History of Present Illness - General Chief Complaint: Edema Stated Complaint: CHEST PAIN-REF BY DOC. Time Seen by Provider: 10/06/18 13:47 History Source: Patient Exam Limitations: No Limitations - History of Present Illness Initial Comments: 10/06/18 14:15 53 yo male pmh of anxiety, bipolar, angina, PE (on Xarelto) HTN, HLD and morbid obesity presents to the ED for Chest Pain and bilateral leg edema. Pt states his CP is of the same intensity and quality over the past 3-4 months described as sharp point tenderness lateral to the sternum around the 4th rib, intermittent, non radiating and worse on exertion. Of note Pt states he had a Nuclear stress test [address] Bryan and has a follow up appointment on Oct 14 for results. Also spoke with the Rfp Writer after the stress test regarding worsening bilateral lower limb edema and had his furosemide increased from 40 to 80 mg a day without improvement of swelling. Pt does admit to waking up in the middle of the night SOB. Admits to bilateral calf tenderness as well. Last CTA in the system 09/17/2018, negative for PE. Denies F/C/N/V, changes in urinary or bowel habits, abdominal pain or neurological symptoms. Past History - Past Medical History Allergies/Adverse Reactions: Allergies Allergy/AdvReac Type Severity Reaction Status Date / Time ketorolac [From Toradol] Allergy Severe Difficulty Verified 10/06/18 12:37 Breathing tramadol Allergy Severe Difficulty Verified 10/06/18 12:37 Breathing trazodone Allergy Severe Difficulty Verified 10/06/18 12:37 Breathing morphine Allergy Rash Verified 10/06/18 12:37 meperidine HCl [From Demerol] AdvReac Verified 10/06/18 12:37 Home Medications: Ambulatory Orders Diazepam [Valium -] 10 mg PO TID PRN 05/19/13 Sumatriptan [Imitrex] 100 mg PO DAILY PRN 05/19/13 Atorvastatin Ca [Lipitor] 80 mg PO DAILY 08/14/17 Omeprazole 40 mg PO DAILY 08/14/17 Quetiapine Fumarate [Seroquel] 100 mg PO TID 08/14/17 Zolpidem Tartrate [Ambien] 10 mg PO HS PRN 08/14/17 Atenolol [Tenormin -] 25 mg PO BID #60 tablet 03/23/18 Furosemide [Lasix -] 40 mg PO DAILY #30 tablet 03/23/18 Gabapentin 600 mg PO TID #90 tablet 03/23/18 Orphenadrine Citrate [Orphenadrine Citrate ER] 100 mg PO BID 05/31/18 Topiramate [Topiramate ER] 50 mg PO TID 05/31/18 Oxycodone HCl/Acetaminophen [Percocet 10-325 mg Tablet] 1 each PO TID MDD 2 06/26 Rivaroxaban [Xarelto] 20 mg PO DAILY 09/16/18 Topiramate [Topamax -] 50 mg PO TID tablet 09/18/18 Cardiac Disorders: Yes (RAPID HEARTBEAT) COPD: No GI Disorders: Yes (GERD) HTN: Yes Hypercholesterolemia: Yes Seizures: Yes (BIPOLAR) - Surgical History Abdominal Surgery: Yes (bilat hernia) Appendectomy: Yes - Immunization History Immunization Up to Date: No - Suicide/Smoking/Psychosocial Hx Smoking Status: No Smoking History: Never smoked Have you smoked in the past 12 months: No Number of Cigarettes Smoked Daily: 0 Hx Alcohol Use: No Drug/Substance Use Hx: No Substance Use Type: None Hx Substance Use Treatment: No Review of Systems - Review of Systems Constitutional: No: Chills, Fever Respiratory: Yes: Orthopnea. No: Shortness of Breath, Wheezing Cardiac (ROS): Yes: Chest Pain (chronic), Edema (chronic ). No: Irregular Heart Rate ABD/GI: No: Constipated, Diarrhea, Nausea, Vomiting : No: Burning, Dysuria, Flank Pain Musculoskeletal: No: Back Pain *Physical Exam - Vital Signs Last Vital Signs Temp Pulse Resp BP Pulse Ox 98.0 F 85 18 105/66 96 10/06/18 12:34 10/06/18 12:34 10/06/18 12:34 10/06/18 12:34 10/06/18 12:34 - Physical Exam General Appearance: Yes: Nourished, Appropriately Dressed. No: Apparent Distress HEENT: positive: EOMI Respiratory/Chest: positive: Lungs Clear, Normal Breath Sounds. negative: Accessory Muscle Use, Crackles, Rales, Rhonchi, Wheezing Cardiovascular: positive: Regular Rhythm, Regular Rate, S1, S2, Edema (2+ pitting). negative: JVD, Murmur Vascular Pulses: Dorsalis-Pedis (R): 4+, Doralis-Pedis (L): 4+ Gastrointestinal/Abdominal: positive: Normal Bowel Sounds, Soft. negative: Protuberent, Distended, Guarding, Rebound, Tenderness Musculoskeletal: positive: Normal Inspection (ambulating ) Extremity: positive: Normal Capillary Refill Integumentary: positive: Normal Color, Dry, Warm Neurologic: positive: Fully Oriented, Alert, Normal Mood/Affect, Normal Response Moderate Sedation - Procedure Monitoring Vital Signs: Procedure Monitoring Vital Signs Temperature 98.0 F 10/06/18 12:34 Pulse Rate 85 10/06/18 12:34 Respiratory Rate 18 10/06/18 12:34 Blood Pressure 105/66 10/06/18 12:34 O2 Sat by Pulse Oximetry (%) 96 10/06/18 12:34 Heart Score/ECG Review - History History: Slightly suspicious - Age Age: 45-65 - Risk Factors Risk Factors Heart Score: Yes Hx Hypercholesterolemia, Yes Hx Hypertension, Yes Hx Obesity - Troponin Troponin: </= normal limit ED Treatment Course - LABORATORY CBC & Chemistry Diagram: 10/06/18 15:30 10/06/18 15:30 - RADIOLOGY Radiology Studies Ordered: Category Date Time Status CHEST PA & LAT [RAD] Stat Radiology 10/06/18 14:14 Ordered Medical Decision Making - Medical Decision Making 53 yo male very well known to the ED presents for his chronic CP and worsening bilateral leg edema worsening after increasing dosage from 40mg to 80mg per day for the past 5 days. 10/06/18 14:54 Pt states he took valium and seroquel today for anxiety because he knows every time he comes to the ed he becomes very anxious. EKG normal sinus no ST changes DVT study negative Blood work WNL but Potassium low. Chest X ray not needed on todays evaluation due to recent imaging, Nuclear stress test, upcoming Cardio appointment. 10/06/18 16:[address] Bryan who states the pts nuclear stress test showed no ischemia and EF was 65%. He would like the pt to decrease his Furosemide from 40 BID to 40 mg daily since it is not helping with the swelling and would like him to ANIYA wrap is lower legs. Follow up appoint confirmed on Oct [address] Bryan and states pt is safe to discharge home. DC home with PCP and Cardiology follow up with strict return precautions and low salt diet and increased potassium Pt agrees and understands discharge plans *DC/Admit/Observation/Transfer Diagnosis at time of Disposition: Lower extremity edema Chest pain Qualifiers: Chest pain type: unspecified Qualified Code(s): R07.9 - Chest pain, unspecified - Discharge Dispostion Disposition: HOME Condition at time of disposition: Stable Decision to Admit order: No - Referrals Referrals: Juan Sylvester MD [Primary Care Provider] - Konrad Bryan MD [Staff Physician] - - Patient Instructions Printed Discharge Instructions: Low-Sodium Diet Additional Instructions: Please follow up and schedule an appointment with your Primary Care Doctor and Rfp Writer within the next 2 days. According to your Doctor, only take 40mg of Furosemide until your next visit, increase potassium in your diet and reduce salt intake which can be contributing to your swollen legs. Use aniya wrap to compress legs and decrease swelling. Return to the emergency room for new or concerning symptoms including but not limited to: severe chest pain, shortness of breath, worsening leg edema with calf tenderness, sudden warmth and sweating. Thank you - Post Discharge Activity
[2018-10-06 15:39] LABS: BASO % 0.9 % (0-2.0); EOS % 2.7 % (0-4.5); HEMATOCRIT 40.1 % (35.4-49); HEMOGLOBIN 12.9 GM/dL (11.7-16.9); MCH 29.4 pg (25.7-33.7); MCHC 32.2 g/dl (32.0-35.9); MEAN CELL VOLUME 91.4 fl (80-96); MEAN PLT VOLUME 8.5 fl (7.5-11.1); MONO % 9.4 % (3.8-10.2); PLATELET COUNT 171 K/MM3 (134-434); RBC 4.39 M/mm3 (4.00-5.60); RDW 14.5 % (11.9-15.9); WHITE BLOOD COUNT 7.7 K/mm3 (4.0-10.0)
--- NOTE | 2018-10-06 15:51 | EKG ---
Test Reason : Blood Pressure : / mmHG Vent. Rate : 072 BPM Atrial Rate : 072 BPM P-R Int : 172 ms QRS Dur : 092 ms QT Int : 404 ms P-R-T Axes : 027 -15 027 degrees QTc Int : 442 ms NORMAL SINUS RHYTHM NORMAL ECG WHEN COMPARED WITH ECG OF 03-OCT-2018 22:18, NO SIGNIFICANT CHANGE WAS FOUND Confirmed by JOE ELLSWORTH MD ([id number]) on 10/06/2018 3:51:40 PM Referred By: Confirmed By:JOE ELLSWORTH MD
[2018-10-06 15:55] LABS: INR 1.14 (0.83-1.09); PROTHROMBIN TIME (PATIENT) 13.5 SEC (9.7-13.0)
[2018-10-06 15:57] LABS: ACTIVATED PTT 31.4 SECONDS (25.2-36.5)
--- NOTE | 2018-10-06 16:06 | PDOC ---
Attending Attestation - HPI HPI: 10/06/18 16:21 53YOM, with a significant past medical history of anxiety, bipolar, angina, PE ( on Xarelto) HTN, HLD and morbid obesity, who presents to the emergency department with, chest pain and lower extremity edema. Patients chest pain has been chronic over the was 3-4 months. Patient has a follow up appointment with Dr. Bryan. Allergies: Ketorolac, tramadol, trazodone, morphine, meperidine HCL Social history: denies tobacco use PCP: Dr. Juan Cruz - Physicial Exam PE: 10/06/18 16:21 NAD, well appearing, PERRL, EOMI, MMM, nl conjunctiva, anicteric; neck supple. lungs clear, RRR, abdomen soft nontender. CAMPBELL x4, no focal neuro deficits. normal color for ethnicity, WWP. +bilateral leg edema and calf tenderness. <Ronnie Peguero - Last Filed: 10/06/18 16:21> - Resident Resident Name: Mesfin Gresham - ED Attending Attestation I have performed the following: I have examined & evaluated the patient, The case was reviewed & discussed with the resident, I agree w/resident's findings & plan - Medical Decision Making 10/06/18 17:12 SOTO 53 yo male pmh of anxiety, bipolar, angina, PE (on Xarelto) HTN, HLD and morbid obesity presents to the ED for Chest Pain and bilateral leg edema. Vital signs reviewed, wnl. Prior notes reviewed, including admissions, discharges and consultations. laboratory results and imaging reviewed, basic labs and lytes wnl, notable for low potassium repleted with PO 40 meq UA_unremarkable Cardiac panel_neg trop, bnp negative, doubt fluid overload or cardiomyopathy flareup EKG normal sinus rhythm, no interval abnormalities, narrow QRS, ST and T wave segments and morphology normal. Nonspecific T wave abnormalities ED course: duplex negative for DVT bilaterally Diuretic use likely causing low potassium, which was repleted Called to his home care coordinator, Dr. Bryan - normal stress echo, EF 65%, which is reassuring, less likely anginal/cardiac. Has been comfortable, tolerating PO intake, no falls. Elevate legs, avoid salty food intake or food precipitants and salt retention Dispo: Pt to be discharged in stable condition. Patient and family made aware of impression and plan, return precautions discussed (including but not limited to worsening pain or symptoms), fevers, or signs of infection, chest pain, respiratory distress, inability to tolerate oral intake, dehydration, syncope, or neurologic changes). Follow up with PMD and/or specialist as recommended, follow up information provided, take medications as instructed for duration of time. continue with supportive care, avoid triggers and precipitants. All questions answered to patient's satisfaction and expressed understanding and comfort with this. <Brittani Perez - Last Filed: 10/06/18 17:16> Heart Score/ECG Review - ECG Impressions Normal ECG: Yes Comment:: 10/06/18 16:07 EKG normal sinus rhythm, no interval abnormalities, narrow QRS, ST and T wave segments and morphology normal. Nonspecific T wave abnormalities <Brittani Perez - Last Filed: 10/06/18 17:16> Attestations - Attestations 10/06/18 16:22 Documentation prepared by Ronnie Pegeuro, acting as medical technician for Brittani Perez MD. <Ronnie Peguero - Last Filed: 10/06/18 16:21> - Attestations Physician Attestation: 10/06/18 17:16 I, Brittani Perez MD, attest that this document has been prepared under my direction and personally reviewed by me in its entirety. I further attest, that it accurately reflects all work, treatment, procedures and medical decision -making performed by me. <Brittani Perez - Last Filed: 10/06/18 17:16>
[2018-10-06 16:07] LABS: ALBUMIN 3.4 g/dl (3.4-5.0); ALK PHOS 125 U/L (45-117); ANION GAP 11 MMOL/L (8-16); BILIRUBIN,TOTAL 0.2 mg/dL (0.2-1); BLOOD UREA NITROGEN 16 mg/dL (7-18); CALCIUM 7.9 mg/dL (8.5-10.1); CHLORIDE 102 mmol/L (98-107); CO2 29 mmol/L (21-32); CREATININE 1.2 mg/dL (0.55-1.3); GLUCOSE,RANDOM 144 mg/dL (74-106); POTASSIUM 3.1 mmol/L (3.5-5.1); SGOT/AST 31 U/L (15-37); SGPT/ALT 34 U/L (13-61); SODIUM 141 mmol/L (136-145); TOT PROT 6.2 g/dl (6.4-8.2)
[2018-10-06] MEDS ORDERED: POTASSIUM CHLORIDE TABS 20 MEQ TABLET.ER (FP) PO ONE ×2 (16:17→17:01)
[2018-10-06 17:27] LABS: URINE APPEARANCE CLEAR; URINE BILIRUBIN NEGATIVE (<2.0 mg/dL); URINE COLOR LTYELLOW; URINE GLUCOSE (UA) NEGATIVE (NEGATIVE); URINE KETONE NEGATIVE (NEGATIVE); URINE LEUK ESTERASE NEGATIVE (NEGATIVE); URINE NITRITE NEGATIVE (NEGATIVE); URINE PROTEIN NEGATIVE (NEGATIVE); URINE UROBILINOGEN NEGATIVE mg/dL (0.2-1.0)
[2018-10-06 18:08] VITALS: BP 145/78; PULSE 87; TEMP 97.9
== END 2018-10-06 17:50 | disposition home or self-care (01) ==
LOC: JER 12:32
DX: M79.89 Other specified soft tissue disorders (principal); R07.9 Chest pain, unspecified; F31.9 Bipolar disorder, unspecified; I10 Essential (primary) hypertension; K21.9 Gastro-esophageal reflux disease without esophagitis; R00.2 Palpitations
CPT/HCPCS: 36415; 80053; 81003; 82550; 82553; 83880; 84484; 85025; 85610; 85730; 87086; 93005; 93010; 93970-TC; 99282-25

== ENCOUNTER 2018-10-20 20:09 | Emergency (ER) | payer OTHER ==
--- NOTE | 2018-10-20 20:14 | PDOC ---
Rapid Medical Evaluation Time Seen by Provider: 10/20/18 20:11 Medical Evaluation: Allergies Allergy/AdvReac Type Severity Reaction Status Date / Time ketorolac [From Toradol] Allergy Severe Difficulty Verified 10/20/18 18:45 Breathing tramadol Allergy Severe Difficulty Verified 10/20/18 18:45 Breathing trazodone Allergy Severe Difficulty Verified 10/20/18 18:45 Breathing morphine Allergy Rash Verified 10/20/18 18:45 meperidine HCl [From Demerol] AdvReac Verified 10/20/18 18:45 10/20/18 20:11 10/20/18 19:49 I have performed a brief in-person evaluation of this patient. The patient presents with a chief complaint of: Seen in ED >1 hr ago for toe injury, dx with toe fracture but was erroneously sent to 12 in main and FT staff was not able to find pt so made his dispo an elopement. Pt never left premises Pertinent physical exam findings: unremarkable I have ordered the following:xr showed toe fx earlier The patient will proceed to the ED for further evaluation Discharge Disposition - Diagnosis Toe fracture Qualifiers: Encounter type: initial encounter Toe: unspecified toe Fracture type: closed Fracture alignment: nondisplaced Laterality: left Qualified Code(s): S92.912A - Unspecified fracture of left toe(s), initial encounter for closed fracture - Referrals - Patient Instructions - Post Discharge Activity
[2018-10-20 20:16] VITALS: BP 125/80; PULSE 67; TEMP 98.9; BMI 38.5
[2018-10-20] MEDS ORDERED: DIPHTH,PERTUSS(ACELL),TET 0.5 ML DISP.SYRIN IM ONE ×2 (21:54→22:06)
[2018-10-20] MEDS ORDERED: CEPHALEXIN MONOHYDRATE 500 MG CAPSULE (UD) PO ONE (22:25)
[2018-10-20] MEDS ORDERED: CEPHALEXIN MONOHYDRATE 500 MG CAPSULE (UD) ONE (22:38)
--- NOTE | 2018-10-20 22:44 | PDOC ---
History of Present Illness - General Chief Complaint: Injury Stated Complaint: INJURY Time Seen by Provider: 10/20/18 20:11 History Source: Patient Exam Limitations: No Limitations Past History - Past Medical History Allergies/Adverse Reactions: Allergies Allergy/AdvReac Type Severity Reaction Status Date / Time ketorolac [From Toradol] Allergy Severe Difficulty Verified 10/20/18 18:45 Breathing tramadol Allergy Severe Difficulty Verified 10/20/18 18:45 Breathing trazodone Allergy Severe Difficulty Verified 10/20/18 18:45 Breathing morphine Allergy Rash Verified 10/20/18 18:45 meperidine HCl [From Demerol] AdvReac Verified 10/20/18 18:45 Home Medications: Ambulatory Orders Diazepam [Valium -] 10 mg PO TID PRN 05/19/13 Sumatriptan [Imitrex] 100 mg PO DAILY PRN 05/19/13 Atorvastatin Ca [Lipitor] 80 mg PO DAILY 08/14/17 Omeprazole 40 mg PO DAILY 08/14/17 Quetiapine Fumarate [Seroquel] 100 mg PO TID 08/14/17 Zolpidem Tartrate [Ambien] 10 mg PO HS PRN 08/14/17 Atenolol [Tenormin -] 25 mg PO BID #60 tablet 03/23/18 Furosemide [Lasix -] 40 mg PO DAILY #30 tablet 03/23/18 Gabapentin 600 mg PO TID #90 tablet 03/23/18 Orphenadrine Citrate [Orphenadrine Citrate ER] 100 mg PO BID 05/31/18 Topiramate [Topiramate ER] 50 mg PO TID 05/31/18 Oxycodone HCl/Acetaminophen [Percocet 10-325 mg Tablet] 1 each PO TID MDD 2 06/26 Rivaroxaban [Xarelto] 20 mg PO DAILY 09/16/18 Cephalexin Monohydrate [Keflex -] 500 mg PO Q6H #28 capsule 10/20/18 Cardiac Disorders: Yes (RAPID HEARTBEAT) COPD: No GI Disorders: Yes (GERD) HTN: Yes Hypercholesterolemia: Yes Seizures: Yes (BIPOLAR) - Surgical History Abdominal Surgery: Yes (bilat hernia) Appendectomy: Yes - Immunization History Immunization Up to Date: No - Suicide/Smoking/Psychosocial Hx Smoking Status: No Smoking History: Unknown if ever smoked Have you smoked in the past 12 months: No Number of Cigarettes Smoked Daily: 0 Hx Alcohol Use: No Drug/Substance Use Hx: No Substance Use Type: None Hx Substance Use Treatment: No *Physical Exam - Vital Signs Last Vital Signs Temp Pulse Resp BP Pulse Ox 98.9 F 67 16 125/80 99 10/20/18 20:14 10/20/18 20:14 10/20/18 20:14 10/20/18 20:14 10/20/18 20:14 - Physical Exam General Appearance: No: Apparent Distress Respiratory/Chest: positive: Lungs Clear, Normal Breath Sounds. negative: Respiratory Distress Cardiovascular: positive: Regular Rhythm, Regular Rate, S1, S2. negative: Murmur Extremity: positive: Other (+nail avulsion of L 2nd toe with clotted blood, no active bleeding, no laceration noted, normal capillary refill, normal sensation) Neurologic: positive: Fully Oriented, Alert, Normal Mood/Affect Moderate Sedation - Procedure Monitoring Vital Signs: Procedure Monitoring Vital Signs Temperature 98.9 F 10/20/18 20:14 Pulse Rate 67 10/20/18 20:14 Respiratory Rate 16 10/20/18 20:14 Blood Pressure 125/80 10/20/18 20:14 O2 Sat by Pulse Oximetry (%) 99 10/20/18 20:14 ED Treatment Course - RADIOLOGY Radiology Studies Ordered: Category Date Time Status TOE(S) LEFT [RAD] Stat Radiology 10/20/18 22:25 Ordered - Medications Given in the ED: ED Medications Discontinued Medications Generic Name Dose Route Start Last Admin Trade Name Freq PRN Reason Stop Dose Admin Diphtheria/Tetanus/Acell Pertussis 0.5 ml 10/20/18 21:54 10/20/18 22:13 Boostrix - IM 10/20/18 21:55 0.5 ml .ONCE ONE Administration Oxycodone/Acetaminophen 1 combo 10/20/18 21:54 10/20/18 22:13 Percocet 5/325 - PO 10/20/18 21:55 1 combo ONCE ONE Administration Medical Decision Making - Medical Decision Making 53 y/o M hx of anxiety, bipolar, angina, PE (finished his course of Xarelto 1 week ago), HTN, HLD presents with injury to L 2nd toe after 30 ounce shampoo bottle fell on it last night. Patient states the nail was loose and he pulled it off himself. Denies fever, numbness. Patient cleaned toe with alcohol and hydrogen peroxide. Unsure of last tetanus. PE notable for complete removal of L 2nd toenail; no active bleeding or laceration noted. Initial toe xray raises concern for FB along with tuft fracture Toe was irrigated Will send for xray again to see if FB is still visible Tetanus updated; patient given Keflex given open wound 10/20/18 22:39 Repeat x-ray reviewed with Dr Dominguez and no FB noted L 2nd toe was covered with Xeroform dressing, and lonny taped with adjacent toe Patient has f/u with his PCP in 2 days; advised to also get his wound rechecked. 10/20/18 23:45 *DC/Admit/Observation/Transfer Diagnosis at time of Disposition: Nail avulsion of toe Toe fracture Qualifiers: Encounter type: initial encounter Toe: unspecified toe Fracture type: closed Fracture alignment: nondisplaced Laterality: left Qualified Code(s): S92.912A - Unspecified fracture of left toe(s), initial encounter for closed fracture - Discharge Dispostion Disposition: HOME Condition at time of disposition: Good Decision to Admit order: No - Prescriptions Prescriptions: Cephalexin Monohydrate [Keflex -] 500 mg PO Q6H #28 capsule - Referrals - Patient Instructions Printed Discharge Instructions: DI for Toe Fracture, DI for Nail Avulsion Injury Additional Instructions: Thank you for choosing [facility]. It was a pleasure taking care of you. Please follow-up with your PCP in 2 days, as already scheduled, for wound recheck Keep wound dry and clean Return to the Emergency Department if your symptoms worsen or persist, you have fever, increased swelling, redness around toe, pustular discharge from toe or other concerning symptoms. - Post Discharge Activity
--- NOTE | 2018-10-20 23:13 | PDOC ---
*Physical Exam - Vital Signs Last Vital Signs Temp Pulse Resp BP Pulse Ox 98.9 F 67 16 125/80 99 10/20/18 20:14 10/20/18 20:14 10/20/18 20:14 10/20/18 20:14 10/20/18 20:14 - Physical Exam Comments: 10/20/18 23:11 Agree with exam as documented by PA ED Treatment Course - Medications Given in the ED: ED Medications Discontinued Medications Generic Name Dose Route Start Last Admin Trade Name Glory PRN Reason Stop Dose Admin Cephalexin HCl 500 mg 10/20/18 22:25 10/20/18 22:49 Keflex - PO 10/20/18 22:26 500 mg ONCE ONE Administration Diphtheria/Tetanus/Acell Pertussis 0.5 ml 10/20/18 21:54 10/20/18 22:13 Boostrix - IM 10/20/18 21:55 0.5 ml .ONCE ONE Administration Oxycodone/Acetaminophen 1 combo 10/20/18 21:54 10/20/18 22:13 Percocet 5/325 - PO 10/20/18 21:55 1 combo ONCE ONE Administration Medical Decision Making - Medical Decision Making 10/20/18 23:11 Possible tuft fracture on xr of L lower D2 with overlying nail avulsion from crush injury questionable FB. <1cm injury on nailbed, no closable lacerations on exam. Copious and aggressive irrigation of toe repeat XR lonny tape close follow up *DC/Admit/Observation/Transfer Diagnosis at time of Disposition: Nail avulsion of toe Toe fracture Qualifiers: Encounter type: initial encounter Toe: unspecified toe Fracture type: closed Fracture alignment: nondisplaced Laterality: left Qualified Code(s): S92.912A - Unspecified fracture of left toe(s), initial encounter for closed fracture - Discharge Dispostion Disposition: HOME Condition at time of disposition: Good - Prescriptions Prescriptions: Cephalexin Monohydrate [Keflex -] 500 mg PO Q6H #28 capsule - Referrals - Patient Instructions Printed Discharge Instructions: DI for Toe Fracture, DI for Nail Avulsion Injury Additional Instructions: Thank you for choosing [facility]. It was a pleasure taking care of you. Please follow-up with your PCP in 2 days, as already scheduled, for wound recheck Keep wound dry and clean Return to the Emergency Department if your symptoms worsen or persist, you have fever, increased swelling, redness around toe, pustular discharge from toe or other concerning symptoms. - Post Discharge Activity
== END 2018-10-21 00:18 | disposition home or self-care (01) ==
LOC: JER 20:09
PROC: 3E0234Z Introduction of Serum, Toxoid and Vaccine into Muscle, Percutaneous Approach (ICD-10-PCS; principal; 2018-10-20)
DX: S91.205A Unspecified open wound of left lesser toe(s) with damage to nail, initial encounter (principal); S92.912A Unspecified fracture of left toe(s), initial encounter for closed fracture; W20.8XXA Other cause of strike by thrown, projected or falling object, initial encounter; Y93.9 Activity, unspecified; Y92.009 Unspecified place in unspecified non-institutional (private) residence as the place of occurrence of the external cause; I10 Essential (primary) hypertension; E78.5 Hyperlipidemia, unspecified; F31.9 Bipolar disorder, unspecified; F41.9 Anxiety disorder, unspecified; I20.9 Angina pectoris, unspecified; Z79.01 Long term (current) use of anticoagulants
CPT/HCPCS: 73660-TC-LT-FY; 90471; 90715; 99281-25; 99282-25

== ENCOUNTER 2018-10-30 18:59 | Inpatient (IN) | payer OTHER ==
[2018-10-30 19:06] VITALS: BMI 39.7
--- NOTE | 2018-10-30 20:49 | PDOC ---
Attending Attestation - HPI HPI: 10/30/18 22:09 The patient is a 53 year old male, with a significant past medical history of anxiety, bipolar, angina, PE (on Xarelto) HTN, HLD and morbid obesity, who presents to the emergency department with, bilateral lower extremity edema. He endorses doubling his Lasix prior to his arrival, with minimal relief. Allergies: Ketorolac, tramadol, trazodone, morphine, meperidine HCL Social history: denies tobacco use PCP: Dr. Juan Cruz - Physicial Exam PE: 10/30/18 22:09 GENERAL: Awake, alert, and fully oriented, in no acute distress HEAD: No signs of trauma EYES: PERRLA, EOMI, sclera anicteric, conjunctiva clear ENT: Auricles normal inspection, hearing grossly normal, nares patent, oropharynx clear without exudates. Moist mucosa NECK: Normal ROM, supple, no lymphadenopathy, JVD, or masses LUNGS: Breath sounds equal, clear to auscultation bilaterally. No wheezes, and no crackles HEART: Regular rate and rhythm, normal S1 and S2, no murmurs, rubs or gallops ABDOMEN: Soft, nontender, normoactive bowel sounds. No guarding, no rebound. No masses +EXTREMITIES: 1+ pitting edema bilaterally Normal range of motion. No clubbing or cyanosis. No cords, erythema, or tenderness NEUROLOGICAL: Cranial nerves II through XII grossly intact. Normal speech, normal gait SKIN: Warm, Dry, normal turgor, no rashes or lesions noted. <Ronnie Peguero - Last Filed: 10/30/18 22:09> - Resident Resident Name: Joseph Calderon - ED Attending Attestation I have performed the following: I have examined & evaluated the patient, The case was reviewed & discussed with the resident, I agree w/resident's findings & plan - Medical Decision Making 10/30/18 22:37 Pt has rhabdomyolysis, and hypocalcemia and weakness. He will be admitted to Dr. Llamas for admission; we will speak to Dr. Teran, who is specialty development consultant. <Missy Tang - Last Filed: 10/30/18 22:39> Attestations - Attestations 10/30/18 22:10 Documentation prepared by Nirvannie Goberdan, acting as medical assistant instructor for Missy Tang MD. <Ronnie Peguero - Last Filed: 10/30/18 22:09>
--- NOTE | 2018-10-30 21:05 | PDOC ---
History of Present Illness - General History Source: Patient Exam Limitations: No Limitations - History of Present Illness Initial Comments: 10/30/18 20:51 Pt. is a 53 y.o. M w/ PMHx. of CHFpEF, HTN, HLD, DVT x 2 (1976 and 2017), known soft plaque in LAD(no stents), recent stress test in the last 2 weeks that was benign with EF of 65% presents to the ED complaining of worsening shortness of breath on exertion, worsening lower extremity edema. Pt. was recently seen by Dr. Bryan last week where his Xarelto was discontinued indefinitely and his Lasix dose was decreased back to 40mg Daily after a failed trial of 40mg BID. Pt. states that for the last few days he has been taking Lasix 40mg twice a day. Pt. states that the last time he had his BMP checked was 1 month ago. He was last discharged with a potassium of 3.1. Pt. states that he currently sleeps with 4 pillows at night and frequently sleeps with on the couch. Of note Pt. was recently admitted for a left 2nd toe fracture. Pt. has extensive PSHx. of upper and lower extremity surgeries including bilateral knee replacements and left achilles tear. Pt. complains of associated lower extremity pain, dizziness, balance issues, inability to maintain stream when urinating, and a feeling of a lack of urination despite adequate fluid intake. Pt. endorses equal sensation in b/l lower extremities however decreased ROM d/t swelling. Pt. denies fever but endorses sweats and chills last night. CBC, CMP, Mag, CXR, Troponin, EKG and BNP ordered to assess for acute CHF exacerbation. 10/30/18 21:55 250ml NS given and 1gm Ofirmev for pain 10/30/18 22:40 Cardiac profile and CMP results show CK: 3524, CK-MB elevated, Negative Troponins and K+: 4.0, AST 2x ALT, ALP mildy elevated Pt. to be admitted for suspected rhabdomyolysis Timing/Duration: getting worse Severity: mild Modifying Factors: improves with: immobilization, rest Associated Symptoms: reports: fever/chills, shortness of breath, weakness Aspirin Received prior to arrival: Yes: no aspirin today Beta Liset Taken at Home(Core Measure): Yes <Joseph Calderon - Last Filed: 10/30/18 23:54> <Missy Tang - Last Filed: 10/31/18 01:10> - General Chief Complaint: Edema Stated Complaint: SWELLING TO FEET AND ABDOMINAL PAIN Time Seen by Provider: 10/30/18 20:48 Past History - Travel Traveled outside of the country in the last 30 days: No Close contact w/someone who was outside of country & ill: No - Past Medical History Cardiac Disorders: Yes (RAPID HEARTBEAT) COPD: No CHF: Yes DVT: Yes Diabetes: No GI Disorders: Yes (GERD) HTN: Yes Hypercholesterolemia: Yes Seizures: Yes (BIPOLAR) - Surgical History Abdominal Surgery: Yes (bilat hernia) Appendectomy: Yes Orthopedic Surgery: Yes - Immunization History Immunization Up to Date: No - Suicide/Smoking/Psychosocial Hx Smoking Status: No Smoking History: Never smoked Have you smoked in the past 12 months: No Number of Cigarettes Smoked Daily: 0 Hx Alcohol Use: No Drug/Substance Use Hx: No Substance Use Type: None Hx Substance Use Treatment: No <Joseph Calderon - Last Filed: 10/30/18 23:54> <Missy Tang - Last Filed: 10/31/18 01:10> - Past Medical History Allergies/Adverse Reactions: Allergies Allergy/AdvReac Type Severity Reaction Status Date / Time ketorolac [From Toradol] Allergy Severe Difficulty Verified 10/30/18 19:06 Breathing tramadol Allergy Severe Difficulty Verified 10/30/18 19:06 Breathing trazodone Allergy Severe Difficulty Verified 10/30/18 19:06 Breathing morphine Allergy Rash Verified 10/30/18 19:06 meperidine HCl [From Demerol] AdvReac Verified 10/30/18 19:06 Home Medications: Ambulatory Orders Diazepam [Valium -] 10 mg PO TID PRN 05/19/13 Sumatriptan [Imitrex] 100 mg PO DAILY PRN 05/19/13 Atorvastatin Ca [Lipitor] 80 mg PO DAILY 08/14/17 Omeprazole 40 mg PO DAILY 08/14/17 Quetiapine Fumarate [Seroquel] 100 mg PO TID 08/14/17 Zolpidem Tartrate [Ambien] 10 mg PO HS PRN 08/14/17 Atenolol [Tenormin -] 25 mg PO BID #60 tablet 03/23/18 Furosemide [Lasix -] 40 mg PO DAILY #30 tablet 03/23/18 Gabapentin 600 mg PO TID #90 tablet 03/23/18 Orphenadrine Citrate [Orphenadrine Citrate ER] 100 mg PO BID 05/31/18 Topiramate [Topiramate ER] 50 mg PO TID 05/31/18 Oxycodone HCl/Acetaminophen [Percocet 10-325 mg Tablet] 1 each PO TID MDD 2 06/26 Cephalexin Monohydrate [Keflex -] 500 mg PO Q6H #28 capsule 10/20/18 Review of Systems - Review of Systems Able to Perform ROS?: Yes Is the patient limited Turkmen proficient: No Constitutional: Yes: Chills, Night Sweats Respiratory: Yes: Orthopnea, Shortness of Breath, SOB with Exertion Cardiac (ROS): Yes: Edema, Lightheadedness. No: Chest Pain, Palpitations ABD/GI: No: Symptoms Reported : Yes: Symptoms Reported (difficulty maintaining stream of urine ) Musculoskeletal: Yes: Joint Pain, Muscle Pain, Muscle Weakness Neurological: Yes: Weakness, Unsteady Gait, Dizziness Hematologic/Lymphatic: Yes: Blood Clots <Joseph Calderon - Last Filed: 10/30/18 23:54> *Physical Exam - Vital Signs Last Vital Signs Temp Pulse Resp BP Pulse Ox 97.4 F L 85 18 113/62 99 10/30/18 19:04 10/30/18 19:04 10/30/18 19:04 10/30/18 19:04 10/30/18 19:04 - Physical Exam General Appearance: Yes: Nourished, Appropriately Dressed, Apparent Distress HEENT: positive: Normal Voice, Symmetrical Neck: positive: Supple Respiratory/Chest: positive: Lungs Clear, Normal Breath Sounds. negative: Chest Tender, Respiratory Distress, Accessory Muscle Use, Crackles, Rales, Wheezing Cardiovascular: positive: Regular Rhythm, Regular Rate, S1, S2, Edema, JVD. negative: Murmur Vascular Pulses: Dorsalis-Pedis (R): 2+, Doralis-Pedis (L): 2+ Gastrointestinal/Abdominal: positive: Normal Bowel Sounds, Soft Musculoskeletal: positive: Decreased Range of Motion. negative: CVA Tenderness Extremity: positive: Normal Capillary Refill, Normal Inspection, Tender, Pedal Edema (2+), Swelling, Calf Tenderness, Erythema. negative: Normal Range of Motion Integumentary: positive: Dry, Warm, Swelling, Other (Left second toe lesion, non erythematous, non-tender, no focal deficits ) Neurologic: positive: Fully Oriented, Alert, Normal Response, Motor Strength 5/5 <Joseph Calderon - Last Filed: 10/30/18 23:54> - Vital Signs Last Vital Signs Temp Pulse Resp BP Pulse Ox 97.4 F L 85 18 113/62 99 10/30/18 19:04 10/30/18 19:04 10/30/18 19:04 10/30/18 19:04 10/30/18 21:36 <Missy Tang - Last Filed: 10/31/18 01:10> Moderate Sedation - Procedure Monitoring Vital Signs: Procedure Monitoring Vital Signs Temperature 97.4 F L 10/30/18 19:04 Pulse Rate 85 10/30/18 19:04 Respiratory Rate 18 10/30/18 19:04 Blood Pressure 113/62 10/30/18 19:04 O2 Sat by Pulse Oximetry (%) 99 10/30/18 19:04 <Joseph Calderon - Last Filed: 10/30/18 23:54> - Procedure Monitoring Vital Signs: Procedure Monitoring Vital Signs Temperature 97.4 F L 10/30/18 19:04 Pulse Rate 85 10/30/18 19:04 Respiratory Rate 18 10/30/18 19:04 Blood Pressure 113/62 10/30/18 19:04 O2 Sat by Pulse Oximetry (%) 99 10/30/18 21:36 <Missy Tang - Last Filed: 10/31/18 01:10> ED Treatment Course - LABORATORY CBC & Chemistry Diagram: 10/30/18 21:20 10/30/18 21:28 - RADIOLOGY Radiology Studies Ordered: Category Date Time Status CXRPORT [CHEST X-RAY PORTABLE*] [RAD] Stat Radiology 10/30/18 20:50 Ordered <Joseph Calderon - Last Filed: 10/30/18 23:54> - LABORATORY CBC & Chemistry Diagram: 10/30/18 21:20 10/30/18 21:28 - ADDITIONAL ORDERS Additional order review: Laboratory Results 10/30/18 10/30/18 21:28 21:28 Sodium 135 L Potassium 4.0 Chloride 102 Carbon Dioxide 27 Anion Gap 6 L BUN 12 Creatinine 1.3 Creat Clearance w eGFR 57.53 Random Glucose 120 H Calcium 7.7 L Magnesium 2.1 Total Bilirubin 0.4 AST 95 H ALT 44 Alkaline Phosphatase 137 H Creatine Kinase 3524 H Creatine Kinase Index 0.4 CK-MB (CK-2) 16.9 H Troponin I < 0.02 B-Natriuretic Peptide 64.8 Total Protein 6.6 Albumin 3.7 10/30/18 21:20 RBC 4.31 MCV 91.9 MCHC 34.1 RDW 14.5 MPV 8.9 - Medications Given in the ED: ED Medications Discontinued Medications Generic Name Dose Route Start Last Admin Trade Name Glory PRN Reason Stop Dose Admin Acetaminophen 1,000 mg 10/30/18 21:41 10/30/18 21:55 Ofirmev Injection - IVPB 10/30/18 21:42 1,000 mg ONCE ONE Administration Calcium Carbonate 650 mg 10/30/18 22:45 10/30/18 23:10 Calcium Carbonate - PO 10/30/18 22:46 650 mg NOW ONE Administration Sodium Chloride 250 ml 10/30/18 21:40 10/30/18 21:55 Normal Saline - IV 10/30/18 21:41 250 ml ONCE ONE Administration <Missy Tang - Last Filed: 10/31/18 01:10> *DC/Admit/Observation/Transfer <Joseph Calderon - Last Filed: 10/30/18 23:54> - Discharge Dispostion Decision to Admit order: Yes <Missy Tang - Last Filed: 10/31/18 01:10> Diagnosis at time of Disposition: Lower extremity edema, Musculoskeletal pain, Leg swelling, Shortness of breath - Discharge Dispostion Condition at time of disposition: Stable - Referrals Referrals: Juan Sylvester MD [Primary Care Provider] - Konrad Bryan MD [Staff Physician] - 1 week - Patient Instructions Additional Instructions: You came in for shortness of breath, leg swelling and edema. We evaluated you for acute CHF exacerbation. Please continue taking your medication as prescribed, including your Lasix 40mg DAILY Please follow up with your Primary Care Physician within 1 week. Please follow up with your Flume Maker within 1 week to discuss your Lasix dose. Please return to the ED if you are experiencing chest pain, worsening shortness of breath, fever, notice that you have been gaining more than 3 pounds over the course of 2 days or any other concerning symptoms. - Post Discharge Activity
[2018-10-30 21:35] LABS: HEMATOCRIT 39.6 % (35.4-49); HEMOGLOBIN 13.5 GM/dL (11.7-16.9); MCH 31.4 pg (25.7-33.7); MCHC 34.1 g/dl (32.0-35.9); MEAN CELL VOLUME 91.9 fl (80-96); MEAN PLT VOLUME 8.9 fl (7.5-11.1); PLATELET COUNT 198 K/MM3 (134-434); RBC 4.31 M/mm3 (4.00-5.60); RDW 14.5 % (11.9-15.9); WHITE BLOOD COUNT 8.7 K/mm3 (4.0-10.0)
[2018-10-30] MEDS ORDERED: SODIUM CHLORIDE 0.9% 500 ML INFUS.BAG IV ONE (21:40)
[2018-10-30] MEDS ORDERED: ACETAMINOPHEN 1000 MG/100 ML VIAL (NON FORMULARY) IVPB ONE (21:41)
[2018-10-30] MEDS ORDERED: ACETAMINOPHEN INJECTION 100 ML IVPB ONE (21:43)
[2018-10-30 22:17] LABS: ALBUMIN 3.7 g/dl (3.4-5.0); ALK PHOS 137 U/L (45-117); ANION GAP 6 MMOL/L (8-16); BILIRUBIN,TOTAL 0.4 mg/dL (0.2-1); BLOOD UREA NITROGEN 12 mg/dL (7-18); CALCIUM 7.7 mg/dL (8.5-10.1); CHLORIDE 102 mmol/L (98-107); CO2 27 mmol/L (21-32); CREATININE 1.3 mg/dL (0.55-1.3); GLUCOSE,RANDOM 120 mg/dL (74-106); MAGNESIUM 2.1 mg/dL (1.8-2.4); N-TERMINAL BNP 64.8 pg/ml (5-125); SGOT/AST 95 U/L (15-37); SGPT/ALT 44 U/L (13-61); SODIUM 135 mmol/L (136-145); TOT PROT 6.6 g/dl (6.4-8.2)
[2018-10-30] MEDS ORDERED: CALCIUM CARBONATE 650 MG TABLET PO ONE (22:45)
[2018-10-31] MEDS ORDERED: LIDOCAINE 5% TOPICAL PATCH TP ONE (00:56)
[2018-10-31] MEDS ORDERED: FUROSEMIDE 40 MG TABLET (FP) PO ONE (01:01)
[2018-10-31] MEDS ORDERED: LIDOCAINE 5% TOPICAL PATCH ONE ×2 (01:02→14:10)
[2018-10-31] MEDS ORDERED: FUROSEMIDE 40 MG TABLET (FP) ONE (01:02)
[2018-10-31] MEDS ORDERED: ZOLPIDEM TARTRATE 5 MG TABLET PO PRN (01:57)
[2018-10-31] MEDS ORDERED: SUMAtriptan SUCCINATE 50 MG TABLET PO PRN (01:57)
[2018-10-31] MEDS ORDERED: diazePAM 5 MG TABLET PO PRN (01:57)
[2018-10-31] MEDS ORDERED: ACETAMINOPHEN 325 MG TABLET (FP) PO PRN (02:44)
[2018-10-31] MEDS: SODIUM CHLORIDE 1,000 ML IV SCH ×2 (04:04→21:35)
[2018-10-31] MEDS ORDERED: CEPHALEXIN MONOHYDRATE 500 MG CAPSULE (UD) ONE (05:29)
[2018-10-31 06:14] LABS: HEMATOCRIT 38.9 % (35.4-49); HEMOGLOBIN 12.7 GM/dL (11.7-16.9); MCH 30.2 pg (25.7-33.7); MCHC 32.6 g/dl (32.0-35.9); MEAN CELL VOLUME 92.5 fl (80-96); MEAN PLT VOLUME 8.4 fl (7.5-11.1); PLATELET COUNT 183 K/MM3 (134-434); RDW 14.9 % (11.9-15.9); WHITE BLOOD COUNT 8.4 K/mm3 (4.0-10.0)
[2018-10-31] MEDS: CEPHALEXIN MONOHYDRATE 500 MG CAPSULE (UD) PO SCH ×4 (06:22→23:48)
[2018-10-31] MEDS: GABAPENTIN 300 MG CAPSULE (FP) PO SCH ×3 (06:23→21:36)
[2018-10-31] MEDS: QUEtiapine FUMARATE 100 MG TABLET (FP) PO SCH ×3 (06:23→21:37)
[2018-10-31] MEDS: TOPIRAMATE 25 MG TABLET (FP) PO SCH ×3 (06:23→21:36)
[2018-10-31 06:42] LABS: ALBUMIN 3.3 g/dl (3.4-5.0); ALK PHOS 126 U/L (45-117); ANION GAP 8 MMOL/L (8-16); BILIRUBIN,TOTAL 0.5 mg/dL (0.2-1); BLOOD UREA NITROGEN 13 mg/dL (7-18); CALCIUM 7.9 mg/dL (8.5-10.1); CHLORIDE 99 mmol/L (98-107); CO2 29 mmol/L (21-32); CREATININE 1.4 mg/dL (0.55-1.3); GLUCOSE,RANDOM 124 mg/dL (74-106); SGOT/AST 90 U/L (15-37); SGPT/ALT 44 U/L (13-61); SODIUM 136 mmol/L (136-145); TOT PROT 6.2 g/dl (6.4-8.2)
[2018-10-31] MEDS: FUROSEMIDE 40 MG TABLET (FP) PO SCH (10:25)
[2018-10-31] MEDS: PANTOPRAZOLE 40 MG TABLET (FP) PO SCH (10:25)
[2018-10-31] MEDS: CALCIUM CARBONATE 650 MG TABLET PO SCH ×2 (10:25→21:36)
[2018-10-31] MEDS: ATENOLOL 25 MG TABLET (FP) PO SCH ×2 (10:25→21:36)
[2018-10-31] MEDS ORDERED: LIDOCAINE PATCH REMOVAL MC ONE (14:00)
[2018-10-31] MEDS ORDERED: diazePAM 5 MG TABLET ONE (14:09)
--- NOTE | 2018-10-31 15:07 | HP ---
DATE OF ADMISSION: 10/31/2018 CHIEF COMPLAINT: Increasing edema and weakness. This 53-year-old male with a past medical history of anxiety, bipolar disorder, coronary artery disease, PE, hypertension, hyperlipidemia, and morbid obesity, presented to the emergency room with increasing generalized weakness and leg swelling. The patient does not report any other specific complaints. PAST MEDICAL HISTORY: As above. PAST SURGICAL HISTORY: None known. FAMILY AND SOCIAL HISTORY: Unremarkable. Multiple allergies, including TORADOL, TRAMADOL, TRAZODONE, MORPHINE, MEPERIDINE. Home medications reviewed. REVIEW OF SYSTEMS: Unremarkable except for presenting complaints. PHYSICAL EXAMINATION: General: This is a morbidly obese male in no acute distress. Vital Signs: Temperature on admission was 98.7 degrees Fahrenheit. Pulse 76 per minute, regular. Blood pressure 105/64 with no orthostatic changes. Oxygen saturation 98%. HEENT: Within normal limits. Neck: Supple, with no JVD. Chest: Clear to auscultation. Heart: Rate and rhythm regular. S1 and S2 heard. Abdomen: Soft. Nontender, nondistended, with normal bowel sounds. Extremities: 1+ edema with chronic changes. Neurological: The patient was awake, alert, oriented x3, with no gross focal neurological deficits. LABORATORY EXAMINATION: WBC count 8.7, hemoglobin 13.5, hematocrit 39.6%, platelet count 198. Sodium 135, potassium 4, BUN 12, creatinine 1.3. Total creatine kinase level was 3524. IMPRESSION: Rhabdomyolysis, history of anxiety, morbid obesity, bipolar disorder, coronary artery disease, PE, hypertension, and hyperlipidemia. PLAN: The patient will be admitted and will be hydrated. Serial CPK levels will be tested. The patient's other usual medications will be continued. Further management will be according to the results of these interventions. Osmin [id number]
[2018-10-31] MEDS: NYSTATIN 500,000 UNITS/5 ML SUSPENSION PO SCH ×2 (18:59→22:25)
[2018-10-31] MEDS ORDERED: PT OWN MED DRAWER 7, Y5N ONE (21:20)
[2018-11-01] MEDS: oxyCODONE HCL 5 MG TABLET PO PRN ×2 (00:50→09:15)
[2018-11-01] MEDS: SODIUM CHLORIDE 1,000 ML IV SCH ×2 (02:15→09:19)
[2018-11-01] MEDS: CEPHALEXIN MONOHYDRATE 500 MG CAPSULE (UD) PO SCH ×3 (05:57→17:41)
[2018-11-01] MEDS: GABAPENTIN 300 MG CAPSULE (FP) PO SCH ×2 (05:57→13:04)
[2018-11-01] MEDS: TOPIRAMATE 25 MG TABLET (FP) PO SCH ×2 (05:57→13:04)
[2018-11-01] MEDS: QUEtiapine FUMARATE 100 MG TABLET (FP) PO SCH ×2 (06:43→13:06)
--- NOTE | 2018-11-01 07:18 | EKG ---
Test Reason : Blood Pressure : / mmHG Vent. Rate : 074 BPM Atrial Rate : 074 BPM P-R Int : 162 ms QRS Dur : 086 ms QT Int : 394 ms P-R-T Axes : 022 -03 019 degrees QTc Int : 437 ms NORMAL SINUS RHYTHM NORMAL ECG WHEN COMPARED WITH ECG OF 06-OCT-2018 14:51, NO SIGNIFICANT CHANGE WAS FOUND Confirmed by MANUEL CARDONA MD ([id number]) on 11/01/2018 7:17:43 AM Referred By: Confirmed By:MANUEL CARDONA MD
[2018-11-01] MEDS: ATENOLOL 25 MG TABLET (FP) PO SCH (09:17)
[2018-11-01] MEDS: CALCIUM CARBONATE 650 MG TABLET PO SCH (09:17)
[2018-11-01] MEDS: PANTOPRAZOLE 40 MG TABLET (FP) PO SCH (09:17)
[2018-11-01] MEDS: NYSTATIN 500,000 UNITS/5 ML SUSPENSION PO SCH ×3 (09:17→17:42)
[2018-11-01] MEDS: FUROSEMIDE 40 MG TABLET (FP) PO SCH (09:17)
[2018-11-01] MEDS ORDERED: PT OWN MED DRAWER 7, Y5N ONE (12:59)
[2018-11-01 14:34] VITALS: BP 107/61; PULSE 73; TEMP 97.4
== END 2018-11-01 17:20 | disposition left against medical advice (07) | DRG 558 ==
LOC: JER 18:59 → JERBED 10-31 01:11 → J6S 10-31 17:36
PROVIDERS: ADMIT Internal Medicine; ATTEND Internal Medicine
DX: M62.82 Rhabdomyolysis (principal); I50.30 Unspecified diastolic (congestive) heart failure; I11.0 Hypertensive heart disease with heart failure; R60.9 Edema, unspecified; F41.9 Anxiety disorder, unspecified; F31.9 Bipolar disorder, unspecified; E78.5 Hyperlipidemia, unspecified; E66.9 Obesity, unspecified; Z68.39 Body mass index [BMI] 39.0-39.9, adult; E83.51 Hypocalcemia; K21.9 Gastro-esophageal reflux disease without esophagitis; M79.18 Myalgia, other site; R06.02 Shortness of breath; Z86.718 Personal history of other venous thrombosis and embolism; Z96.653 Presence of artificial knee joint, bilateral
CPT/HCPCS: 36415; 71045-TC-FY; 80053; 82550; 82553; 83735; 83880; 84484; 85027; 93005; 93010; 99285-25; J0131; J7030